=== PATIENT | female | born 1940 | race Caucasian/White ===

== ENCOUNTER → 2018-02-05 09:42 | Outpatient (CLI) | payer MEDICARE, OTHER, SELFPAY ==
--- NOTE | 2018-02-05 | DI.MG.S_ITS ---
BILATERAL DIGITAL SCREENING MAMMOGRAM 3D/2D WITH CAD POST LUMPECTOMY: 02/05/2018 CLINICAL: Routine screening. Personal history of left breast cancer. Comparison is made to exams dated: 02/04/2017 mammogram, 01/24/2017 mammogram, and 01/18/2016 mammogram - [facility]. The tissue of both breasts is heterogeneously dense. This may lower the sensitivity of mammography. Current study was also evaluated with a Computer Aided Detection (CAD) system. There are post operative findings in the left breast. No significant masses, calcifications, or other findings are seen in either breast. There has been no significant interval change. IMPRESSION: NEGATIVE There is no mammographic evidence of malignancy. A 1 year screening mammogram is recommended. NOTE: For mammograms, a report in lay terms will be sent to the patient. Approximately 15% of breast malignancies will not be visualized mammographically. In the management of a palpable breast mass, a negative mammogram must not discourage biopsy of a clinically suspicious lesion. Electronically Signed By: Milagros travis/yue:02/05/2018 15:07:26 copy to: AI ADHIKARI letter sent: Normal Exam ACR BI-RADS Category 1: Negative 3341F
== END ==
PROVIDERS: PCP Physician Assistant; Visit Provider Physician Assistant
DX: Z12.31 Encounter for screening mammogram for malignant neoplasm of breast (principal); Z85.3 Personal history of malignant neoplasm of breast; M85.851 Other specified disorders of bone density and structure, right thigh
CPT/HCPCS: 77063; 77067; 77080

== ENCOUNTER → 2018-04-08 13:59 | Outpatient (CLI) | payer MEDICARE, OTHER, SELFPAY ==
--- NOTE | 2018-04-08 | DI.RAD.S_ITS ---
PROCEDURE: XR KNEE LT 1TO2V INDICATIONS: PAIN IN LEFT KNEE TECHNIQUE: 2 views of the knee were acquired. COMPARISON: None. FINDINGS: Bones: No fractures or dislocations. No suspicious bony lesions. Soft tissues: No joint effusion. No suspicious soft tissue calcifications. IMPRESSION: No acute fractures or dislocations. Dictated by: Nain Caruso M.D. on 04/08/2018 at 15:30 Approved by: Nain Caruso M.D. on 04/08/2018 at 15:30
== END ==
PROVIDERS: Visit Provider Student in an Organized Health Care Education/Training Program
DX: M25.562 Pain in left knee (principal)
CPT/HCPCS: 73560

== ENCOUNTER → 2018-06-09 08:01 | Outpatient (CLI) | payer MEDICARE, OTHER, SELFPAY ==
--- NOTE | 2018-06-09 | DI.MRI.S_ITS ---
PROCEDURE: MR SHOULDER RT WO CON INDICATIONS: RIGHT SHOULDER PAIN TECHNIQUE: Noncontrast oblique coronal T2 fast spin echo with fat saturation, oblique sagittal T1 spin echo and T2 fast spin echo with fat saturation, axial T1 spin echo and T2 fast spin echo with fat saturation through the shoulder. COMPARISON: None. FINDINGS: Image quality: Excellent. Rotator cuff: There is full-thickness rupture of distal supraspinatus as well as anterior fibers of distal infraspinatus at their insertions on the greater tuberosity of humeral head with 2.7 cm medial retraction of torn tendon fibers to the level of acromioclavicular joint. Tendinosis and moderate grade articular surface partial thickness tear involving the posterior fibers of distal infraspinatus is also seen. There is tendinosis and moderate grade intrasubstance partial-thickness tear involving distal subscapularis. Sagittal images demonstrate moderate supraspinatus muscle atrophy and mild to moderate infraspinatus muscle atrophy. Bones and bursae: There is moderate acromioclavicular joint and glenohumeral joint osteoarthritis. Small to moderate amount of glenohumeral joint fluid in subacromial subdeltoid bursal fluid is seen. No gross loose body. Capsule and soft tissues: In the absence of intra-articular contrast, the labrum and glenohumeral ligaments appear intact. There is nonvisualization of the proximal intra-articular portion of long head biceps tendon suggestive of proximal long head of biceps tendon tear. The rotator interval appears normal, without fibrosis. The coracohumeral ligament is normal in thickness. IMPRESSION: 1. Full-thickness rupture of distal supraspinatus and anterior fibers of distal infraspinatus at their insertions greater tuberosity of humeral head with 2.7 cm medial retraction of torn tendon fibers to the level of acromioclavicular joint. 2. Tendinosis and moderate grade articular surface partial thickness involving posterior fibers of distal infraspinatus. Tendinosis and moderate grade intrasubstance partial-thickness tear involving distal subscapularis. 3. Moderate supraspinatus muscle atrophy and mild to moderate infraspinatus muscle atrophy. 4. Moderate acromioclavicular and glenohumeral joint osteoarthritis. Small to moderate amount of joint effusion and subacromial subdeltoid bursal fluid. 5. Suggestion of cord intra-articular portion of proximal long head of biceps tendon. 6. No gross focal labral tear. Dictated by: Carmelo Bahena M.D. on 06/09/2018 at 10:07 Approved by: Carmelo Bahena M.D. on 06/09/2018 at 10:18
== END ==
PROVIDERS: PCP Physician Assistant; Visit Provider Physician Assistant
DX: M25.511 Pain in right shoulder (principal); M75.121 Complete rotator cuff tear or rupture of right shoulder, not specified as traumatic; M19.011 Primary osteoarthritis, right shoulder; M25.411 Effusion, right shoulder
CPT/HCPCS: 73221

== ENCOUNTER → 2019-02-10 09:14 | Outpatient (CLI) | payer MEDICARE, OTHER, SELFPAY ==
--- NOTE | 2019-02-10 09:16 | DI.MG.S_ITS ---
BILATERAL DIGITAL SCREENING MAMMOGRAM 3D/2D WITH CAD POST LUMPECTOMY: 02/10/2019 CLINICAL: Routine screening. Personal history of left breast cancer. Comparison is made to exams dated: 02/05/2018 mammogram, 01/24/2017 mammogram, and 01/18/2016 mammogram - [facility]. The tissue of both breasts is heterogeneously dense. This may lower the sensitivity of mammography. Current study was also evaluated with a Computer Aided Detection (CAD) system. There are benign post operative findings in the left breast. There also are benign calcifications in both breasts. No significant masses, calcifications, or other findings are seen in either breast. There has been no significant interval change. IMPRESSION: There is no mammographic evidence of malignancy. A 1 year screening mammogram is recommended. This exam was interpreted at Station ID: [id number]. NOTE: For mammograms, a report in lay terms will be sent to the patient. Approximately 15% of breast malignancies will not be visualized mammographically. In the management of a palpable breast mass, a negative mammogram must not discourage biopsy of a clinically suspicious lesion. Electronically Signed By: Reginald gorman/yue:02/10/2019 11:37:49 copy to: AI ADHIKARI letter sent: Normal Exam ACR BI-RADS Category 2: Benign Finding(s) 3342F
[2019-02-10 11:16] LABS: Add Manual Diff / Slide Review NO; Basophils Absolute Auto 100 /uL (0-100); Basophils Percent Auto 1.1 % (0-2); Eosinophils Absolute Auto 100 /uL (0-450); Eosinophils Percent Auto 1.5 % (2-4); Hematocrit 42.6 % (36-46); Lymphocytes Absolute Auto 1800 /uL (1100-4500); Lymphocytes Percent Auto 32.9 % (25-40); Mean Corpuscular HGB Conc 32.8 % (30-36); Mean Corpuscular Hemoglobin 31.5 PG (26-34); Mean Corpuscular Volume 96.1 fL (80-100); Monocytes Absolute Auto 700 /uL (0-900); Monocytes Percent Auto 12.9 % (3-14); Neutrophils Absolute Auto 2800 /uL (1500-7000); Neutrophils Percent Auto 51.6 % (50-75); Platelet Count 224 X10^3/uL (150-400); Red Blood Cell Count 4.43 X10^6/uL (4.0-5.2); Red Cell Distribution Width 13.7 % (11.6-14.8); White Blood Cell Count 5.4 X10^3/uL (4.5-11.0)
[2019-02-10 11:38] LABS: Alanine Aminotransferase 21 IU/L (9-52); Albumin 4.1 g/dL (3.5-5.0); Albumin Globulin Ratio 1.3 (1.0-2.8); Alkaline Phosphatase 58 U/L (38-126); Aspartate Aminotransferase 22 IU/L (14-36); BUN Creatinine Ratio 16.7 (6-22); Bilirubin Total 0.5 mg/dL (0.2-1.3); Blood Urea Nitrogen 10 mg/dL (7-17); Calcium 9.4 mg/dL (8.4-10.2); Carbon Dioxide 29 mmol/L (22-32); Chloride 105 mmol/L (98-107); Cholesterol 195 mg/dL (140-199); Estimated Glomerular Filt Rate > 60.0 mL/min (>60); Globulin 3.2 g/dL (1.7-4.1); Glucose 106 mg/dL (80-110); HDL Cholesterol 65 mg/dL (40-60); HEMOLYSIS < 15 (0-50); LDL Cholesterol Calculated 100 mg/dL (<100); Sodium 142 mmol/L (137-145); Total Protein 7.3 g/dL (6.3-8.2); Triglycerides 150 mg/dL (35-150)
== END ==
PROVIDERS: PCP Nurse Practitioner; Visit Provider Nurse Practitioner
DX: Z00.00 Encounter for general adult medical examination without abnormal findings (principal); Z12.31 Encounter for screening mammogram for malignant neoplasm of breast; Z85.3 Personal history of malignant neoplasm of breast; M81.0 Age-related osteoporosis without current pathological fracture; Z78.0 Asymptomatic menopausal state; Z82.62 Family history of osteoporosis; Z90.722 Acquired absence of ovaries, bilateral; Z87.891 Personal history of nicotine dependence
CPT/HCPCS: 36415; 77063; 77067; 77080; 80053; 80061; 85025

== ENCOUNTER → 2019-02-24 13:40 | Oncology outpatient (ONC) | payer MEDICARE, OTHER, SELFPAY ==
--- NOTE | 2018-02-17 11:37 | P.PNONC_ITS ---
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 She is now 10 years out from that diagnosis. No findings whatsoever on exam today that would indicate disease recurrence. Patient has no clinical signs or symptoms of disease recurrence. Most recent mammogram February 05, 2018 was reported to be without evidence of malignancy. Bone density screen also February 05, 2018 demonstrated improved bone density. There was no blood work procured for todays visit. Return to clinic in 1 years time for provider visit, CBC, CMP. Continue with annual screening mammograms. Patient does have a history of osteopenia/ osteoporosis she was treated annually x 5 years with Reclast with excellent response recommend repeat bone density imaging in 1 year to demonstrate stability. 02/17/18 12:08 - Time Spent with Patient 35 minutes PN -Subjective Interval history: The patient is a 78 year old Female who is being seen in the clinic 02/17/2018 for diagnosis of early-stage triple negative breast cancer, in remission/ surveillance since original diagnosis made in February of 2008. She is now 10 years out from that diagnosis. She was receiving yearly Reclast [id number], bone density testing 02/05/2018 demonstrates excellent response to Reclast with significant increase in the AP spine, neck left femur and total left femur when compared to previous exam January 29, 2017. Danica has no new complaints whatsoever on exam today, states overall she is feeling very well. She takes no prescription medications aside from Crestor. She sees Candace Hutton PA-C annually for her primary care. Specifically she denies any changes with her breasts, no new lumps or bumps. No pain. No skin changes. She has not had any recent illnesses or infections. Activity tolerance is unchanged. Appetite is unchanged, weight is stable. Bladder and bowel habits are unchanged. No new pain. No headaches. Past Medical History The patient's past medical history is significant for: 1. Early-stage triple negative breast cancer, in remission since 2007. She is up to date with her imaging studies, including her last bilateral screening mammogram dated 01/11/2015, showing no evidence of recurrent disease. Breast exams are done formerly with Joanne Baires now by Candace Hutton PA-C who has replaced joanne. Pt. is scheduled for an appointment with Candace the end of this month. 2. Osteopenia, with her most recent bone density scan dated January 18, 2016, showing a definitive treatment response to her Reclast. Specifically, in the left neck of the femur in December of 2013 was -2.5, improved to -1.9 on January 18, 2016. Total Left Femur in 2013 -1.1 improved to -0.5 in 2015. Total Right femur -2.6 in 2013, improved to -2.4 in 2015. Results - Imaging Additional studies: Procedures Closed [endoscopic] biopsy of large intestine (09/08/13) Home Medications and Allergies Home Medications Medication Instructions Recorded Confirmed Type FLAXSEED (FLAXSEED OIL) 1 cap PO Q DAY #0 01/09/12 02/17/18 History CA PANTOTHENATE/FOLIC ACID/VIT 1 tab PO QDAY #0 01/12/13 02/17/18 History (MULTIVITAMIN) Coenzyme Q10 (#CO Q-10) 50 mg PO BID #0 01/12/13 02/17/18 History Fish Oil (Fish Oil 500 MG Softgel) 500 mg PO BID #0 01/12/13 02/17/18 History VITAMIN B COMPLEX (Vitamin B 1 tab PO Q DAY #0 01/12/13 02/17/18 History Complex) VITAMIN D (Vitamin D3) 1,000 unit PO QDAY #0 01/12/13 02/17/18 History VITAMIN E (#VITAMIN E MIXED) 100 iu PO Q DAY #0 01/12/13 02/17/18 History aspirin 81 mg PO QDAY #0 01/12/13 02/17/18 History rosuvastatin [Crestor] 10 mg PO QDAY #0 01/12/13 02/17/18 History acetaminophen [Tylenol] 325 mg PO Q4-6H PRN 02/17/18 02/17/18 History lutein 20 mg PO DAILY 02/17/18 02/17/18 History Allergies Allergy/AdvReac Type Severity Reaction Status Date / Time No Known Drug Allergies Allergy Verified 02/17/18 11:49 Exam Narrative: well appearing, appears younger than chronological age of 78. - Constitutional positive no acute distress, positive average body habitus - Routine HEENT Exam Head: Present: normocephalic, atraumatic Eye: Present: EOMI, PERRL, normal accommodation, conjunctivae pink. Absent: conjunctival icterus, scleral injection ENT: Present: mucous membranes moist - Routine Neck Exam Present: supple. Absent: lymphadenopathy - Routine Chest/Breast/Axilla Exam Chest wall exam standard: Absent: tenderness, mass Breast: Absent: tenderness, induration, mass, rashes Axillae: Absent: lymphadenopathy, mass, tenderness Comments: left lumpectomy - Routine Respiratory Exam Present: Clear to auscultation bilaterally. Absent: rales, rhonchi, wheezes - Routine Cardiovascular Exam Present: RRR, S1, S2. Absent: murmur, gallop, rubs, JVD - Routine Abdominal Exam Present: soft, normoactive bowel sounds. Absent: tenderness, distended, organomegaly - Routine Extremities Exam Absent: edema - Routine Skin Exam Present: intact, normal turgor. Absent: petechiae, rash - Routine Neurological Exam Present: alert, oriented X3 - Routine Psychiatric Exam Present: normal affect
[2018-02-17 11:47] VITALS: BP 145/85; PULSE 62; RESP 15; TEMP 37.2; O2SAT 98
[2019-02-24 13:47] VITALS: BP 139/64; PULSE 73; RESP 18; TEMP 36.7; O2SAT 100
--- NOTE | 2019-02-24 14:28 | P.PNONC_ITS ---
PN -Subjective Interval history: Diagnosis: Left-sided triple negative breast cancer Previous treatment: 1. Lumpectomy and sentinel node biopsy in February 2008 2. Adjuvant chemotherapy with what sounds like Adriamycin and Cytoxan 3. Adjuvant radiation Interval history: The patient is a 78 year old Female who is being seen in the clinic for diag nosis of early-stage triple negative breast cancer, in remission/surveillance since original diagnosis made in February of 2008. She is now 11 years out from that diagnosis. Since her last visit here, she has been feeling generally well and has no specific complaints today. She has not noted any changes or mass in the breast. She denies any new aches or pains. No fevers chills or sweats. Appetite and energy level have been stable. She did have recent oral surgery for a cyst. She has not noted any other changes in her health. Past Medical History The patient's past medical history is significant for: 1. Early-stage triple negative breast cancer, in remission since 2007. She is up to date with her imaging studies, including her last bilateral screening mammogram dated 01/11/2015, showing no evidence of recurrent disease. Breast exams are done formerly with Joanne Baires now by Candace Hutton PA-C who has replaced joanne. Pt. is scheduled for an appointment with Candace the end of this month. 2. Osteopenia, with her most recent bone density scan dated January 18, 2016, showing a definitive treatment response to her Reclast. Specifically, in the left neck of the femur in December of 2013 was -2.5, improved to -1.9 on January 18, 2016. Total Left Femur in 2013 -1.1 improved to -0.5 in 2015. Total Right femur -2.6 in 2013, improved to -2.4 in 2016. Home Medications and Allergies Home Medications Medication Instructions Recorded Confirmed Type FLAXSEED (FLAXSEED OIL) 1 cap PO Q DAY #0 01/09/12 02/24/19 History CA PANTOTHENATE/FOLIC ACID/VIT 1 tab PO QDAY #0 01/12/13 02/23/19 History (MULTIVITAMIN) Coenzyme Q10 (#CO Q-10) 50 mg PO BID #0 01/12/13 02/24/19 History Fish Oil (Fish Oil 500 MG Softgel) 500 mg PO BID #0 01/12/13 02/24/19 History VITAMIN B COMPLEX (Vitamin B 1 tab PO Q DAY #0 01/12/13 02/24/19 History Complex) VITAMIN D (Vitamin D3) 1,000 unit PO QDAY #0 01/12/13 02/24/19 History VITAMIN E (#VITAMIN E MIXED) 100 iu PO Q DAY #0 01/12/13 02/24/19 History aspirin 81 mg PO QDAY #0 01/12/13 02/23/19 History lutein 20 mg PO DAILY 02/17/18 02/24/19 History rosuvastatin 10 mg tablet 10 mg PO QDAY #90 tab 01/08/19 02/23/19 Rx naproxen sodium [Aleve] 220 mg PO Q12H PRN 02/24/19 02/24/19 History Allergies Allergy/AdvReac Type Severity Reaction Status Date / Time No Known Drug Allergies Allergy Verified 02/23/19 09:45 Exam Vital signs: Vital Signs Temp Pulse Resp BP Pulse Ox 02/24/19 13:47 98.1 F 73 18 139/64 100 Intake and Output 02/23/19 02/24/19 02/24/19 23:59 07:59 15:59 Other: Weight 76.6 kg Patient Weight 02/24/19 23:59 Weight 76.6 kg - Constitutional positive no acute distress, positive average body habitus - Routine HEENT Exam Head: Present: normocephalic, atraumatic Eye: Present: EOMI, PERRL. Absent: conjunctival icterus ENT: Present: mucous membranes moist, oropharynx clear - Routine Neck Exam Present: supple. Absent: lymphadenopathy, thyromegaly - Routine Chest/Breast/Axilla Exam Comments: Breast exam shows a well-healed incision on the lateral left breast. There is no nodularity or erythema. There are no suspicious masses. No masses in the right breast. No axillary adenopathy on either side. - Routine Respiratory Exam Present: Clear to auscultation bilaterally. Absent: rales, wheezes - Routine Cardiovascular Exam Present: RRR, S1, S2. Absent: murmur - Routine Abdominal Exam Present: soft, normoactive bowel sounds. Absent: tenderness, organomegaly, mass - Routine Extremities Exam Absent: cyanosis, clubbing, edema - Routine Back/Spine Exam Back/Spine: Absent: vertebral tenderness - Routine Skin Exam Present: intact. Absent: petechiae, rash - Routine Neurological Exam Present: alert, oriented X3 - Routine Psychiatric Exam Present: normal affect, normal thought process Results - Imaging Additional studies: Procedures Closed [endoscopic] biopsy of large intestine (09/08/13) Assessment and Plan (1) Breast cancer Current visit: No Status: Acute 79-year-old woman with a distant history of triple negative breast cancer. She is now 11 years out from her diagnosis. She has no evidence of disease. Recent mammogram was negative. At this point, I think her risk of relapse is very low. She is at somewhat increased risk compared to the general population for a 2nd primary cancer. She will need to have an annual breast exam and mammogram in the future. I explained that this could be done either here or by her primary physician and she prefers to follow up with her primary. She does have a history of osteoporosis. Recent bone density showed osteoporosis in the hip but not in the spine. She previously had been on zoledronic acid annually. However because of her recent jaw surgery, I think it would be prudent to wait sometime before resuming any bisphosphonate. The patient prefers to follow up with her primary physician. I have not scheduled a follow-up appointment for her here but would be happy to see her again in the future should any new problems arise.
--- NOTE | 2020-06-12 09:49 | ONC.MSW ---
Description: Referral Cancelled Activity: Received an urgent referral for pt from her PCP, sent last . Pt was sent to [facility], as they were not able to schedule with us last week. Pt actually did not need a new referral, and was already an established pt here. LEGAL SERVICE SPECIALIST spoke with the clinical support tech and confirmed the process for referrals and the timeline when an established pt can not be seen before requiring a new referral (3-years).
== END ==
PROVIDERS: PCP Nurse Practitioner
DX: Z85.3 Personal history of malignant neoplasm of breast (principal); Z08 Encounter for follow-up examination after completed treatment for malignant neoplasm; M81.0 Age-related osteoporosis without current pathological fracture
CPT/HCPCS: 99214

== ENCOUNTER 2019-10-07 13:21 | Day surgery (SDC) | payer MEDICARE, OTHER, SELFPAY ==
[2019-10-07 13:50] VITALS: BMI 28.8
[2019-10-07 13:57] VITALS: BP 153/88; PULSE 80; RESP 20; TEMP 36.8; O2SAT 94
[2019-10-07] MEDS: SODIUM CHLORIDE 0.9% 1,000 ML 200 ML IV (14:11)
--- NOTE | 2019-10-07 14:33 | PM.HP.1 ---
History of Present Illness History of Present Illness Date Patient Seen: 10/07/19 Time Patient Seen: 14:33 Chief complaint: [id number] Narrative: Patient presents for colorectal screening. Last colonoscopy was 5 years which was significant for adenomatous polyps which were removed. No personal or family history of colon cancer. On further history denies any recent gastrointestinal symptoms. No nausea, vomiting, abdominal pain, loss of appetite, unexplained weight loss, change in bowel habits, diarrhea, constipation, melena, hematochezia, or bright red blood per rectum. Patient History Medical History Breast cancer (Chronic ~2006) Cataracts, bilateral (Chronic ~2013) Chicken pox (Resolved) Eczema (Resolved) Essential tremor (Chronic) Fibroids (Chronic) History of urinary incontinence (Chronic) Measles (Resolved) Osteopenia (Chronic) Rubella (Resolved) Surgical History Anesthesia (Resolved) Hammer toe (Resolved ~2015) History of back surgery (Resolved ~1982) History of colonoscopy (Resolved) History of hysterectomy (Resolved ~1988) History of oral surgery (Resolved ~12/2018) Family & Social History Family History Father Cancer Mother History of heart disease Brother Hypertension Sister Hyperlipidemia Hypertension Grandfather Cancer Grandmother Hypertension Grandfather Kidney failure Family/Other Suicide Social History: household members spouse Tobacco & Substance use: Smoking Status Former smoker alcohol intake current alcohol intake frequency a few times a week Substance Use Type does not use Meds Home Medications and Allergies Home Medications Medication Instructions Recorded Confirmed Type aspirin 81 mg PO QDAY #0 01/12/13 10/07/19 History lutein 20 mg PO DAILY 02/17/18 10/07/19 History rosuvastatin 10 mg tablet 10 mg PO QDAY #90 tab 01/08/19 10/07/19 Rx naproxen sodium [Aleve] 220 mg PO Q12H PRN 02/24/19 10/07/19 History estradiol 10 mcg vaginal tablet 10 mcg VAG DAILY 90 Days #90 tab 06/04/19 10/07/19 Rx cholecalciferol (vitamin D3) 5,000 unit PO DAILY 10/07/19 10/07/19 History [Vitamin D3] multivitamin 1 cap PO DAILY 10/07/19 10/07/19 History tolterodine 4 mg PO DAILY 10/07/19 10/07/19 History Allergies Allergy/AdvReac Type Severity Reaction Status Date / Time No Known Drug Allergies Allergy Verified 10/07/19 13:44 Review of Systems Review of Systems Narrative: A 10 point review of systems is negative except as noted in the HPI Exam Vital Signs (past 8 hours): - 10/07/19 13:57 Temperature 98.3 F Pulse Rate 80 Respiratory Rate 20 Blood Pressure 153/88 H Pulse Oximetry 94 Oxygen Delivery Method Room Air Narrative Exam Narrative: General-no acute distress, well nourished HEENT-moist mucous membranes, no scleral icterus Neck-supple, no lymphadenopathy Chest- non labored respirations, clear to auscultation bilaterally Cardiac-regular rate no peripheral edema Abdomen-soft, nontender, non distended Extremities-warm, well perfused Neurological-alert and oriented, no focal deficits Assessment & Plan Assessment and plan (1) Screening for colon cancer: Current visit: Yes Status: Acute Assessment & Plan narrative: The patient requires colorectal screening and colonoscopy is recommended. Technical details were discussed. Risks, benefits, alternatives explained. Risks including but not limited to myocardial infarction, aspiration, bleeding, pain, missed lesion, incomplete examination, need for further radiographic studies, colonic perforation, and need for major abdominal surgery were discussed. All questions were answered to their satisfaction, and they are in agreement with this plan.
--- NOTE | 2019-10-07 14:37 | PM.OP.ENDO ---
Operative Date/Time/Diagnoses Date of procedure: 10/07/19 Time of procedure: 14:38 Pre-op diagnosis: History adenomatous polyps Post-op diagnosis: same Procedure & Clinicians Study performed: Colonoscopy Same procedure as scheduled: Yes Indications: History adenomatous polyp Surgeon: Lux South Procedure Notes SCOAP/Timeout: Performed Procedure in detail: Patient placed in left lateral decubitus position. Time out was performed. Procedural sedation was administered with Versed and Fentanyl. A rectal exam demonstrated no external hemorrhoids no internal masses. Colonoscopy scope was placed into the rectum and advanced through the colon to the cecum. The ileocecal valve was identified. The scope was then slowly withdrawn examining colon thoroughly in all directions. The colonoscopy was notable for the following 1. Sigmoid diverticulosis 2. Grade 1 internal hemorrhoids 3. No masses or polyps 4. Quality of prep excellent Scope withdrawal time: 7 Sedation minutes: 25 Findings: diverticulosis and internal hemorrhoids Specimen(s): none sent Complications: none Impression: Diverticulosis Post-procedure Recommendations: Colonscopy in 10 years Disposition: same day surgery
[2019-10-07] MEDS: MIDAZOLAM 5 MG/5 ML VIAL IV (15:02)
[2019-10-07] MEDS: fentaNYL 250 MCG/5 ML INJ IV (15:02)
[2019-10-07 15:05] VITALS: BP 139/79; PULSE 76; RESP 17; TEMP 36.7; O2SAT 95
[2019-10-07 15:10] VITALS: BP 129/64; PULSE 73; RESP 16; O2SAT 96
[2019-10-07 15:24] VITALS: BP 142/74; PULSE 74; RESP 16; TEMP 36.1; O2SAT 95
== END 2019-10-07 15:51 | disposition home or self-care (01) ==
PROVIDERS: PCP Nurse Practitioner; Referring Provider Surgery; Visit Provider Surgery
PROC: 0DJD8ZZ Inspection of Lower Intestinal Tract, Via Natural or Artificial Opening Endoscopic (ICD-10-PCS; CPT 45378; principal; 2019-10-07 14:30)
DX: Z12.11 Encounter for screening for malignant neoplasm of colon (principal); Z86.010 Personal history of colon polyps; K57.30 Diverticulosis of large intestine without perforation or abscess without bleeding; K64.0 First degree hemorrhoids
CPT/HCPCS: G0105; 99152; 99153; J2250; J3010

== ENCOUNTER → 2020-04-18 11:05 | Outpatient (CLI) | payer MEDICARE, OTHER, SELFPAY ==
--- NOTE | 2020-04-18 11:20 | DI.MG.S_ITS ---
Patient Name: JOHN RENE date: 1940 Sex: F Attending Physician: Donnie Indications: Date: 04/18/2020 11:13 At the request of: ELSA SANCHES Procedure: MM screening mammo BI BILATERAL DIGITAL SCREENING MAMMOGRAM 3D/2D WITH CAD POST LUMPECTOMY: 04/18/2020 CLINICAL: Routine screening. Personal history of left breast cancer. Comparison is made to exams dated: 02/10/2019 mammogram, 02/05/2018 mammogram, 01/24/2017 mammogram, 02/04/2017 mammogram, and 01/18/2016 mammogram - [facility]. The tissue of both breasts is heterogeneously dense. This may lower the sensitivity of mammography. Current study was also evaluated with a Computer Aided Detection (CAD) system. The left breast has post-operative findings. There is a possible developing 1 cm asymmetry in the left breast at 10 o'clock posterior depth. No other significant masses, calcifications, or other findings are seen in either breast. IMPRESSION: INCOMPLETE: NEEDS ADDITIONAL IMAGING EVALUATION The possible developing 1 cm asymmetry in the left breast is indeterminate. Additional views with possible ultrasound are recommended. This exam was interpreted at Station ID: [id number]. NOTE: For mammograms, a report in lay terms will be sent to the patient. Approximately 15% of breast malignancies will not be visualized mammographically. In the management of a palpable breast mass, a negative mammogram must not discourage biopsy of a clinically suspicious lesion. Electronically Signed By: Monty cali/yue:04/18/2020 12:31:43 copy to: AI ADHIKARI Continued Report - Page 2 of 2 Patient Name: JOHN RENE date: 1940 Sex: F Attending Physician: Donnie Indications: Date: 04/18/2020 11:13 At the request of: ELSA SANCHES Procedure: MM screening mammo BI letter sent: Additional Imaging Needed ACR BI-RADS Category 0: Incomplete 3340F
== END ==
PROVIDERS: PCP Nurse Practitioner; Referring Provider Nurse Practitioner; Visit Provider Nurse Practitioner
DX: Z12.31 Encounter for screening mammogram for malignant neoplasm of breast (principal); Z85.3 Personal history of malignant neoplasm of breast
CPT/HCPCS: 77063; 77067

== ENCOUNTER → 2020-05-12 14:57 | Outpatient (CLI) | payer MEDICARE, OTHER, SELFPAY ==
--- NOTE | 2020-05-12 14:58 | DI.US.S_ITS ---
PROCEDURE: US BREAST LT LIMITED COMPARISON: Merged With [facility], MG, MM SCREENING MAMMO BI, 04/18/2020, 11:20. INDICATIONS: abnormal mammogram, left breast FINDINGS: IMPRESSION: Dictated by: Gagan Albert M.D. on 05/12/2020 at 16:22 Approved by: Gagan Albert M.D. on 05/12/2020 at 16:24
--- NOTE | 2020-05-12 14:58 | DI.MG.S_ITS ---
UNILATERAL LEFT DIGITAL DIAGNOSTIC MAMMOGRAM 3D/2D WITH ADDITIONAL VIEWS POST LUMPECTOMY: 05/12/2020 CLINICAL: Additional evaluation requested from prior study. Comparison is made to exams dated: 04/18/2020 mammogram, 02/10/2019 mammogram, and 02/05/2018 mammogram - [facility]. The tissue of left breast is heterogeneously dense. This may lower the sensitivity of mammography. The left breast has post-operative findings. There is a 1 cm irregular mass with an obscured and spiculated margin in the left breast at 10 o'clock posterior depth. No other significant masses or calcifications are seen in the breast. IMPRESSION: INCOMPLETE: NEEDS ADDITIONAL IMAGING EVALUATION The 1 cm irregular mass in the left breast is indeterminate. An ultrasound is recommended. This exam was interpreted at Station ID: [id number]. NOTE: For mammograms, a report in lay terms will be sent to the patient. Approximately 15% of breast malignancies will not be visualized mammographically. In the management of a palpable breast mass, a negative mammogram must not discourage biopsy of a clinically suspicious lesion. Electronically Signed By: Gagan Albert M.D., jr/yue:05/12/2020 16:20:41 copy to: AI ADHIKARI ACR BI-RADS Category 0: Incomplete [id number]
--- NOTE | 2020-05-12 15:51 | DI.US.S_ITS ---
Diagnostic Imaging [address] [place] [id number] PHONE: [phone] Patient Name: JOHN RENE date: 1940 Sex: F Attending Physician: Donnie Indications: Date: 05/12/2020 15:56 At the request of: ELSA SANCHES Procedure: US breast LT limited LIMITED ULTRASOUND OF LEFT BREAST: 05/12/2020 CLINICAL: Patient returns today to evaluate a focal asymmetry in the left breast. No prior exams were available for comparison. Ultrasound of the left breast 11-2 o'clock region was performed. There is a 1.5 cm taller than wide irregular mass with an indistinct and angular margin in the left breast at 10 o'clock middle depth 8 cm from the nipple. This irregular mass is hypoechoic with posterior acoustic shadowing. There is associated architectural distortion. Color flow imaging demonstrates that there is increased vascularity. IMPRESSION: SUSPICIOUS OF MALIGNANCY The 1.5 cm taller than wide irregular mass in the left breast is suspicious of malignancy. An ultrasound guided biopsy is recommended. This exam was interpreted at Station ID: [id number]. Electronically Signed By: Gagan Albert M.D., jr/yue:05/12/2020 16:24:39 copy to: AI ADHIKARI letter sent: Biopsy Required Ultrasound BI-RADS: 4 Suspicious for malignancy
== END ==
PROVIDERS: PCP Nurse Practitioner; Referring Provider Nurse Practitioner; Visit Provider Nurse Practitioner
DX: R92.8 Other abnormal and inconclusive findings on diagnostic imaging of breast (principal); N63.22 Unspecified lump in the left breast, upper inner quadrant
CPT/HCPCS: 76642; 77065; G0279

== ENCOUNTER → 2020-05-31 12:29 | Outpatient (CLI) | payer MEDICARE, OTHER, SELFPAY ==
--- NOTE | 2020-05-31 | PATH_ITS ---
[facility] Accession Number: [id number] . 01 Material submitted: . breast - LEFT BREAST 10:00 . 01 Clinical history: . LEFT BREAST 10:00 8 CENTIMETERS FROM THE NIPPLE . 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 Specimen laterality: Left. Tumor site: 10 o'clock, 8 cm from nipple. Tumor size: Greatest dimension of largest invasive focus: 9 mm. Histologic type: Invasive carcinoma of no special type (ductal) by e-cadherin immunostain. Histologic grade: Grade 3. Glandular/tubular differentiation: Score 3; Nuclear pleomorphism: Score 3; Mitotic rate: Score 2. Overall grade: Grade 3 (8/9). Ductal carcinoma in situ: Not identified. Lymphovascular invasion: Not identified. Microcalcifications: Not identified. Ancillary studies: Please see microscopic section for biomarker studies; HER2 FISH studies pending. Results will be reported as an addendum. MRV 06/02/2020 1542 Local . 02 Comment: HER2 FISH studies pending; results will be reported as an addendum. . As part of ongoing bottle house quality control technician, this case is also reviewed by Dr. Stuart, who concurs with the given interpretation. . Results called to Kia Fields's nurse, Nohemy, on 06/02/2020 at approximately 2:08 p.m. . 02 Electronically signed: . Sayra Bruno MD, Pathologist NPI- [id number] . 01 Gross description: . Received one formalin-filled container, labeled with the patient's name and labeled LT breast. The specimen is received with a plastic filter in container, sample loose in container and consists of multiple fragments of yellow-carmona soft tissue and blood which range in size from less than 0.1 cm to 1.2 x 0.4 x 0.3 cm. All fragments are totally submitted in one cassette. Collection date per container: 05/31/20. No collection time per container. Possible collection time per requisition: 14:11. Possible total fixation time: Approximately 13 hours. ([id number]) /FRR 06/01/2020 0221 Local . 02 Microscopic: . Immunohistochemical studies are performed with the following results: . RESULTS: Block A1: EVANGELIST-3: Strongly positive. E-cadherin: Strongly positive. . The neoplastic cells are strongly immunopositive for EVANGELIST-3 and for E-cadherin. These studies support a breast origin and ductal differentiation. . CAP BREAST BIOMARKER REPORTING TEMPLATE: . Estrogen Receptor (ER) Status: Positive, greater than 95% of tumor nuclei. Average intensity of staining: Strong nuclear staining. Primary antibody: SP1 Progesterone Receptor (PgR) Status: Positive, ranges from approximately 65% of tumor nuclei in hot spots to approximately 30% overall. Average intensity of staining: Variable, strong to weak nuclear staining. Primary antibody: 1E2 HER2 (by immunohistochemistry): 2+ equivocal; FISH studies pending. Primary antibody: 4B5 . Cold Ischemia and Fixation Times: Meets requirements in the latest version of the ASCO/CAP guidelines. Testing performed on Block Number: . TECHNICAL NOTE: The scoring criteria for breast biomarkers by immunohistochemistry is based on the current ASCO/CAP guidelines (Magdiel et al, Arch Pathol Lab Med 2010: 134(6): 907-922 / Traci Trejo al, Arch Pathol Lab Med 2014: 138(2): 241-256). Deparaffinized sections of formalin fixed tissue (along with appropriate positive controls) are incubated with the above antibody(s). Using the automated Luther stainer, tissue is incubated with the designated antibody* which is then localized by a non-biotin, dual polymer detection system. The external controls are reviewed for appropriate reactivity and found to be adequate. Results on the target cell population are indicated above. These tests have not been validated on decalcified tissue. * This test was developed and its performance characteristics determined by [employer]. It has not been cleared or approved by the U.S. Food and Drug Administration. The FDA has determined that such clearance or approval is not necessary. This test is used for clinical purposes. It should not be regarded as investigational or for research. . 02 Pathologist provided ICD-10: C50.912 . 02 CPT . 869467, 268070, 384797, 023163, V40045 Performed at: 01 [facility] [address] [id number] MD Bo Sy MD Phone: [phone] Performed at: 02 [facility] [address] [place] [id number] MD Hanane Leslie MD Phone: [phone]
--- NOTE | 2020-05-31 | DI.MG.S_ITS ---
UNILATERAL LEFT DIGITAL DIAGNOSTIC MAMMOGRAM POST-NEEDLE BIOPSY: 05/31/2020 CLINICAL: Post clip placement. Comparison is made to exams dated: 05/12/2020 mammogram, 04/18/2020 mammogram, 02/10/2019 mammogram, and 02/05/2018 mammogram - [facility]. The tissue of left breast is heterogeneously dense. This may lower the sensitivity of mammography. There is a marker clip in the appropriate position in the left breast at 10 o'clock middle depth. This marker clip placement is at the biopsy site. IMPRESSION: POST PROCEDURE MAMMOGRAM FOR MARKER PLACEMENT There was a successful marker clip placement in the left breast middle depth. This exam was interpreted at Station ID: [id number]. NOTE: For mammograms, a report in lay terms will be sent to the patient. Approximately 15% of breast malignancies will not be visualized mammographically. In the management of a palpable breast mass, a negative mammogram must not discourage biopsy of a clinically suspicious lesion. Electronically Signed By: Eddi alba/:05/31/2020 15:43:13 copy to: AI ADHIKARI ACR BI-RADS Category Post-procedure mammogram for marker placement
--- NOTE | 2020-05-31 12:35 | DI.US.S_ITS ---
ULTRASOUND GUIDED BIOPSY LEFT BREAST USING VACUUM DEVICE WITH MARKING DEVICE INSERTED: 05/31/2020 CLINICAL: Left breast mass. PATIENT CONSENT: Risks (minor bleeding, infection, vasovagal reaction and repeat procedure), benefits and alternatives were explained to the patient and written informed consent was obtained. Correlation is made to exams dated: 05/31/2020 mammogram, 05/12/2020 ultrasound, 05/12/2020 mammogram, 04/18/2020 mammogram, 02/10/2019 mammogram, and 02/05/2018 mammogram - [facility]. An ultrasound guided biopsy using real-time ultrasound was performed for the irregular shaped mass located in the left breast at 10 o'clock middle depth. The skin was prepped in the usual manner. Local anesthetic was administered to the access site. A small incision was made in the breast. The abnormality was approached from the lateral aspect. A biopsy needle was placed adjacent to the abnormality under ultrasound guidance. Once the needle was documented to be in the correct location, six specimens were obtained using the Mammotome biopsy system. A clip was inserted into the biopsy cavity. The specimens were sent to the laboratory for pathological analysis. IMPRESSION: ULTRASOUND GUIDED BIOPSY MALIGNANT Ultrasound guided biopsy of the mass in the left breast at 10 o'clock middle depth was successful. Pathology indicates malignant invasive mammary carcinoma (IMC). Pathology results are concordant with imaging findings. A surgical/oncologic consultation is recommended. This exam was interpreted at Station ID: [id number]. Eddi alba,aty/:06/07/2020 23:03:41 copy to: AI ADHIKARI
== END ==
PROVIDERS: PCP Nurse Practitioner; Referring Provider Nurse Practitioner; Visit Provider Nurse Practitioner
DX: C50.212 Malignant neoplasm of upper-inner quadrant of left female breast (principal); Z17.0 Estrogen receptor positive status [ER+]
CPT/HCPCS: 19083; 77065

== ENCOUNTER → 2022-01-24 08:30 | Outpatient (CLI) | payer MEDICARE, OTHER, SELFPAY ==
[2022-01-24 10:05] LABS: Alanine Aminotransferase 19 IU/L (<35); Albumin 4.4 g/dL (3.5-5.0); Albumin Globulin Ratio 1.5 (1.0-2.8); Alkaline Phosphatase 54 U/L (38-126); Aspartate Aminotransferase 23 IU/L (14-36); BUN Creatinine Ratio 20.3 (6-22); Bilirubin Total 0.6 mg/dL (0.2-1.3); Blood Urea Nitrogen 14 mg/dL (7-17); Calcium 9.5 mg/dL (8.4-10.2); Carbon Dioxide 26 mmol/L (22-32); Chloride 106 mmol/L (98-107); Cholesterol 197 mg/dL (140-199); Estimated Glomerular Filt Rate > 60 mL/min (>60); Globulin 2.9 g/dL (1.7-4.1); Glucose 116 mg/dL (80-110); HDL Cholesterol 59 mg/dL (40-60); HEMOLYSIS < 15 (0-50); LDL Cholesterol Calculated 110 mg/dL (<100); Potassium 4.5 mmol/L (3.4-5.1); Sodium 141 mmol/L (137-145); Total Protein 7.3 g/dL (6.3-8.2); Triglycerides 139 mg/dL (35-150)
[2022-01-24 10:18] LABS: Free T3, Triiodothyronine Free 3.36 pg/mL (2.77-5.27); Free T4, Direct Thyroxine 1.28 ng/dL (0.78-2.19)
[2022-01-24 10:31] LABS: Thyroid Stimulating Hormone 2.28 uIU/mL (0.47-4.68)
[2022-01-24 19:05] LABS: Hep C Virus Ab w/Reflex Quant NEGATIVE s/c (NEGATIVE)
== END ==
PROVIDERS: Family Provider Nurse Practitioner; PCP Nurse Practitioner; Referring Provider Nurse Practitioner; Visit Provider Nurse Practitioner
DX: E78.2 Mixed hyperlipidemia (principal); Z79.899 Other long term (current) drug therapy; Z11.59 Encounter for screening for other viral diseases
CPT/HCPCS: 36415; 80053; 80061; 84439; 84443; 84481; 86803

== ENCOUNTER 2022-03-14 10:30 | Outpatient (RCR) | payer MEDICARE, OTHER, SELFPAY ==
--- NOTE | 2021-12-25 17:50 | PT.OIE ---
Current Diagnoses Muscle weakness (generalized) (12/25/21) Other abnormalities of gait and mobility (12/25/21) Unspecified fall, initial encounter (12/25/21) Activity, other involving muscle strengthening exercises (12/25/21) Past Medical History (Last Reviewed 11/20/21 @ 15:11 by AMLOU Salinas) Atrophy of vagina Bladder prolapse Breast cancer Breast cancer (~2006) Cataracts, bilateral (~2013) Chicken pox Eczema Elevated blood pressure reading in office with white coat syndrome, without diagnosis of hypertension Essential tremor Fibroids H/O left mastectomy History of back surgery (~1982) History of colonoscopy History of oral surgery (~12/2018) History of urinary incontinence Hyperlipidemia Measles Osteopenia 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 Physical Therapy Initial Evaluation PT-OP-A Visit Information Start: 12/21/21 18:19 Freq: Status: Active Protocol: Document 12/25/21 11:20 LRN (Rec: 12/25/21 12:37 ERICA [id number]) Out-Patient Physical Therapy Visit Information Visit Information Visit Type Initial Evaluation Visit Start Time 11:20 Visit Stop Time 12:10 Total Visit Minutes 50 Visit Number 1 Evaluation Information Evaluation Date 12/25/21 Precautions Precautions Bilateral mastectomy - 2 yrs ago and had a small prosthesis added, and still taking cancer medication but no signs of cancer currently, uncontrolled blood pressure. PT-OP-B Current Condition Start: 12/21/21 18:19 Freq: Status: Active Protocol: Document 12/25/21 11:20 LRN (Rec: 12/25/21 12:37 EVAN [id number]) Current Condition History of Current Condition Onset Date 4 months ago dizziness Current Complaints Weakness of the legs, fear of falling downstairs, sometimes balance problem History of Current Condition 3 months ago when waking the room was swimming. Dizziness went away and just the past 2 weeks ago it started again. Pt also notes after bending over (one event) to pick something up she had an episode of sera room spinning. She has not had any other experiences since that time. Last summer her kids noticed she was starting to hold onto things. She was not able to go down stairs without hanging onto the house. States she needed to hang onto something going down stairs due to weakness of the legs and fear of falling down the stairs. She denies fear of falling while walking around the house . Fell last week trying to kick her L shoe off her feet and fell onto the floor. States she will now sit on her bed to remove her shoes. Tries to be careful walking on uneven ground. Prior Treatments and Tests None Treatment Goals Patient/Caregiver Goals Pt is not sure of the goal. States her physician felt she needed therapy due to her need of grabbing railings, and her recent fall trying to kick her shoes off. Prior Functional Status Baseline Function- ADL's Independent Baseline Function- Mobility Independent Baseline Function- Recreation/Hobbies Able to clean house and garden without difficulty. Current Functional Impairments (Reported) Functional Limitations- ADL's Keeps house and gardens, no problems with these activities . Functional Limitations- Mobility/Gait Ambulates with lean to the right. Personal Factors Other Personal Factors That May Effect Active with gardening, Therapy/Recovery mastectomy in 06/2019 resulting from having large breasts to small implanted breasts. PT-OP-C Subjective Start: 12/21/21 18:19 Freq: Status: Active Protocol: Document 12/25/21 11:20 LRN (Rec: 12/25/21 12:37 LRN [id number]) Patient Questionnaires ABC- Activity Specific Balance Confidence Scale ABC Score 83 ABC Functional Impairment 1 to <20% Impaired (Score 81- 99) OP-PT Pain Assessment Pain Assessment Grid Paper Pain Assessment Grid Completed Yes PT-OP-D Balance Start: 12/21/21 18:19 Freq: Status: Active Protocol: Document 12/25/21 11:20 LRN (Rec: 12/25/21 12:37 LRN [id number]) Balance Tests Single Limb Standing Single Limb- Right 0 Single Limb- Left 1 PT-OP-E Functional Tests Start: 12/21/21 18:19 Freq: Status: Active Protocol: Document 12/25/21 11:20 LRN (Rec: 12/25/21 12:37 LRN [id number]) Functional Tests Timed Up and Go (TUG) Score 17 Comments Webbed chair, no assitvie device. TUG Impairment Rating 60 to <80% Impaired (Score 16- 17) PT-OP-G Mobility & Gait Start: 12/21/21 18:19 Freq: Status: Active Protocol: Document 12/25/21 11:20 LRN (Rec: 12/25/21 12:37 LRN [id number]) OP Mobility Evaluation Bed Mobility Rolling Independent Supine to and from Sit Independent Transfers Sit to Stand Sit <> Stand with WBing more on the L LE. OP Gait Assessment Gait Gait Assistance Required: Independent Assistive Devices Assistive Device None Gait Deviations General Gait Pattern Lateral Trunk Lean Comments Gait Comments Leans R on R SLS phase Stair Climbing Evaluation Comments Stair Climbing Comments Pt reports needing hand support to safely descend stairs. PT-OP-J Posture/Palpation/Skin Start: 12/21/21 18:19 Freq: Status: Active Protocol: Document 12/25/21 11:20 LRN (Rec: 12/25/21 12:37 LRN [id number]) Posture Evaluation Position Standing T-Spine Posture Flattened L-Spine Posture Increased Lordosis Shoulder Posture (L) Elevated Arm Posture (L) Internally Rotated,(R) Internally Rotated Hip Posture (L) Externally Rotated,(R) Externally Rotated PT-OP-K Range of Motion Start: 12/21/21 18:19 Freq: Status: Active Protocol: Document 12/25/21 11:20 LRN (Rec: 12/25/21 12:37 LRN [id number]) Ankle and Foot Goniometric Range of Motion Ankle and Foot Right Active Ankle/Foot ROM WFL No Testing Position Supine Dorsiflexion with Knee Extended 0 Eversion 10 Left Active Ankle/Foot ROM WFL No Testing Position Supine Dorsiflexion with Knee Extended 6 Eversion 28 PT-OP-M Strength Start: 12/21/21 18:19 Freq: Status: Active Protocol: Document 12/25/21 11:20 LRN (Rec: 12/25/21 12:37 LRN [id number]) Hand Assistant Softball Coach/Pinch Strength Hand Dominance Hand Dominance Right Hip Strength Hip Manual Muscle Testing Right Comments Strength overall is 3/5. Left Adduction 5 Normal Comments Strength overall is 3/5 except as indicated above. Knee Strength Knee Manual Muscle Testing Right Flexion (S2) 3 Fair Extension (L3) 3 Fair Left Flexion (S2) 3 Fair Extension (L3) 5 Normal Ankle/Foot Strength Ankle and Foot Manual Muscle Testing Right Dorsiflexion (L4) 3 Fair Plantarflexion (S1) 4 Good Inversion 5 Normal Eversion (S1) 5 Normal Left Dorsiflexion (L4) 3 Fair Plantarflexion (S1) 4- Good- Inversion 5 Normal Eversion (S1) 5 Normal PT-OP-Q Treatments Start: 12/21/21 18:19 Freq: Status: Active Protocol: Document 12/25/21 11:20 LRN (Rec: 12/25/21 12:37 [facility] [id number]) Self-Care/Home Management Treatment Education Other Education Discussed results of evaluation, goals at length, and plan of care (POC). Pt agreeable to goals and POC. PT-OP-T Assessment and Plan Start: 12/21/21 18:19 Freq: Status: Active Protocol: Document 12/25/21 11:20 LRN (Rec: 12/25/21 12:37 [facility] [id number]) Physical Therapy Assessment Rehab Potential Rehabilitation Potential Excellent Evaluation Complexity Number of Personal Factors/Comorbidities 1-2 Number of Body Systems Impaired 4 or More Clinical Presentation at Evaluation Evolving Impairments Impairments Activity Tolerance,Balance, Functional Activities,Gait, Pain,Posture,ROM,Strength, Transfers Goals Four Impairment Decreased balance with increased risk of falling Impairment SLS is 0 secs RLE, 1 sec LLE. TUG score is 17 secs (60<80% impaired, score 16-17) Short Term Goal (STG) Pt will be able to SLS no less than 5 secs bilaterally and TUG score 14-15 secs (50<60% impared). STG Duration 02/07/22 Fibre Composite Technician Goal (LTG) Improve TUG 12 secs or less ( 20<40% impaired score 12-13 secs; 1<20% impaired, score 11 ) LTG Duration 03/25/22 Three Impairment Gait disturbance Short Term Goal (STG) Pt will demonstrate appropriate use of an assistive device outside the home on unlevel surface (cane) with gait. STG Duration 01/11/22 Fibre Composite Technician Goal (LTG) Ability to walk on uneven surface (yard/garden) without fear of falling with a cane. LTG Duration 03/25/22 Two Impairment LE weaknesss Short Term Goal (STG) Able to sit to building stonecutter a contolled manner without use of arms and equal WBing through the legs. STG Duration 01/25/22 Fibre Composite Technician Goal (LTG) Increase hip AB/flex/Ext; knee gayle knee flex & R knee ext, & ankle strength 1 grade (4/5) . LTG Duration 03/25/22 One Impairment Lacks appropriate self care HEP Fibre Composite Technician Goal (LTG) Pt will be independent with a self care HEP. LTG Duration 03/25/22 Assessment Summary Assessment Pt is a 81 yr old female with a short history of falling, but complaints of weakness in her LE's that make her fearful of falling when descending stairs. She presents with postural deviation of trunk in R sidebend and gait disturbance of walking with trunk lean to the R, possibly from hip and core weakness. She definitely has LE weakness and decreased mobiltiy of the ankles and decreased balance with very poor SLS ability. TUG score indicates instability with gait/balance placing her at risk of falling . Interestingly her Activities-Specific Balance Confidence (ABC) Scale score is 83, indicating only 1<10% impairment. The pt will benefit from skilled physical therapy to improve strength, balance, stability with gait and placement on a HEP. Physical Therapy Plan Frequency and Duration Frequency of Treatment 2x/Week Plan of Care Start Date 12/25/21 Plan of Care End Date 03/25/22 Therapeutic Interventions Therapeutic Interventions Aquatic Therapy,Gait Training, Home Exercise Program,Manual Therapy,Neuromuscular Re- education,Patient/Caregiver Education,Self-Care/Home Management,Therapeutic Activities,Therapeutic Exercises Modalities Cold Pack/Ice Massage,Hot Packs Next Visit Focus/Plan Next Note Type Treatment Note Next Visit Plan Assess stair ambulation and DGI, BROWN. Assess and issue HEP for limited hip mobility. Gait training with SPC on level and uneven ground, HEP: Ankle/knee/hip strengthening. HEP: Ankle DF ROM and hip ROM Balance training & HEP
--- NOTE | 2021-12-25 17:51 | PT.OPPOC ---
Physical, Occupational & Speech Therapy At [facility] Current Diagnoses Muscle weakness (generalized) (12/25/21) Other abnormalities of gait and mobility (12/25/21) Unspecified fall, initial encounter (12/25/21) Activity, other involving muscle strengthening exercises (12/25/21) Visit Care Team Role Provider Type MALOU Salinas Attending Provider Advanced Performance Improvement Analyst Family Provider Primary Care Provider Referring Provider Specialty: Family Practice Address: [address] [place] [address], [id number] Email: [email or web address] Plan Of Care PT-OP-T Assessment and Plan Start: 12/21/21 18:19 Freq: Status: Active Protocol: Document 12/25/21 11:20 LRN (Rec: 12/25/21 12:37 LRN [id number]) Physical Therapy Assessment Rehab Potential Rehabilitation Potential Excellent Evaluation Complexity Number of Personal Factors/Comorbidities 1-2 Number of Body Systems Impaired 4 or More Clinical Presentation at Evaluation Evolving Impairments Impairments Activity Tolerance,Balance, Functional Activities,Gait, Pain,Posture,ROM,Strength, Transfers Goals Four Impairment Decreased balance with increased risk of falling Impairment SLS is 0 secs RLE, 1 sec LLE. TUG score is 17 secs (60<80% impaired, score 16-17) Short Term Goal (STG) Pt will be able to SLS no less than 5 secs bilaterally and TUG score 14-15 secs (50<60% impared). STG Duration 02/07/22 Motor Installer Goal (LTG) Improve TUG 12 secs or less ( 20<40% impaired score 12-13 secs; 1<20% impaired, score 11 ) LTG Duration 03/25/22 Three Impairment Gait disturbance Short Term Goal (STG) Pt will demonstrate appropriate use of an assistive device outside the home on unlevel surface (cane) with gait. STG Duration 01/11/22 [facility] Goal (LTG) Ability to walk on uneven surface (yard/garden) without fear of falling with a cane. LTG Duration 03/25/22 Two Impairment LE weaknesss Short Term Goal (STG) Able to sit to senior planning analyst a contolled manner without use of arms and equal WBing through the legs. STG Duration 01/25/22 [facility] Goal (LTG) Increase hip AB/flex/Ext; knee gayle knee flex & R knee ext, & ankle strength 1 grade (4/5) . LTG Duration 03/25/22 One Impairment Lacks appropriate self care HEP [facility] Goal (LTG) Pt will be independent with a self care HEP. LTG Duration 03/25/22 Assessment Summary Assessment Pt is a 81 yr old female with a short history of falling, but complaints of weakness in her LE's that make her fearful of falling when descending stairs. She presents with postural deviation of trunk in R sidebend and gait disturbance of walking with trunk lean to the R, possibly from hip and core weakness. She definitely has LE weakness and decreased mobiltiy of the ankles and decreased balance with very poor SLS ability. TUG score indicates instability with gait/balance placing her at risk of falling . Interestingly her Activities-Specific Balance Confidence (ABC) Scale score is 83, indicating only 1<10% impairment. The pt will benefit from skilled physical therapy to improve strength, balance, stability with gait and placement on a HEP. Physical Therapy Plan Frequency and Duration Frequency of Treatment 2x/Week Plan of Care Start Date 12/25/21 Plan of Care End Date 03/25/22 Therapeutic Interventions Therapeutic Interventions Aquatic Therapy,Gait Training, Home Exercise Program,Manual Therapy,Neuromuscular Re- education,Patient/Caregiver Education,Self-Care/Home Management,Therapeutic Activities,Therapeutic Exercises Modalities Cold Pack/Ice Massage,Hot Packs Next Visit Focus/Plan Next Note Type Treatment Note Next Visit Plan Assess stair ambulation and DGI, BROWN. Assess and issue HEP for limited hip mobility. Gait training with SPC on level and uneven ground, HEP: Ankle/knee/hip strengthening. HEP: Ankle DF ROM and hip ROM Balance training & HEP Plan of Care Dates Plan of Care Start Date 12/25/21 Plan of Care End Date 03/25/22 Electronically Signed by: Milagros Galvan, PT 12/25/21 1422 If you are in agreement with this Plan of Care, please return a signed and dated copy. I have reviewed this Plan of Care and certify that the skilled therapy services above are required to meet the patient?s needs. Physician Signature Date Printed Name and Credentials Clinical Instructor Signature Printed Name and Credentials
--- NOTE | 2021-12-27 17:19 | PT.OTN ---
Current Diagnoses Muscle weakness (generalized) (12/27/21) Other abnormalities of gait and mobility (12/27/21) Unspecified fall, initial encounter (12/27/21) Activity, other involving muscle strengthening exercises (12/27/21) Physical Therapy Treatment Note PT-OP-A Visit Information Start: 12/21/21 18:19 Freq: Status: Active Protocol: Document 12/27/21 14:38 LRN (Rec: 12/27/21 15:22 LRN [id number]) Out-Patient Physical Therapy Visit Information Visit Information Visit Type Treatment Note Visit Start Time 14:38 Visit Stop Time 15:18 Total Visit Minutes 40 Visit Number 2 Evaluation Information Evaluation Date 12/25/21 Precautions Precautions Bilateral mastectomy - 2 yrs ago and had a small prosthesis added, and still taking cancer medication but no signs of cancer currently, uncontrolled blood pressure. PT-OP-B Current Condition Start: 12/21/21 18:19 Freq: Status: Active Protocol: Document 12/25/21 11:20 LRN (Rec: 12/25/21 12:37 LRN [id number]) Current Condition History of Current Condition Onset Date 4 months ago dizziness Current Complaints Weakness of the legs, fear of falling downstairs, sometimes balance problem History of Current Condition 3 months ago when waking the room was swimming. Dizziness went away and just the past 2 weeks ago it started again. Pt also notes after bending over (one event) to pick something up she had an episode of [facility] room spinning. She has not had any other experiences since that time. Last summer her kids noticed she was starting to hold onto things. She was not able to go down stairs without hanging onto the house. States she needed to hang onto something going down stairs due to weakness of the legs and fear of falling down the stairs. She denies fear of falling while walking around the house . Fell last week trying to kick her L shoe off her feet and fell onto the floor. States she will now sit on her bed to remove her shoes. Tries to be careful walking on uneven ground. Prior Treatments and Tests None Treatment Goals Patient/Caregiver Goals Pt is not sure of the goal. States her physician felt she needed therapy due to her need of grabbing railings, and her recent fall trying to kick her shoes off. Prior Functional Status Baseline Function- ADL's Independent Baseline Function- Mobility Independent Baseline Function- Recreation/Hobbies Able to clean house and garden without difficulty. Current Functional Impairments (Reported) Functional Limitations- ADL's Keeps house and gardens, no problems with these activities . Functional Limitations- Mobility/Gait Ambulates with lean to the right. Personal Factors Other Personal Factors That May Effect Active with gardening, Therapy/Recovery mastectomy in 06/2019 resulting from having large breasts to small implanted breasts. PT-OP-C Subjective Start: 12/21/21 18:19 Freq: Status: Active Protocol: Document 12/27/21 14:38 LRN (Rec: 12/27/21 15:22 LRN [id number]) OP-PT Subjective Patient Comments Patient Comments Has lift in R shoe due to previous history and knowledge of shortened RLE per [facility] PT in [place]. PT-OP-D Balance Start: 12/21/21 18:19 Freq: Status: Active Protocol: Document 12/25/21 11:20 LRN (Rec: 12/25/21 12:37 LRN [id number]) Balance Tests Single Limb Standing Single Limb- Right 0 Single Limb- Left 1 PT-OP-E Functional Tests Start: 12/21/21 18:19 Freq: Status: Active Protocol: Document 12/27/21 14:38 LRN (Rec: 12/27/21 15:22 LRN [id number]) Functional Tests Dynamic Gait Index (DGI) Score 21 DGI Impairment Rating 1 to <20% Impaired (Score 20- 23) PT-OP-G Mobility & Gait Start: 12/21/21 18:19 Freq: Status: Active Protocol: Document 12/27/21 14:38 LRN (Rec: 12/27/21 15:22 LRN [id number]) Stair Climbing Evaluation Evaluation Level of Assist On Stairs Independent Devices Stair Climbing Assistive Devices Left Railing,Right Railing Technique/Endurance Stair Climbing Direction Ascend and Descend Stair Climbing Technique Step Over Step Number of Steps Climbed 4 Stair Climbing Set # Repetitions (reps) 1 Comments Stair Climbing Comments Able to go Up stairs with R railing and downstairs with R railing. Pt jumps up when leading with RLE, moderately uncontrolled when going down leading with LLE and she rotates to the R. PT-OP-J Posture/Palpation/Skin Start: 12/21/21 18:19 Freq: Status: Active Protocol: Document 12/25/21 11:20 LRN (Rec: 12/25/21 12:37 LRN [id number]) Posture Evaluation Position Standing T-Spine Posture Flattened L-Spine Posture Increased Lordosis Shoulder Posture (L) Elevated Arm Posture (L) Internally Rotated,(R) Internally Rotated Hip Posture (L) Externally Rotated,(R) Externally Rotated PT-OP-K Range of Motion Start: 12/21/21 18:19 Freq: Status: Active Protocol: Document 12/25/21 11:20 LRN (Rec: 12/25/21 12:37 LRN [id number]) Ankle and Foot Goniometric Range of Motion Ankle and Foot Right Active Ankle/Foot ROM WFL No Testing Position Supine Dorsiflexion with Knee Extended 0 Eversion 10 Left Active Ankle/Foot ROM WFL No Testing Position Supine Dorsiflexion with Knee Extended 6 Eversion 28 PT-OP-M Strength Start: 12/21/21 18:19 Freq: Status: Active Protocol: Document 12/25/21 11:20 LRN (Rec: 12/25/21 12:37 LRN [id number]) Hand Backend Java Developer/Pinch Strength Hand Dominance Hand Dominance Right Hip Strength Hip Manual Muscle Testing Right Comments Strength overall is 3/5. Left Adduction 5 Normal Comments Strength overall is 3/5 except as indicated above. Knee Strength Knee Manual Muscle Testing Right Flexion (S2) 3 Fair Extension (L3) 3 Fair Left Flexion (S2) 3 Fair Extension (L3) 5 Normal Ankle/Foot Strength Ankle and Foot Manual Muscle Testing Right Dorsiflexion (L4) 3 Fair Plantarflexion (S1) 4 Good Inversion 5 Normal Eversion (S1) 5 Normal Left Dorsiflexion (L4) 3 Fair Plantarflexion (S1) 4- Good- Inversion 5 Normal Eversion (S1) 5 Normal PT-OP-Q Treatments Start: 12/21/21 18:19 Freq: Status: Active Protocol: Document 12/27/21 14:38 LRN (Rec: 12/27/21 15:22 LRN [id number]) Therapeutic Exercises Sitting Exercises Ankle EV Sitting Exercise Name Active Ankle EV Side bilateral Equipment Used towel roll between knees Reps/Minutes 15x 2 Comments Cuing needed to keep from hip ERing Ankle DF Sitting Exercise Name Active ankle DF Side bilateral Reps/Minutes 15x 2 Standing Exercises Ankle DF Standing Exercise Name Active ankle DF Side bilateral Equipment Used railing Reps/Minutes 10x 3 Comments Cuing for mvmt at ankle only Gastroc stretch Standing Exercise Name Gastroc stretch Side bilateral Equipment Used HIPOLITO Reps/Minutes 1'x 2 Different hgt step ups Standing Exercise Name 6 4 , 2 step ups and down with R leg Equipment Used // bars Reps/Minutes 4' Step ups/downs Standing Exercise Name 6 step Side bilateral Equipment Used Railing Reps/Minutes 10x each side Neuro Re-Education Treatment Balance Activities Step around obstacles Details Weaving in/out of cones Reps/Duration 15' x 2 Comments Cuing for regular walking. Noted pt taking slower steps around cones. Stepping over obstacles Details Stepping over hurdles Reps/Duration 15' x 8 Comments Pt decreased episodes of foot catching on hurdles with practice Turn and stop Details Walking, then turning 180 deg' s and stopping Reps/Duration 3x Walking speed change Details Walking with speed changes Reps/Duration 40' x 4 Walking looking up/down Details Walking looking up/down Reps/Duration 40' x 4 Walking with head turns Details Walking with head turns Reps/Duration 40' x 4 Self-Care/Home Management Treatment Education Patient Education Home Exercise Program Activities Self-Care/Home Management Activities Issued & reviewed HEP: Ankle DF, EV strengthening. PT-OP-T Assessment and Plan Start: 12/21/21 18:19 Freq: Status: Active Protocol: Document 12/27/21 14:38 LRN (Rec: 12/27/21 15:22 LRN [id number]) Physical Therapy Assessment Goals Four Impairment Decreased balance with increased risk of falling Impairment SLS is 0 secs RLE, 1 sec LLE. TUG score is 17 secs (60<80% impaired, score 16-17) Short Term Goal (STG) Pt will be able to SLS no less than 5 secs bilaterally and TUG score 14-15 secs (50<60% impared). STG Duration 02/07/22 Speed Belt Sander Goal (LTG) Improve TUG 12 secs or less ( 20<40% impaired score 12-13 secs; 1<20% impaired, score 11 ) LTG Duration 03/25/22 Three Impairment Gait disturbance Short Term Goal (STG) Pt will demonstrate appropriate use of an assistive device outside the home on unlevel surface (cane) with gait. STG Duration 01/11/22 Detention Goal (LTG) Ability to walk on uneven surface (yard/garden) without fear of falling with a cane. LTG Duration 03/25/22 Two Impairment LE weaknesss Short Term Goal (STG) Able to sit to wearing apparel presser a contolled manner without use of arms and equal WBing through the legs. STG Duration 01/25/22 Speed Belt Sander Goal (LTG) Increase hip AB/flex/Ext; knee gayle knee flex & R knee ext, & ankle strength 1 grade (4/5) . LTG Duration 03/25/22 One Impairment Lacks appropriate self care HEP Detention Goal (LTG) Pt will be independent with a self care HEP. (12/27/21: HEP: Ankle DF in sit & stand and sitting ankle EV strengthening) LTG Duration 03/25/22 (12/27/21: Progressed) Progress Towards Goals Progress Comments Progressed HEP. Assessment Summary Assessment DGI is 21/24, indicating less chance of falling (1<20% impaired). Pt ambs stairs with use of railing on stairs with postural modifications on descent (rotating body and LE to the R) and uses notable shove off in ascent and moderately uncontrolled drop in going down stairs with LLE leading. Pt is very weak with ankle DF and has decreased mobility. Decreased mobility of L ankle EV. Physical Therapy Plan Frequency and Duration Frequency of Treatment 2x/Week Plan of Care Start Date 12/25/21 Plan of Care End Date 03/25/22 Next Visit Focus/Plan Next Note Type Treatment Note Next Visit Plan Assess BROWN. Gait training with SPC on level and uneven ground, HEP: ankle DF stretch & ankle PF/EV strengthening. Assess and issue HEP for limited hip mobility. HEP: Ankle (PF & IV)/knee/hip strengthening. HEP: Ankle DF ROM and hip ROM Balance training & HEP
--- NOTE | 2022-01-01 17:04 | PT.OTN ---
Current Diagnoses Muscle weakness (generalized) (01/01/22) Other abnormalities of gait and mobility (01/01/22) Unspecified fall, initial encounter (01/01/22) Activity, other involving muscle strengthening exercises (01/01/22) Physical Therapy Treatment Note PT-OP-A Visit Information Start: 12/21/21 18:19 Freq: Status: Active Protocol: Document 01/01/22 12:36 LRN (Rec: 01/01/22 13:49 LRN [id number]) Out-Patient Physical Therapy Visit Information Visit Information Visit Type Treatment Note Visit Start Time 13:04 Visit Stop Time 13:44 Total Visit Minutes 40 Visit Number 3 Evaluation Information Evaluation Date 12/25/21 Precautions Precautions Bilateral mastectomy - 2 yrs ago and had a small prosthesis added, and still taking cancer medication but no signs of cancer currently, uncontrolled blood pressure. PT-OP-B Current Condition Start: 12/21/21 18:19 Freq: Status: Active Protocol: Document 12/25/21 11:20 LRN (Rec: 12/25/21 12:37 LRN [id number]) Current Condition History of Current Condition Onset Date 4 months ago dizziness Current Complaints Weakness of the legs, fear of falling downstairs, sometimes balance problem History of Current Condition 3 months ago when waking the room was swimming. Dizziness went away and just the past 2 weeks ago it started again. Pt also notes after bending over (one event) to pick something up she had an episode of [facility] room spinning. She has not had any other experiences since that time. Last summer her kids noticed she was starting to hold onto things. She was not able to go down stairs without hanging onto the house. States she needed to hang onto something going down stairs due to weakness of the legs and fear of falling down the stairs. She denies fear of falling while walking around the house . Fell last week trying to kick her L shoe off her feet and fell onto the floor. States she will now sit on her bed to remove her shoes. Tries to be careful walking on uneven ground. Prior Treatments and Tests None Treatment Goals Patient/Caregiver Goals Pt is not sure of the goal. States her physician felt she needed therapy due to her need of grabbing railings, and her recent fall trying to kick her shoes off. Prior Functional Status Baseline Function- ADL's Independent Baseline Function- Mobility Independent Baseline Function- Recreation/Hobbies Able to clean house and garden without difficulty. Current Functional Impairments (Reported) Functional Limitations- ADL's Keeps house and gardens, no problems with these activities . Functional Limitations- Mobility/Gait Ambulates with lean to the right. Personal Factors Other Personal Factors That May Effect Active with gardening, Therapy/Recovery mastectomy in 06/2019 resulting from having large breasts to small implanted breasts. PT-OP-C Subjective Start: 12/21/21 18:19 Freq: Status: Active Protocol: Document 01/01/22 12:36 LRN (Rec: 01/01/22 13:49 LRN [id number]) OP-PT Subjective Patient Comments Patient Comments Didn't do ex's 2x/day but did do them even though she spent the weekend with friends. PT-OP-D Balance Start: 12/21/21 18:19 Freq: Status: Active Protocol: Document 01/01/22 12:36 LRN (Rec: 01/01/22 13:49 LRN [id number]) Brown Balance Assessment Evaluation Sitting to Standing Ability Independent w/out Hands Sitting Unsupported, Feet on Floor Safely- 2 minutes Standing to Sitting Ability Safely, Minimal Hand Use Transfer Ability Safely, Minimal Hand Use Unsupported Stance- Eyes Closed Safely, 10 seconds Unsupported Stance- Eyes Open Independent, 1 minute Reaching Forward Standing Confidently, 10 inches Pick- Up Object From Floor Independent/Safe Look Behind Shoulder - Standing Shifts Weight Well Turning 360 Degrees Turns slowly, but safely Unsupported Stance, Alternating Feet on (I)- 8 Steps in 20 secs Stair Unsupported Tandem Stance Balance Lost- Step/Stand Unilateral Leg Stance Lifts Leg/Unable to Hold Total Score Brown Total Score (out of 56 points) 43 Brown Impairment Rating 20 to 39% Impaired (Score 34- 44) PT-OP-E Functional Tests Start: 12/21/21 18:19 Freq: Status: Active Protocol: Document 12/27/21 14:38 LRN (Rec: 12/27/21 15:22 LRN [id number]) Functional Tests Dynamic Gait Index (DGI) Score 21 DGI Impairment Rating 1 to <20% Impaired (Score 20- 23) PT-OP-G Mobility & Gait Start: 12/21/21 18:19 Freq: Status: Active Protocol: Document 12/27/21 14:38 LRN (Rec: 12/27/21 15:22 LRN [id number]) Stair Climbing Evaluation Evaluation Level of Assist On Stairs Independent Devices Stair Climbing Assistive Devices Left Railing,Right Railing Technique/Endurance Stair Climbing Direction Ascend and Descend Stair Climbing Technique Step Over Step Number of Steps Climbed 4 Stair Climbing Set # Repetitions (reps) 1 Comments Stair Climbing Comments Able to go Up stairs with R railing and downstairs with R railing. Pt jumps up when leading with RLE, moderately uncontrolled when going down leading with LLE and she rotates to the R. PT-OP-J Posture/Palpation/Skin Start: 12/21/21 18:19 Freq: Status: Active Protocol: Document 12/25/21 11:20 LRN (Rec: 12/25/21 12:37 LRN [id number]) Posture Evaluation Position Standing T-Spine Posture Flattened L-Spine Posture Increased Lordosis Shoulder Posture (L) Elevated Arm Posture (L) Internally Rotated,(R) Internally Rotated Hip Posture (L) Externally Rotated,(R) Externally Rotated PT-OP-K Range of Motion Start: 12/21/21 18:19 Freq: Status: Active Protocol: Document 12/25/21 11:20 LRN (Rec: 12/25/21 12:37 LRN [id number]) Ankle and Foot Goniometric Range of Motion Ankle and Foot Right Active Ankle/Foot ROM WFL No Testing Position Supine Dorsiflexion with Knee Extended 0 Eversion 10 Left Active Ankle/Foot ROM WFL No Testing Position Supine Dorsiflexion with Knee Extended 6 Eversion 28 PT-OP-M Strength Start: 12/21/21 18:19 Freq: Status: Active Protocol: Document 12/25/21 11:20 LRN (Rec: 12/25/21 12:37 LRN [id number]) Hand Audiovisual Technician/Pinch Strength Hand Dominance Hand Dominance Right Hip Strength Hip Manual Muscle Testing Right Comments Strength overall is 3/5. Left Adduction 5 Normal Comments Strength overall is 3/5 except as indicated above. Knee Strength Knee Manual Muscle Testing Right Flexion (S2) 3 Fair Extension (L3) 3 Fair Left Flexion (S2) 3 Fair Extension (L3) 5 Normal Ankle/Foot Strength Ankle and Foot Manual Muscle Testing Right Dorsiflexion (L4) 3 Fair Plantarflexion (S1) 4 Good Inversion 5 Normal Eversion (S1) 5 Normal Left Dorsiflexion (L4) 3 Fair Plantarflexion (S1) 4- Good- Inversion 5 Normal Eversion (S1) 5 Normal PT-OP-Q Treatments Start: 12/21/21 18:19 Freq: Status: Active Protocol: Document 01/01/22 12:36 LRN (Rec: 01/01/22 13:49 LRN [id number]) Therapeutic Exercises Standing Exercises Gastroc stretch Standing Exercise Name Gastroc stretch Side bilateral Reps/Minutes 1' x 1 Comments Extra time to determine max stretch position. Gait Training Gait Activity Stairs Description Down stairs Device Used SPC/Railing Level of Assistance SBA Distance/Duration 3, 2 steps Treatment Focus safety with gait Gait on unlevel surface Description Gait on grass and incline Device Used SPC Level of Assistance CGA>SBA Surface Grass, incline Distance/Duration 4' Treatment Focus Safety with gait Comments Pt slow and cautious with gait . Gait with assist device Description Gait with SPC on R side Device Used SPC Level of Assistance SBA>CGA Surface Level Distance/Duration 5' Treatment Focus Safety with gait Comments Pt gait very slow and pt watching feet. Neuro Re-Education Treatment Balance Activities Standing feet apart Details Standing feet apart, hands across chest Reps/Duration 1+ minute Sit to Stand Details Sit to Stand Reps/Duration 1x 3 Feet together standing Details Feet together standing, hands across chest - EO & EC Reps/Duration 2x each Reaching forward Details Reaching forward Reps/Duration 2x Comments Fisted R hand and keeping hand level with shoulder Bending over to garbage pick up man objects Details Bending over to garbage pick up man objects Reps/Duration 2x SLS Details SLS Comments SLS: 1 sec R, 0 secs L. Unsupported Tandem Details ToeHeel Comments R foot behind 3 secs once positioned. pt needed help getting into position. L foot behind 0 secs once positioned. pt needed help getting into position. Standing reach Details R arm reach 13.5 Reps/Duration x2 Comments 13.5 & 12 Step up taps Details step taps on 6 step Comments 12 secs to do 8 step taps Stand and turn Details Stand looking behind and 360 deg turns Comments 360 deg turns: 5 secs to Left 4 secs to Right Self-Care/Home Management Treatment Education Patient Education Home Exercise Program Activities Self-Care/Home Management Activities Issued & reviewed HEP: Gastrocnemius & Soleus stretch. PT-OP-T Assessment and Plan Start: 12/21/21 18:19 Freq: Status: Active Protocol: Document 01/01/22 12:36 LRN (Rec: 01/01/22 13:49 LRN [id number]) Physical Therapy Assessment Goals Four Impairment Decreased balance with increased risk of falling Impairment SLS is 0 secs RLE, 1 sec LLE. TUG score is 17 secs (60<80% impaired, score 16-17) Short Term Goal (STG) Pt will be able to SLS no less than 5 secs bilaterally and TUG score 14-15 secs (50<60% impared). STG Duration 02/07/22 Cnc Mill Set Up Operator Goal (LTG) Improve TUG 12 secs or less ( 20<40% impaired score 12-13 secs; 1<20% impaired, score 11 ) LTG Duration 03/25/22 Three Impairment Gait disturbance Impairment 01/01/22: BROWN score 43 (20-39 % impaired) Short Term Goal (STG) Pt will demonstrate appropriate use of an assistive device outside the home on unlevel surface (cane) with gait. (01/01/22: Gait training with SPC) STG Duration 01/11/22 (01/01/22: Progressing ) Cnc Mill Set Up Operator Goal (LTG) Ability to walk on uneven surface (yard/garden) without fear of falling with a cane. (01/01/22: Gait training with SPC) LTG Duration 03/25/22 (01/01/22: Progressing) Two Impairment LE weaknesss Short Term Goal (STG) Able to sit to medical insurance claims processor a contolled manner without use of arms and equal WBing through the legs. STG Duration 01/25/22 Snf Goal (LTG) Increase hip AB/flex/Ext; knee gayle knee flex & R knee ext, & ankle strength 1 grade (4/5). LTG Duration 03/25/22 One Impairment Lacks appropriate self care HEP Snf Goal (LTG) Pt will be independent with a self care HEP. (12/27/21: HEP: Ankle DF in sit & stand and sitting ankle EV strengthening) (01/01/22: HEP: Gastroc & Soleus Stretch) LTG Duration 03/25/22 (01/01/22: Progressed) Progress Towards Goals Progress Comments Progressed HEP of gastroc/ soleus stretch and gait training. Assessment Summary Assessment Pt able to walk on grass with use of SPC after training on solid level surface with SBA> CGA. The pt is slow and cautious on grass and needs further training with a cane. The pt is unsteady with stair ambulation with SPC without railing. BROWN score or 43 indicates 20-39% impaired and indicates she is safe to ambulate with an assistive device; therefore use of a cane would be appropriate for safe ambulation. Physical Therapy Plan Frequency and Duration Frequency of Treatment 2x/Week Plan of Care Start Date 12/25/21 Plan of Care End Date 03/25/22 Next Visit Focus/Plan Next Note Type Treatment Note Next Visit Plan Cont Gait training with SPC on level and uneven ground, HEP: ankle DF stretch & ankle PF/EV strengthening. Assess and issue HEP for limited hip mobility. HEP: Ankle (PF & IV)/knee/hip strengthening. HEP: Ankle DF ROM and hip ROM Balance training & HEP
--- NOTE | 2022-01-03 14:33 | PT.OTN ---
Current Diagnoses Muscle weakness (generalized) (01/03/22) Other abnormalities of gait and mobility (01/03/22) Unspecified fall, initial encounter (01/03/22) Activity, other involving muscle strengthening exercises (01/03/22) Physical Therapy Treatment Note PT-OP-A Visit Information Start: 12/21/21 18:19 Freq: Status: Active Protocol: Document 01/03/22 13:48 SP (Rec: 01/03/22 14:35 SP [id number]) Out-Patient Physical Therapy Visit Information Visit Information Visit Type Treatment Note Visit Start Time 13:48 Visit Stop Time 14:33 Total Visit Minutes 45 Visit Number 4 Number of BEET FLUMER Visits 1 Evaluation Information Evaluation Date 12/25/21 Precautions Precautions Bilateral mastectomy - 2 yrs ago and had a small prosthesis added, and still taking cancer medication but no signs of cancer currently, uncontrolled blood pressure. PT-OP-B Current Condition Start: 12/21/21 18:19 Freq: Status: Active Protocol: Document 12/25/21 11:20 LRN (Rec: 12/25/21 12:37 LRN [id number]) Current Condition History of Current Condition Onset Date 4 months ago dizziness Current Complaints Weakness of the legs, fear of falling downstairs, sometimes balance problem History of Current Condition 3 months ago when waking the room was swimming. Dizziness went away and just the past 2 weeks ago it started again. Pt also notes after bending over (one event) to pick something up she had an episode of [facility] room spinning. She has not had any other experiences since that time. Last summer her kids noticed she was starting to hold onto things. She was not able to go down stairs without hanging onto the house. States she needed to hang onto something going down stairs due to weakness of the legs and fear of falling down the stairs. She denies fear of falling while walking around the house . Fell last week trying to kick her L shoe off her feet and fell onto the floor. States she will now sit on her bed to remove her shoes. Tries to be careful walking on uneven ground. Prior Treatments and Tests None Treatment Goals Patient/Caregiver Goals Pt is not sure of the goal. States her physician felt she needed therapy due to her need of grabbing railings, and her recent fall trying to kick her shoes off. Prior Functional Status Baseline Function- ADL's Independent Baseline Function- Mobility Independent Baseline Function- Recreation/Hobbies Able to clean house and garden without difficulty. Current Functional Impairments (Reported) Functional Limitations- ADL's Keeps house and gardens, no problems with these activities . Functional Limitations- Mobility/Gait Ambulates with lean to the right. Personal Factors Other Personal Factors That May Effect Active with gardening, Therapy/Recovery mastectomy in 06/2019 resulting from having large breasts to small implanted breasts. PT-OP-C Subjective Start: 12/21/21 18:19 Freq: Status: Active Protocol: Document 01/03/22 13:48 SP (Rec: 01/03/22 14:35 SP [id number]) OP-PT Subjective Patient Comments Patient Comments Pt reported doing well today, able get out and weed a wheel barrel full, mostly hands/ knees/ on L hip/ little bending over. Pt states doesn' t feel confident going down to 2nd deck level and out to garage with UE support not able to receiprocal step PT-OP-D Balance Start: 12/21/21 18:19 Freq: Status: Active Protocol: Document 01/01/22 12:36 LRN (Rec: 01/01/22 13:49 LRN [id number]) Brown Balance Assessment Evaluation Sitting to Standing Ability Independent w/out Hands Sitting Unsupported, Feet on Floor Safely- 2 minutes Standing to Sitting Ability Safely, Minimal Hand Use Transfer Ability Safely, Minimal Hand Use Unsupported Stance- Eyes Closed Safely, 10 seconds Unsupported Stance- Eyes Open Independent, 1 minute Reaching Forward Standing Confidently, 10 inches Pick- Up Object From Floor Independent/Safe Look Behind Shoulder - Standing Shifts Weight Well Turning 360 Degrees Turns slowly, but safely Unsupported Stance, Alternating Feet on (I)- 8 Steps in 20 secs Stair Unsupported Tandem Stance Balance Lost- Step/Stand Unilateral Leg Stance Lifts Leg/Unable to Hold Total Score Brown Total Score (out of 56 points) 43 Brown Impairment Rating 20 to 39% Impaired (Score 34- 44) PT-OP-E Functional Tests Start: 12/21/21 18:19 Freq: Status: Active Protocol: Document 12/27/21 14:38 LRN (Rec: 12/27/21 15:22 LRN [id number]) Functional Tests Dynamic Gait Index (DGI) Score 21 DGI Impairment Rating 1 to <20% Impaired (Score 20- 23) PT-OP-G Mobility & Gait Start: 12/21/21 18:19 Freq: Status: Active Protocol: Document 12/27/21 14:38 LRN (Rec: 12/27/21 15:22 LRN [id number]) Stair Climbing Evaluation Evaluation Level of Assist On Stairs Independent Devices Stair Climbing Assistive Devices Left Railing,Right Railing Technique/Endurance Stair Climbing Direction Ascend and Descend Stair Climbing Technique Step Over Step Number of Steps Climbed 4 Stair Climbing Set # Repetitions (reps) 1 Comments Stair Climbing Comments Able to go Up stairs with R railing and downstairs with R railing. Pt jumps up when leading with RLE, moderately uncontrolled when going down leading with LLE and she rotates to the R. PT-OP-J Posture/Palpation/Skin Start: 12/21/21 18:19 Freq: Status: Active Protocol: Document 12/25/21 11:20 LRN (Rec: 12/25/21 12:37 LRN [id number]) Posture Evaluation Position Standing T-Spine Posture Flattened L-Spine Posture Increased Lordosis Shoulder Posture (L) Elevated Arm Posture (L) Internally Rotated,(R) Internally Rotated Hip Posture (L) Externally Rotated,(R) Externally Rotated PT-OP-K Range of Motion Start: 12/21/21 18:19 Freq: Status: Active Protocol: Document 12/25/21 11:20 LRN (Rec: 12/25/21 12:37 LRN [id number]) Ankle and Foot Goniometric Range of Motion Ankle and Foot Right Active Ankle/Foot ROM WFL No Testing Position Supine Dorsiflexion with Knee Extended 0 Eversion 10 Left Active Ankle/Foot ROM WFL No Testing Position Supine Dorsiflexion with Knee Extended 6 Eversion 28 PT-OP-M Strength Start: 12/21/21 18:19 Freq: Status: Active Protocol: Document 12/25/21 11:20 LRN (Rec: 12/25/21 12:37 N [id number]) Hand Fractionation Supervisor/Pinch Strength Hand Dominance Hand Dominance Right Hip Strength Hip Manual Muscle Testing Right Comments Strength overall is 3/5. Left Adduction 5 Normal Comments Strength overall is 3/5 except as indicated above. Knee Strength Knee Manual Muscle Testing Right Flexion (S2) 3 Fair Extension (L3) 3 Fair Left Flexion (S2) 3 Fair Extension (L3) 5 Normal Ankle/Foot Strength Ankle and Foot Manual Muscle Testing Right Dorsiflexion (L4) 3 Fair Plantarflexion (S1) 4 Good Inversion 5 Normal Eversion (S1) 5 Normal Left Dorsiflexion (L4) 3 Fair Plantarflexion (S1) 4- Good- Inversion 5 Normal Eversion (S1) 5 Normal PT-OP-Q Treatments Start: 12/21/21 18:19 Freq: Status: Active Protocol: Document 01/03/22 13:48 SP (Rec: 01/03/22 14:35 SP [id number]) Cardio Equipment Recumbent Elliptical (Biodex) Duration (Minutes) 6 Resistance 3 Seat Position 8 Other LEs only 40 RPM Therapeutic Exercises Sitting Exercises Ankle EV Sitting Exercise Name Active Ankle EV Side bilateral Resistance added TB #2 Equipment Used good spacing between knees Reps/Minutes x10 Comments Cuing needed to keep from hip IRing Ankle DF Sitting Exercise Name Active ankle PF, DF Side bilateral Resistance added TB #2 Equipment Used good spacing between knees Reps/Minutes x10 each Comments cued slow eccentric control Standing Exercises band walk Standing Exercise Name in PT only Side bilateral Resistance TB #2 loop Equipment Used //bars light contact Reps/Minutes x4 laps Comments cued tall posture/quad/glut fac over stance LE, decr hip depression Gastroc stretch Standing Exercise Name Gastroc stretch Side bilateral Comments discussed and performing, review next tx Step ups/downs Standing Exercise Name taps> step up/down 6 step Side bilateral Resistance AROM (add 2# leg wt next tx) Equipment Used 1 railing Reps/Minutes 10x each side Comments SBA, cued tall posture stability Neuro Re-Education Treatment Balance Activities Step up taps Details step taps on 6 step Surface firm Equipment initial 4 reps light contact 1 //bar Reps/Duration x8 reps Comments not timed Self-Care/Home Management Treatment Education Patient Education Home Exercise Program Other Education Added STS, ankle TB: DF/PF/EV, hip abd seated TB. Some time spent on mechanics on/off ground and kneeling for safety . PT-OP-T Assessment and Plan Start: 12/21/21 18:19 Freq: Status: Active Protocol: Document 01/03/22 13:48 SP (Rec: 01/03/22 14:35 SP [id number]) Physical Therapy Assessment Goals Four Impairment Decreased balance with increased risk of falling Impairment SLS is 0 secs RLE, 1 sec LLE. TUG score is 17 secs (60<80% impaired, score 16-17) Short Term Goal (STG) Pt will be able to SLS no less than 5 secs bilaterally and TUG score 14-15 secs (50<60% impared). STG Duration 02/07/22 Zoology Professor Goal (LTG) Improve TUG 12 secs or less ( 20<40% impaired score 12-13 secs; 1<20% impaired, score 11 ) 01/03/22: STS 1UE support 5 reps in 21sec, TU sec L UE to ascend chair, no UE descend slight plop in chair last 1. LTG Duration 03/25/22 01/03/22: progressing. Three Impairment Gait disturbance Impairment 01/01/22: BROWN score 43 (20-39 % impaired) Short Term Goal (STG) Pt will demonstrate appropriate use of an assistive device outside the home on unlevel surface (cane) with gait. (01/01/22: Gait training with SPC) STG Duration 01/11/22 (01/01/22: Progressing ) Zoology Professor Goal (LTG) Ability to walk on uneven surface (yard/garden) without fear of falling with a cane. (01/01/22: Gait training with SPC) LTG Duration 03/25/22 (01/01/22: Progressing) Two Impairment LE weaknesss Short Term Goal (STG) Able to sit to pin chaser a contolled manner without use of arms and equal WBing through the legs. STG Duration 01/25/22 Usp Goal (LTG) Increase hip AB/flex/Ext; knee gayle knee flex & R knee ext, & ankle strength 1 grade (4/5). LTG Duration 03/25/22 One Impairment Lacks appropriate self care HEP Zoology Professor Goal (LTG) Pt will be independent with a self care HEP. (12/27/21: HEP: Ankle DF in sit & stand and sitting ankle EV strengthening) (01/01/22: HEP: Gastroc & Soleus Stretch) 01/03/22: seated hip abd and ankle EV/PF/DF TB strengthening. LTG Duration 03/25/22 (01/03/22: Progressed) Assessment Summary Assessment Pt responded well to STS and TUG testing, added STS 1 UE support required for success, resisted hip abd sitting with improvement in carryover understanding with further education on posture and mechanics while side stepping improved lessening SB compensation L hip abd weakness. Physical Therapy Plan Frequency and Duration Frequency of Treatment 2x/Week Plan of Care Start Date 12/25/21 Plan of Care End Date 03/25/22 Therapeutic Interventions Therapeutic Interventions Aquatic Therapy,Gait Training, Home Exercise Program,Manual Therapy,Neuromuscular Re- education,Patient/Caregiver Education,Self-Care/Home Management,Therapeutic Activities,Therapeutic Exercises Modalities Cold Pack/Ice Massage,Hot Packs Next Visit Focus/Plan Next Note Type Treatment Note Next Visit Plan Cont Gait training with SPC/ trekpole on level and uneven ground, jamie stepping. Assess on/off floor. Recheck HEP: calf stretch, hip abd, step ups add #. Assess and issue HEP for limited hip mobility. HEP: Ankle (PF & IV)/knee/hip strengthening. HEP: Ankle DF ROM and hip ROM Balance training & HEP
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
--- NOTE | 2022-01-11 12:21 | PT.OTN ---
Current Diagnoses Muscle weakness (generalized) (01/11/22) Other abnormalities of gait and mobility (01/11/22) Unspecified fall, initial encounter (01/11/22) Activity, other involving muscle strengthening exercises (01/11/22) Physical Therapy Treatment Note PT-OP-A Visit Information Start: 12/21/21 18:19 Freq: Status: Active Protocol: Document 01/11/22 11:17 LRN (Rec: 01/11/22 12:18 LRN [id number]) Out-Patient Physical Therapy Visit Information Visit Information Visit Type Treatment Note Visit Start Time 11:17 Visit Stop Time 12:00 Total Visit Minutes 43 Visit Number 6 Evaluation Information Evaluation Date 12/25/21 Precautions Precautions Bilateral mastectomy - 2 yrs ago and had a small prosthesis added, and still taking cancer medication but no signs of cancer currently, uncontrolled blood pressure. PT-OP-B Current Condition Start: 12/21/21 18:19 Freq: Status: Active Protocol: Document 12/25/21 11:20 LRN (Rec: 12/25/21 12:37 LRN [id number]) Current Condition History of Current Condition Onset Date 4 months ago dizziness Current Complaints Weakness of the legs, fear of falling downstairs, sometimes balance problem History of Current Condition 3 months ago when waking the room was swimming. Dizziness went away and just the past 2 weeks ago it started again. Pt also notes after bending over (one event) to pick something up she had an episode of [facility] room spinning. She has not had any other experiences since that time. Last summer her kids noticed she was starting to hold onto things. She was not able to go down stairs without hanging onto the house. States she needed to hang onto something going down stairs due to weakness of the legs and fear of falling down the stairs. She denies fear of falling while walking around the house . Fell last week trying to kick her L shoe off her feet and fell onto the floor. States she will now sit on her bed to remove her shoes. Tries to be careful walking on uneven ground. Prior Treatments and Tests None Treatment Goals Patient/Caregiver Goals Pt is not sure of the goal. States her physician felt she needed therapy due to her need of grabbing railings, and her recent fall trying to kick her shoes off. Prior Functional Status Baseline Function- ADL's Independent Baseline Function- Mobility Independent Baseline Function- Recreation/Hobbies Able to clean house and garden without difficulty. Current Functional Impairments (Reported) Functional Limitations- ADL's Keeps house and gardens, no problems with these activities . Functional Limitations- Mobility/Gait Ambulates with lean to the right. Personal Factors Other Personal Factors That May Effect Active with gardening, Therapy/Recovery mastectomy in 06/2019 resulting from having large breasts to small implanted breasts. PT-OP-C Subjective Start: 12/21/21 18:19 Freq: Status: Active Protocol: Document 01/11/22 11:17 LRN (Rec: 01/11/22 12:18 LRN [id number]) OP-PT Subjective Patient Comments Patient Comments No changes in physical condition. Spouse was in a terrible MVA last (8 days ago). PT-OP-D Balance Start: 12/21/21 18:19 Freq: Status: Active Protocol: Document 01/01/22 12:36 LRN (Rec: 01/01/22 13:49 LRN [id number]) Brown Balance Assessment Evaluation Sitting to Standing Ability Independent w/out Hands Sitting Unsupported, Feet on Floor Safely- 2 minutes Standing to Sitting Ability Safely, Minimal Hand Use Transfer Ability Safely, Minimal Hand Use Unsupported Stance- Eyes Closed Safely, 10 seconds Unsupported Stance- Eyes Open Independent, 1 minute Reaching Forward Standing Confidently, 10 inches Pick- Up Object From Floor Independent/Safe Look Behind Shoulder - Standing Shifts Weight Well Turning 360 Degrees Turns slowly, but safely Unsupported Stance, Alternating Feet on (I)- 8 Steps in 20 secs Stair Unsupported Tandem Stance Balance Lost- Step/Stand Unilateral Leg Stance Lifts Leg/Unable to Hold Total Score Brown Total Score (out of 56 points) 43 Brown Impairment Rating 20 to 39% Impaired (Score 34- 44) PT-OP-E Functional Tests Start: 12/21/21 18:19 Freq: Status: Active Protocol: Document 01/09/22 10:37 SP (Rec: 01/09/22 12:19 SP [id number]) Functional Tests Other BROWN Name of Test BROWN Score 46/56 Comment decrease SLS time, see scanned form completed. PT-OP-G Mobility & Gait Start: 12/21/21 18:19 Freq: Status: Active Protocol: Document 12/27/21 14:38 LRN (Rec: 12/27/21 15:22 LRN [id number]) Stair Climbing Evaluation Evaluation Level of Assist On Stairs Independent Devices Stair Climbing Assistive Devices Left Railing,Right Railing Technique/Endurance Stair Climbing Direction Ascend and Descend Stair Climbing Technique Step Over Step Number of Steps Climbed 4 Stair Climbing Set # Repetitions (reps) 1 Comments Stair Climbing Comments Able to go Up stairs with R railing and downstairs with R railing. Pt jumps up when leading with RLE, moderately uncontrolled when going down leading with LLE and she rotates to the R. PT-OP-J Posture/Palpation/Skin Start: 12/21/21 18:19 Freq: Status: Active Protocol: Document 12/25/21 11:20 LRN (Rec: 12/25/21 12:37 LRN [id number]) Posture Evaluation Position Standing T-Spine Posture Flattened L-Spine Posture Increased Lordosis Shoulder Posture (L) Elevated Arm Posture (L) Internally Rotated,(R) Internally Rotated Hip Posture (L) Externally Rotated,(R) Externally Rotated PT-OP-K Range of Motion Start: 12/21/21 18:19 Freq: Status: Active Protocol: Document 12/25/21 11:20 LRN (Rec: 12/25/21 12:37 LRN [id number]) Ankle and Foot Goniometric Range of Motion Ankle and Foot Right Active Ankle/Foot ROM WFL No Testing Position Supine Dorsiflexion with Knee Extended 0 Eversion 10 Left Active Ankle/Foot ROM WFL No Testing Position Supine Dorsiflexion with Knee Extended 6 Eversion 28 PT-OP-M Strength Start: 12/21/21 18:19 Freq: Status: Active Protocol: Document 12/25/21 11:20 LRN (Rec: 12/25/21 12:37 LRN [id number]) Hand Nurse Examiner/Pinch Strength Hand Dominance Hand Dominance Right Hip Strength Hip Manual Muscle Testing Right Comments Strength overall is 3/5. Left Adduction 5 Normal Comments Strength overall is 3/5 except as indicated above. Knee Strength Knee Manual Muscle Testing Right Flexion (S2) 3 Fair Extension (L3) 3 Fair Left Flexion (S2) 3 Fair Extension (L3) 5 Normal Ankle/Foot Strength Ankle and Foot Manual Muscle Testing Right Dorsiflexion (L4) 3 Fair Plantarflexion (S1) 4 Good Inversion 5 Normal Eversion (S1) 5 Normal Left Dorsiflexion (L4) 3 Fair Plantarflexion (S1) 4- Good- Inversion 5 Normal Eversion (S1) 5 Normal PT-OP-Q Treatments Start: 12/21/21 18:19 Freq: Status: Active Protocol: Document 01/11/22 11:17 LRN (Rec: 01/11/22 12:18 LRN [id number]) Therapeutic Exercises Supine Exercises 2 legged hip AB Supine Exercise Name Hip AB Side bilateral 1 legged hip AB Supine Exercise Name hip AB; Left, then Right Reps/Minutes 10x Comments Cuing to lead with heel Sidelying Exercises Clamshell Sidelying Exercise Name Clamshell Side bilateral Reps/Minutes 10x each Comments Extra time for training w/ ssist to lift top knee Hip AB Sidelying Exercise Name Hip AB Side bilateral Reps/Minutes 10x each Comments Cuing on L side to keep core stable and prevent hip hike Sitting Exercises Ankle EV Sitting Exercise Name Active Ankle EV- not performed doing at home Side bilateral Resistance TB #2 Equipment Used good spacing between knees Reps/Minutes 15x 2 Comments Cuing needed to keep from hip IRing Ankle DF Sitting Exercise Name Active ankle PF, DF-not performed but doing at home Side bilateral Resistance TB #2 Equipment Used good spacing between knees Reps/Minutes 15x 2 each Comments cued for mvmt at ankle, slow eccentric control Standing Exercises Hip AB Standing Exercise Name Hip AB Side bilateral Reps/Minutes 10x 2 Comments Extra time for:Cuing to prevent hip hike and keeping lifting knee straight. band walk Standing Exercise Name in PT only- review next tx Side bilateral Resistance TB #2 loop Equipment Used //bars light contact Reps/Minutes x3 laps up and back Comments cued tall posture/quad/glut fac over stance LE, decr hip depression Ankle DF Standing Exercise Name Active ankle DF Side bilateral Equipment Used rail PRN Reps/Minutes x10 Comments Cuing for mvmt at ankle only Gastroc stretch Standing Exercise Name Gastroc stretch Side bilateral Reps/Minutes 60 minimal stretch bilaterally Comments reviewed as HEP Different hgt step ups Standing Exercise Name 6 4 , 2 step ups and down with R leg Equipment Used // bars Reps/Minutes 10x each leg and each side at each level Step ups/downs Standing Exercise Name taps> step up/down outside curb Side bilateral Resistance AROM (add 2# leg wt next tx) Equipment Used CGA at GB 6 curb Reps/Minutes 10x each side Comments CGA, cued tall posture stability, decrease stand time on RLE uses momentum Self-Care/Home Management Treatment Education Patient Education Home Exercise Program Activities Self-Care/Home Management Activities Issued & reviewed HEP: supine , sidelye and standing hip AB strengthening exercises. PT-OP-T Assessment and Plan Start: 12/21/21 18:19 Freq: Status: Active Protocol: Document 01/11/22 11:17 LRN (Rec: 01/11/22 12:18 LRN [id number]) Physical Therapy Assessment Goals Four Impairment Decreased balance with increased risk of falling Impairment SLS is 0 secs RLE, 1 sec LLE. TUG score is 17 secs (60<80% impaired, score 16-17) Short Term Goal (STG) Pt will be able to SLS no less than 5 secs bilaterally and TUG score 14-15 secs (50<60% impared). 01/09/22: progressing SLS 1-3 sec R and LLE; MET: TUs, 9s. STG Duration 02/07/22 [facility] Goal (LTG) Improve TUG 12 secs or less ( 20<40% impaired score 12-13 secs; 1<20% impaired, score 11 ) 01/03/22: STS 1UE support 5 reps in 21sec, TU sec L UE to ascend chair, no UE descend slight plop in chair last 1. 01/09/22: GOAL MET: TUG 10s, 9s. LTG Duration 03/25/22 01/09/22: GOAL MET Three Impairment Gait disturbance Impairment 01/01/22: BROWN score 43 (20-39 % impaired) 01/09/22: BROWN 46/56 Short Term Goal (STG) Pt will demonstrate appropriate use of an assistive device outside the home on unlevel surface (cane) with gait. (01/01/22: Gait training with SPC) 01/09/22: GOAL MET: able to walk on uneven incline/decline grass using trek pole appropriate in RUE patterning with LLE, decrease stance time on LLE noted but safe/ stable . STG Duration 01/11/22 (01/09/22: GOAL MET) Sales And Management Trainee Goal (LTG) Ability to walk on uneven surface (yard/garden) without fear of falling with a cane. (01/01/22: Gait training with SPC) 01/09/22: GOAL MET: able to walk out on lawn using wheelbarrel or gardening bag in 1 had and trek pole in other over the weekend without fear of falling. 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 01/09/22: PRogressing: needs to use 1 UE 30% effort to come to stand. STG Duration 01/25/22 (progressing 01/09/22) [facility] Goal (LTG) Increase hip AB/flex/Ext; knee gayle knee flex & R knee ext, & ankle strength 1 grade (4/5). LTG Duration 03/25/22 One Impairment Lacks appropriate self care HEP Sales And Management Trainee Goal (LTG) Pt will be independent with a self care HEP. (12/27/21: HEP: Ankle DF in sit & stand and sitting ankle EV strengthening) (01/01/22: HEP: Gastroc & Soleus Stretch) 01/03/22: seated hip abd and ankle EV/PF/DF TB strengthening. (01/11/22: Added HEP: Hip AB in sup, sidelie & standing). LTG Duration 03/25/22 (01/03/22: Progressed) Progress Towards Goals Progress Comments HEP progressed Assessment Summary Assessment HEP of calf stretch, hip abd, step ups. Pt did not have handouts for hip AB; therefore issued for progression of sup >sidelie>standing with pt progressing once she is able to do 10x3 reps leading with the heel. Pt has difficulty at this time with decreased active mobility leading with the heel. Pt hasn't done outside walking on uneven surface with SPC due to inclement weather. Physical Therapy Plan Frequency and Duration Frequency of Treatment 2x/Week Plan of Care Start Date 12/25/21 Plan of Care End Date 03/25/22 Next Visit Focus/Plan Next Note Type Treatment Note Next Visit Plan Recheck issued HEP of progressive hip AB strengthening in supine (if pt has progressed). Cont Gait training with SPC/ trekpole on level and uneven ground, jamie stepping. Assess on/off floor. Assess and issue HEP for limited hip mobility. HEP: Ankle (PF & IV)/knee/hip ext strengthening. HEP: Hip ROM Balance training & HEP
--- NOTE | 2022-01-17 13:00 | PT.OTN ---
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 PT-OP-B Current Condition Start: 12/21/21 18:19 Freq: Status: Active Protocol: Document 12/25/21 11:20 LRN (Rec: 12/25/21 12:37 LRN [id number]) Current Condition History of Current Condition Onset Date 4 months ago dizziness Current Complaints Weakness of the legs, fear of falling downstairs, sometimes balance problem History of Current Condition 3 months ago when waking the room was swimming. Dizziness went away and just the past 2 weeks ago it started again. Pt also notes after bending over (one event) to pick something up she had an episode of [facility] room spinning. She has not had any other experiences since that time. Last summer her kids noticed she was starting to hold onto things. She was not able to go down stairs without hanging onto the house. States she needed to hang onto something going down stairs due to weakness of the legs and fear of falling down the stairs. She denies fear of falling while walking around the house . Fell last week trying to kick her L shoe off her feet and fell onto the floor. States she will now sit on her bed to remove her shoes. Tries to be careful walking on uneven ground. Prior Treatments and Tests None Treatment Goals Patient/Caregiver Goals Pt is not sure of the goal. States her physician felt she needed therapy due to her need of grabbing railings, and her recent fall trying to kick her shoes off. Prior Functional Status Baseline Function- ADL's Independent Baseline Function- Mobility Independent Baseline Function- Recreation/Hobbies Able to clean house and garden without difficulty. Current Functional Impairments (Reported) Functional Limitations- ADL's Keeps house and gardens, no problems with these activities . Functional Limitations- Mobility/Gait Ambulates with lean to the right. Personal Factors Other Personal Factors That May Effect Active with gardening, Therapy/Recovery mastectomy in 06/2019 resulting from having large breasts to small implanted breasts. PT-OP-C Subjective Start: 12/21/21 18:19 Freq: Status: Active Protocol: Document 01/17/22 12:18 SP (Rec: 01/17/22 13:03 SP [id number]) OP-PT Subjective Patient Comments Patient Comments Pt reports gluts and across sore, did alot gardening lately into squat, lifting heavy buckets, pushing wheelbarrow. Is compliant with HEP, notices shocking in calf when doing lunge stretch but when hold goes away in seconds but also states does a quick stretch seen by runners on [place] [place] but maybe needs to modify. PT-OP-D Balance Start: 12/21/21 18:19 Freq: Status: Active Protocol: Document 01/01/22 12:36 LRN (Rec: 01/01/22 13:49 LRN [id number]) Brown Balance Assessment Evaluation Sitting to Standing Ability Independent w/out Hands Sitting Unsupported, Feet on Floor Safely- 2 minutes Standing to Sitting Ability Safely, Minimal Hand Use Transfer Ability Safely, Minimal Hand Use Unsupported Stance- Eyes Closed Safely, 10 seconds Unsupported Stance- Eyes Open Independent, 1 minute Reaching Forward Standing Confidently, 10 inches Pick- Up Object From Floor Independent/Safe Look Behind Shoulder - Standing Shifts Weight Well Turning 360 Degrees Turns slowly, but safely Unsupported Stance, Alternating Feet on (I)- 8 Steps in 20 secs Stair Unsupported Tandem Stance Balance Lost- Step/Stand Unilateral Leg Stance Lifts Leg/Unable to Hold Total Score Brown Total Score (out of 56 points) 43 Brown Impairment Rating 20 to 39% Impaired (Score 34- 44) PT-OP-E Functional Tests Start: 12/21/21 18:19 Freq: Status: Active Protocol: Document 01/09/22 10:37 SP (Rec: 01/09/22 12:19 SP [id number]) Functional Tests Other BROWN Name of Test BROWN Score 46/56 Comment decrease SLS time, see scanned form completed. PT-OP-G Mobility & Gait Start: 12/21/21 18:19 Freq: Status: Active Protocol: Document 12/27/21 14:38 LRN (Rec: 12/27/21 15:22 LRN [id number]) Stair Climbing Evaluation Evaluation Level of Assist On Stairs Independent Devices Stair Climbing Assistive Devices Left Railing,Right Railing Technique/Endurance Stair Climbing Direction Ascend and Descend Stair Climbing Technique Step Over Step Number of Steps Climbed 4 Stair Climbing Set # Repetitions (reps) 1 Comments Stair Climbing Comments Able to go Up stairs with R railing and downstairs with R railing. Pt jumps up when leading with RLE, moderately uncontrolled when going down leading with LLE and she rotates to the R. PT-OP-J Posture/Palpation/Skin Start: 12/21/21 18:19 Freq: Status: Active Protocol: Document 12/25/21 11:20 LRN (Rec: 12/25/21 12:37 LRN [id number]) Posture Evaluation Position Standing T-Spine Posture Flattened L-Spine Posture Increased Lordosis Shoulder Posture (L) Elevated Arm Posture (L) Internally Rotated,(R) Internally Rotated Hip Posture (L) Externally Rotated,(R) Externally Rotated PT-OP-K Range of Motion Start: 12/21/21 18:19 Freq: Status: Active Protocol: Document 12/25/21 11:20 LRN (Rec: 12/25/21 12:37 LRN [id number]) Ankle and Foot Goniometric Range of Motion Ankle and Foot Right Active Ankle/Foot ROM WFL No Testing Position Supine Dorsiflexion with Knee Extended 0 Eversion 10 Left Active Ankle/Foot ROM WFL No Testing Position Supine Dorsiflexion with Knee Extended 6 Eversion 28 PT-OP-M Strength Start: 12/21/21 18:19 Freq: Status: Active Protocol: Document 12/25/21 11:20 LRN (Rec: 12/25/21 12:37 LRN [id number]) Hand Vacuum Metalizing Supervisor/Pinch Strength Hand Dominance Hand Dominance Right Hip Strength Hip Manual Muscle Testing Right Comments Strength overall is 3/5. Left Adduction 5 Normal Comments Strength overall is 3/5 except as indicated above. Knee Strength Knee Manual Muscle Testing Right Flexion (S2) 3 Fair Extension (L3) 3 Fair Left Flexion (S2) 3 Fair Extension (L3) 5 Normal Ankle/Foot Strength Ankle and Foot Manual Muscle Testing Right Dorsiflexion (L4) 3 Fair Plantarflexion (S1) 4 Good Inversion 5 Normal Eversion (S1) 5 Normal Left Dorsiflexion (L4) 3 Fair Plantarflexion (S1) 4- Good- Inversion 5 Normal Eversion (S1) 5 Normal PT-OP-Q Treatments Start: 12/21/21 18:19 Freq: Status: Active Protocol: Document 01/17/22 12:18 SP (Rec: 01/17/22 13:03 SP [id number]) Therapeutic Exercises Supine Exercises 2 legged hip AB Supine Exercise Name Hip AB Side bilateral Reps/Minutes x10 Comments cued slower pacing and not as far, better form and TA no upper body recruit 1 legged hip AB Supine Exercise Name hip AB; Left, then Right Reps/Minutes 10x Comments Cuing to lead with heel (toe ceiling 12o'clock) Sidelying Exercises Clamshell Sidelying Exercise Name Clamshell Side bilateral Reps/Minutes 10x each Comments cued keep pelvis still then lift top knee Hip AB Sidelying Exercise Name Hip AB Side bilateral Reps/Minutes 10x each Comments Cuing on L side to keep stacked and hip isolate abd. Sitting Exercises self massage Sitting Exercise Name education self massage: quad, hs, add, calf, ITB Equipment Used rolling pin performance discussed racquetball wall as well hip/ LB if neede Comments good feedback Standing Exercises band walk Standing Exercise Name HEP Side bilateral Resistance TB #2 loop Equipment Used //bars light contact Reps/Minutes x3 laps up and back Comments cued tall posture/quad/glut fac over stance LE, decr hip depression Neuro Re-Education Treatment Balance Activities Sit to Stand Details Sit to Stand- HEP review Reps/Duration 5 reps in 27s, 5 reps in 14s little flop at sit Comments 10% 1 UE support on seat to come to stand, no UE descend, cued slow hip hinge complete to no flop last 1. Slow pacing and pauses full stand and sit. SLS Equipment rail, therapist Comments RLE 1-3s, LLE 1-2s PT-OP-T Assessment and Plan Start: 12/21/21 18:19 Freq: Status: Active Protocol: Document 01/17/22 12:18 SP (Rec: 01/17/22 13:03 SP [id number]) Physical Therapy Assessment Goals Four Impairment Decreased balance with increased risk of falling Impairment SLS is 0 secs RLE, 1 sec LLE. TUG score is 17 secs (60<80% impaired, score 16-17) Short Term Goal (STG) Pt will be able to SLS no less than 5 secs bilaterally and TUG score 14-15 secs (50<60% impared). 01/09/22: progressing SLS 1-3 sec R and LLE; MET: TUs, 9s. 01/17/22: RLE 1-3sec, LLE 1-2 sec. STG Duration 02/07/22 01/17/22: progressing [facility] Goal (LTG) Improve TUG 12 secs or less ( 20<40% impaired score 12-13 secs; 1<20% impaired, score 11 ) 01/03/22: STS 1UE support 5 reps in 21sec, TU sec L UE to ascend chair, no UE descend slight plop in chair last 1. 01/09/22: GOAL MET: TUG 10s, 9s. 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 01/09/22: PRogressing: needs to use 1 UE 30% effort to come to stand. 01/17/22: progressin% 1 UE support come to stand, no UE descend,cued slow hip hinge complete to no flop last 1. Slow pacing, pause full stand and sit, 5 reps in 27s. 14s, little flop at bottom sit. STG Duration 01/25/22 (progressing 01/17/22) [facility] Goal (LTG) Increase hip AB/flex/Ext; knee gayle knee flex & R knee ext, & ankle strength 1 grade (4/5). LTG Duration 03/25/22 One Impairment Lacks appropriate self care HEP [facility] Goal (LTG) Pt will be independent with a self care HEP. (12/27/21: HEP: Ankle DF in sit & stand and sitting ankle EV strengthening) (01/01/22: HEP: Gastroc & Soleus Stretch) 01/03/22: seated hip abd and ankle EV/PF/DF TB strengthening. (01/11/22: Added HEP: Hip AB in sup, sidelie & standing). LTG Duration 03/25/22 (01/03/22: Progressed) Assessment Summary Assessment Improved hip abd L>R LE end tx walking in mirror post ex. Still has L >R hip weakness but better understanding HEP election and self corrections. Able to improve mechanics with awareness. Physical Therapy Plan Frequency and Duration Frequency of Treatment 2x/Week Plan of Care Start Date 12/25/21 Plan of Care End Date 03/25/22 Therapeutic Interventions Therapeutic Interventions Aquatic Therapy,Gait Training, Home Exercise Program,Manual Therapy,Neuromuscular Re- education,Patient/Caregiver Education,Self-Care/Home Management,Therapeutic Activities,Therapeutic Exercises Modalities Cold Pack/Ice Massage,Hot Packs Next Visit Focus/Plan Next Note Type Treatment Note Next Visit Plan Improved supine/ side hip abd. POC: next tx: review band walk , gait in mirror then progress Gait training with SPC/ trekpole on level and uneven ground, jamie stepping. Assess on/off floor. Assess and issue HEP for limited hip mobility. HEP: Ankle (PF & IV)/knee/hip ext strengthening. HEP: Hip ROM Balance training & HEP
--- NOTE | 2022-01-23 15:18 | PT.OTN ---
Current Diagnoses Muscle weakness (generalized) (01/23/22) Other abnormalities of gait and mobility (01/23/22) Unspecified fall, initial encounter (01/23/22) Activity, other involving muscle strengthening exercises (01/23/22) Physical Therapy Treatment Note PT-OP-A Visit Information Start: 12/21/21 18:19 Freq: Status: Active Protocol: Document 01/23/22 14:28 SP (Rec: 01/23/22 15:45 SP [id number]) Out-Patient Physical Therapy Visit Information Visit Information Visit Type Treatment Note Visit Start Time 14:28 Visit Stop Time 15:18 Total Visit Minutes 50 Visit Number 8 Number of DEBT RECOVERY OFFICER Visits 2 Evaluation Information Evaluation Date 12/25/21 Precautions Precautions Bilateral mastectomy - 2 yrs ago and had a small prosthesis added, and still taking cancer medication but no signs of cancer currently, uncontrolled blood pressure. PT-OP-B Current Condition Start: 12/21/21 18:19 Freq: Status: Active Protocol: Document 12/25/21 11:20 LRN (Rec: 12/25/21 12:37 LRN [id number]) Current Condition History of Current Condition Onset Date 4 months ago dizziness Current Complaints Weakness of the legs, fear of falling downstairs, sometimes balance problem History of Current Condition 3 months ago when waking the room was swimming. Dizziness went away and just the past 2 weeks ago it started again. Pt also notes after bending over (one event) to pick something up she had an episode of [facility] room spinning. She has not had any other experiences since that time. Last summer her kids noticed she was starting to hold onto things. She was not able to go down stairs without hanging onto the house. States she needed to hang onto something going down stairs due to weakness of the legs and fear of falling down the stairs. She denies fear of falling while walking around the house . Fell last week trying to kick her L shoe off her feet and fell onto the floor. States she will now sit on her bed to remove her shoes. Tries to be careful walking on uneven ground. Prior Treatments and Tests None Treatment Goals Patient/Caregiver Goals Pt is not sure of the goal. States her physician felt she needed therapy due to her need of grabbing railings, and her recent fall trying to kick her shoes off. Prior Functional Status Baseline Function- ADL's Independent Baseline Function- Mobility Independent Baseline Function- Recreation/Hobbies Able to clean house and garden without difficulty. Current Functional Impairments (Reported) Functional Limitations- ADL's Keeps house and gardens, no problems with these activities . Functional Limitations- Mobility/Gait Ambulates with lean to the right. Personal Factors Other Personal Factors That May Effect Active with gardening, Therapy/Recovery mastectomy in 06/2019 resulting from having large breasts to small implanted breasts. PT-OP-C Subjective Start: 12/21/21 18:19 Freq: Status: Active Protocol: Document 01/23/22 14:28 SP (Rec: 01/23/22 15:45 SP [id number]) OP-PT Subjective Patient Comments Patient Comments Pt continues demonstrate antalgic gait with weakness in R hip abd. She stated is better about doing her exercises, encourages her. She was has been out walking pavement trail about 1 mile and able to complete 6 STS without UE support but needed little 1 hand for 7th. Patient Reported Progress Improving PT-OP-D Balance Start: 12/21/21 18:19 Freq: Status: Active Protocol: Document 01/01/22 12:36 LRN (Rec: 01/01/22 13:49 LRN [id number]) Brown Balance Assessment Evaluation Sitting to Standing Ability Independent w/out Hands Sitting Unsupported, Feet on Floor Safely- 2 minutes Standing to Sitting Ability Safely, Minimal Hand Use Transfer Ability Safely, Minimal Hand Use Unsupported Stance- Eyes Closed Safely, 10 seconds Unsupported Stance- Eyes Open Independent, 1 minute Reaching Forward Standing Confidently, 10 inches Pick- Up Object From Floor Independent/Safe Look Behind Shoulder - Standing Shifts Weight Well Turning 360 Degrees Turns slowly, but safely Unsupported Stance, Alternating Feet on (I)- 8 Steps in 20 secs Stair Unsupported Tandem Stance Balance Lost- Step/Stand Unilateral Leg Stance Lifts Leg/Unable to Hold Total Score Brown Total Score (out of 56 points) 43 Brown Impairment Rating 20 to 39% Impaired (Score 34- 44) PT-OP-E Functional Tests Start: 12/21/21 18:19 Freq: Status: Active Protocol: Document 01/09/22 10:37 SP (Rec: 01/09/22 12:19 SP [id number]) Functional Tests Other BROWN Name of Test BROWN Score 46/56 Comment decrease SLS time, see scanned form completed. PT-OP-G Mobility & Gait Start: 12/21/21 18:19 Freq: Status: Active Protocol: Document 12/27/21 14:38 LRN (Rec: 12/27/21 15:22 LRN [id number]) Stair Climbing Evaluation Evaluation Level of Assist On Stairs Independent Devices Stair Climbing Assistive Devices Left Railing,Right Railing Technique/Endurance Stair Climbing Direction Ascend and Descend Stair Climbing Technique Step Over Step Number of Steps Climbed 4 Stair Climbing Set # Repetitions (reps) 1 Comments Stair Climbing Comments Able to go Up stairs with R railing and downstairs with R railing. Pt jumps up when leading with RLE, moderately uncontrolled when going down leading with LLE and she rotates to the R. PT-OP-J Posture/Palpation/Skin Start: 12/21/21 18:19 Freq: Status: Active Protocol: Document 12/25/21 11:20 LRN (Rec: 12/25/21 12:37 LRN [id number]) Posture Evaluation Position Standing T-Spine Posture Flattened L-Spine Posture Increased Lordosis Shoulder Posture (L) Elevated Arm Posture (L) Internally Rotated,(R) Internally Rotated Hip Posture (L) Externally Rotated,(R) Externally Rotated PT-OP-K Range of Motion Start: 12/21/21 18:19 Freq: Status: Active Protocol: Document 12/25/21 11:20 LRN (Rec: 12/25/21 12:37 LRN [id number]) Ankle and Foot Goniometric Range of Motion Ankle and Foot Right Active Ankle/Foot ROM WFL No Testing Position Supine Dorsiflexion with Knee Extended 0 Eversion 10 Left Active Ankle/Foot ROM WFL No Testing Position Supine Dorsiflexion with Knee Extended 6 Eversion 28 PT-OP-M Strength Start: 12/21/21 18:19 Freq: Status: Active Protocol: Document 12/25/21 11:20 LRN (Rec: 12/25/21 12:37 LRN [id number]) Hand Telegraphic Typewriter Operator Chief/Pinch Strength Hand Dominance Hand Dominance Right Hip Strength Hip Manual Muscle Testing Right Comments Strength overall is 3/5. Left Adduction 5 Normal Comments Strength overall is 3/5 except as indicated above. Knee Strength Knee Manual Muscle Testing Right Flexion (S2) 3 Fair Extension (L3) 3 Fair Left Flexion (S2) 3 Fair Extension (L3) 5 Normal Ankle/Foot Strength Ankle and Foot Manual Muscle Testing Right Dorsiflexion (L4) 3 Fair Plantarflexion (S1) 4 Good Inversion 5 Normal Eversion (S1) 5 Normal Left Dorsiflexion (L4) 3 Fair Plantarflexion (S1) 4- Good- Inversion 5 Normal Eversion (S1) 5 Normal PT-OP-Q Treatments Start: 12/21/21 18:19 Freq: Status: Active Protocol: Document 01/23/22 14:28 SP (Rec: 01/23/22 15:45 SP [id number]) Gym Equipment Shuttle Recovery bilateral squat Details cued knees apart see B insoles Resistance 75# Reps/Time 2x15 Therapeutic Exercises Supine Exercises hip ER stretch Supine Exercise Name added to HEP Side right Reps/Minutes 30 Comments manual and self application 2 legged hip AB Supine Exercise Name Hip AB Side bilateral Reps/Minutes x10 Comments better form, TA and less no upper body recruit 1 legged hip AB Supine Exercise Name hip AB; Left, then Right Reps/Minutes 10x Comments Cuing to lead with heel (toe ceiling 12o'clock) Sidelying Exercises Clamshell Sidelying Exercise Name Clamshell Side bilateral Reps/Minutes 2x5 reps Comments incorporated with sustained pressure pirif this tx Sitting Exercises hip ER stretch Sitting Exercise Name R Resistance AAROM/ stretch Reps/Minutes 30 x2 Comments limited range, cued UE supported on L leg breath/ relax can apply ER gentle self massage Sitting Exercise Name reviewed self home: quad, hs, add, calf, ITB Equipment Used rolling pin performance discussed racquetball wall as well hip/ LB if neede Comments good feedback Standing Exercises self STMs w/ ball wall Standing Exercise Name added to HEP PRN: glut/ piriformis Reps/Minutes 30 s Comments stated little sore if give alot pressure- ed painfree massage band walk Standing Exercise Name HEP Side bilateral Resistance TB #2 loop ( RTB inPT) Equipment Used light contact rail RUE going R only Reps/Minutes x3 laps up and back Comments cued tall posture over LLE during RLE locomotion for level pelvis Step ups/downs Standing Exercise Name taps> step up/down outside curb Side bilateral Resistance AROM Equipment Used SBA 6 step, rail nearby no UE supported Reps/Minutes 10x each side Comments challenged R LE push little momentum, fine LE ease Gait Training Gait Activity Stairs Description Up/ Down stairs Device Used slow receiprocal stepping, Level of Assistance gym stairs Distance/Duration 4 stairs x2 sets Treatment Focus safety with gait Comments Railing PRN receiprocal, no rail needed to lead LLE, light contact rail on LUE during initial step lead RLE uses momentum. Manual Therapy Treatment Soft Tissue Mobilization R piriformis, glut med Body Location & R TFL Mobilization Type Myofascial Release,Strumming, Sustained Pressure Intensity/Depth Moderate Body Position Sidelying Comments manual and MWM during initiated clamself small range motion. Ed about self using racquetball on wall and rolling pin quad/ ADD/ HS/ calf. Self-Care/Home Management Treatment Education Patient Education Home Exercise Program Other Education Added step ups, R fig 4 stretch seated/ supine, self massage standing ball, rolling pin seated LE musculature. PT-OP-T Assessment and Plan Start: 12/21/21 18:19 Freq: Status: Active Protocol: Document 01/23/22 14:28 SP (Rec: 01/23/22 15:45 SP [id number]) Physical Therapy Assessment Goals Four Impairment Decreased balance with increased risk of falling Impairment SLS is 0 secs RLE, 1 sec LLE. TUG score is 17 secs (60<80% impaired, score 16-17) Short Term Goal (STG) Pt will be able to SLS no less than 5 secs bilaterally and TUG score 14-15 secs (50<60% impared). 01/09/22: progressing SLS 1-3 sec R and LLE; MET: TUs, 9s. 01/17/22: RLE 1-3sec, LLE 1-2 sec. STG Duration 02/07/22 01/17/22: progressing [facility] Goal (LTG) Improve TUG 12 secs or less ( 20<40% impaired score 12-13 secs; 1<20% impaired, score 11 ) 01/03/22: STS 1UE support 5 reps in 21sec, TU sec L UE to ascend chair, no UE descend slight plop in chair last 1. 01/09/22: GOAL MET: TUG 10s, 9s. LTG Duration 03/25/22 01/09/22: GOAL MET Two Impairment LE weaknesss Short Term Goal (STG) Able to sit to administration vice president a contolled manner without use of arms and equal WBing through the legs. 01/09/22: PRogressing: needs to use 1 UE 30% effort to come to stand. 01/17/22: progressin% 1 UE support come to stand, no UE descend,cued slow hip hinge complete to no flop last 1. Slow pacing, pause full stand and sit, 5 reps in 27s. 14s, little flop at bottom sit. 01/23/22: pt reports can perform 6 STS without UE support but needs 1 UE for 7th due to tiring. STG Duration 01/25/22 (progressing 01/23/22 ) Usp Goal (LTG) Increase hip AB/flex/Ext; knee gayle knee flex & R knee ext, & ankle strength 1 grade (4/5). LTG Duration 03/25/22 One Impairment Lacks appropriate self care HEP Usp Goal (LTG) Pt will be independent with a self care HEP. (12/27/21: HEP: Ankle DF in sit & stand and sitting ankle EV strengthening) (01/01/22: HEP: Gastroc & Soleus Stretch) 01/03/22: seated hip abd and ankle EV/PF/DF TB strengthening. (01/11/22: Added HEP: Hip AB in sup, sidelie & standing). 01/23/22: added step ups, band walk, fig 4 stretching 2 positions and self massage using ball on wall, effective feedback. LTG Duration 03/25/22 (01/23/22: Progressed) Assessment Summary Assessment Pt improved decrease R hip depression side stepping against resistance with cues for L hip stacked upright posturing. Pt good glut fac step ups LLE, weakness hip abd and ext RLE concentric/ eccentric stepping needed light rail contact for support to allow receiprical stepping . Pt improved more level pelvis gait leaving post strengthening, manual and intiated stretching R hip end tx. Physical Therapy Plan Frequency and Duration Frequency of Treatment 2x/Week Plan of Care Start Date 12/25/21 Plan of Care End Date 03/25/22 Therapeutic Interventions Therapeutic Interventions Aquatic Therapy,Gait Training, Home Exercise Program,Manual Therapy,Neuromuscular Re- education,Patient/Caregiver Education,Self-Care/Home Management,Therapeutic Activities,Therapeutic Exercises Modalities Cold Pack/Ice Massage,Hot Packs Next Visit Focus/Plan Next Note Type Treatment Note Next Visit Plan Improve supine/ side hip abd. POC: Gait training mirror with SPC/trekpole on level and uneven ground, jamie stepping . Assess on/off floor. Assess and issue HEP for limited hip mobility. HEP: Ankle (PF & IV)/knee/hip ext strengthening. HEP: Hip ROM Balance training & HEP
--- NOTE | 2022-01-25 10:31 | PT.OTN ---
Current Diagnoses Muscle weakness (generalized) (01/25/22) Other abnormalities of gait and mobility (01/25/22) Unspecified fall, initial encounter (01/25/22) Activity, other involving muscle strengthening exercises (01/25/22) Physical Therapy Treatment Note PT-OP-A Visit Information Start: 12/21/21 18:19 Freq: Status: Active Protocol: Document 01/25/22 09:51 SP (Rec: 01/25/22 10:39 SP [id number]) Out-Patient Physical Therapy Visit Information Visit Information Visit Type Treatment Note Visit Start Time 09:51 Visit Stop Time 10:31 Total Visit Minutes 40 Visit Number 9 Number of LITERATURE TEACHER Visits 1 Evaluation Information Evaluation Date 12/25/21 Precautions Precautions Bilateral mastectomy - 2 yrs ago and had a small prosthesis added, and still taking cancer medication but no signs of cancer currently, uncontrolled blood pressure. PT-OP-B Current Condition Start: 12/21/21 18:19 Freq: Status: Active Protocol: Document 12/25/21 11:20 LRN (Rec: 12/25/21 12:37 LRN [id number]) Current Condition History of Current Condition Onset Date 4 months ago dizziness Current Complaints Weakness of the legs, fear of falling downstairs, sometimes balance problem History of Current Condition 3 months ago when waking the room was swimming. Dizziness went away and just the past 2 weeks ago it started again. Pt also notes after bending over (one event) to pick something up she had an episode of [facility] room spinning. She has not had any other experiences since that time. Last summer her kids noticed she was starting to hold onto things. She was not able to go down stairs without hanging onto the house. States she needed to hang onto something going down stairs due to weakness of the legs and fear of falling down the stairs. She denies fear of falling while walking around the house . Fell last week trying to kick her L shoe off her feet and fell onto the floor. States she will now sit on her bed to remove her shoes. Tries to be careful walking on uneven ground. Prior Treatments and Tests None Treatment Goals Patient/Caregiver Goals Pt is not sure of the goal. States her physician felt she needed therapy due to her need of grabbing railings, and her recent fall trying to kick her shoes off. Prior Functional Status Baseline Function- ADL's Independent Baseline Function- Mobility Independent Baseline Function- Recreation/Hobbies Able to clean house and garden without difficulty. Current Functional Impairments (Reported) Functional Limitations- ADL's Keeps house and gardens, no problems with these activities . Functional Limitations- Mobility/Gait Ambulates with lean to the right. Personal Factors Other Personal Factors That May Effect Active with gardening, Therapy/Recovery mastectomy in 06/2019 resulting from having large breasts to small implanted breasts. PT-OP-C Subjective Start: 12/21/21 18:19 Freq: Status: Active Protocol: Document 01/25/22 09:51 SP (Rec: 01/25/22 10:39 SP [id number]) OP-PT Subjective Patient Comments Patient Comments Pt reported more conscious of posture and alignment during gait. Patient Reported Progress Improving PT-OP-D Balance Start: 12/21/21 18:19 Freq: Status: Active Protocol: Document 01/01/22 12:36 LRN (Rec: 01/01/22 13:49 LRN [id number]) Brown Balance Assessment Evaluation Sitting to Standing Ability Independent w/out Hands Sitting Unsupported, Feet on Floor Safely- 2 minutes Standing to Sitting Ability Safely, Minimal Hand Use Transfer Ability Safely, Minimal Hand Use Unsupported Stance- Eyes Closed Safely, 10 seconds Unsupported Stance- Eyes Open Independent, 1 minute Reaching Forward Standing Confidently, 10 inches Pick- Up Object From Floor Independent/Safe Look Behind Shoulder - Standing Shifts Weight Well Turning 360 Degrees Turns slowly, but safely Unsupported Stance, Alternating Feet on (I)- 8 Steps in 20 secs Stair Unsupported Tandem Stance Balance Lost- Step/Stand Unilateral Leg Stance Lifts Leg/Unable to Hold Total Score Brown Total Score (out of 56 points) 43 Brown Impairment Rating 20 to 39% Impaired (Score 34- 44) PT-OP-E Functional Tests Start: 12/21/21 18:19 Freq: Status: Active Protocol: Document 01/09/22 10:37 SP (Rec: 01/09/22 12:19 SP [id number]) Functional Tests Other BROWN Name of Test BROWN Score 46/56 Comment decrease SLS time, see scanned form completed. PT-OP-G Mobility & Gait Start: 12/21/21 18:19 Freq: Status: Active Protocol: Document 12/27/21 14:38 LRN (Rec: 12/27/21 15:22 LRN [id number]) Stair Climbing Evaluation Evaluation Level of Assist On Stairs Independent Devices Stair Climbing Assistive Devices Left Railing,Right Railing Technique/Endurance Stair Climbing Direction Ascend and Descend Stair Climbing Technique Step Over Step Number of Steps Climbed 4 Stair Climbing Set # Repetitions (reps) 1 Comments Stair Climbing Comments Able to go Up stairs with R railing and downstairs with R railing. Pt jumps up when leading with RLE, moderately uncontrolled when going down leading with LLE and she rotates to the R. PT-OP-J Posture/Palpation/Skin Start: 12/21/21 18:19 Freq: Status: Active Protocol: Document 12/25/21 11:20 LRN (Rec: 12/25/21 12:37 LRN [id number]) Posture Evaluation Position Standing T-Spine Posture Flattened L-Spine Posture Increased Lordosis Shoulder Posture (L) Elevated Arm Posture (L) Internally Rotated,(R) Internally Rotated Hip Posture (L) Externally Rotated,(R) Externally Rotated PT-OP-K Range of Motion Start: 12/21/21 18:19 Freq: Status: Active Protocol: Document 12/25/21 11:20 LRN (Rec: 12/25/21 12:37 LRN [id number]) Ankle and Foot Goniometric Range of Motion Ankle and Foot Right Active Ankle/Foot ROM WFL No Testing Position Supine Dorsiflexion with Knee Extended 0 Eversion 10 Left Active Ankle/Foot ROM WFL No Testing Position Supine Dorsiflexion with Knee Extended 6 Eversion 28 PT-OP-M Strength Start: 12/21/21 18:19 Freq: Status: Active Protocol: Document 12/25/21 11:20 LRN (Rec: 12/25/21 12:37 LRN [id number]) Hand Senior Online Marketing Manager/Pinch Strength Hand Dominance Hand Dominance Right Hip Strength Hip Manual Muscle Testing Right Comments Strength overall is 3/5. Left Adduction 5 Normal Comments Strength overall is 3/5 except as indicated above. Knee Strength Knee Manual Muscle Testing Right Flexion (S2) 3 Fair Extension (L3) 3 Fair Left Flexion (S2) 3 Fair Extension (L3) 5 Normal Ankle/Foot Strength Ankle and Foot Manual Muscle Testing Right Dorsiflexion (L4) 3 Fair Plantarflexion (S1) 4 Good Inversion 5 Normal Eversion (S1) 5 Normal Left Dorsiflexion (L4) 3 Fair Plantarflexion (S1) 4- Good- Inversion 5 Normal Eversion (S1) 5 Normal PT-OP-Q Treatments Start: 12/21/21 18:19 Freq: Status: Active Protocol: Document 01/25/22 09:51 SP (Rec: 01/25/22 10:39 SP [id number]) Gym Equipment Shuttle Recovery bilateral squat Details cued knees apart see B insoles Resistance 75# Reps/Time 2x20 Therapeutic Exercises Sitting Exercises Ankle EV Sitting Exercise Name Active Ankle EV- not performed doing at home Side bilateral Resistance TB #2>#3 Equipment Used good spacing between knees Reps/Minutes 15x 2 Comments Good L hand contact L knee to keep from hip ERing Ankle DF Sitting Exercise Name Active ankle PF, DF- reviewed HEP Side bilateral Resistance TB #2>#3 Equipment Used good spacing between knees Reps/Minutes 15x 2 each Comments cued for slow eccentric control return start position Standing Exercises Hip AB Standing Exercise Name Hip AB- L hip abd weakness Side bilateral Resistance R TB Reps/Minutes x10 reps Comments cued upright posture, TA and L hip abd fac during RLE kick band walk Standing Exercise Name HEP Side bilateral Resistance TB #2 loop ( RTB inPT) Equipment Used light contact rail RUE going R only Reps/Minutes x3 laps F/b/side stepping Comments cued tall posture over LLE during RLE locomotion for level pelvis Ankle DF Standing Exercise Name Active ankle DF Side bilateral Equipment Used rail PRN Reps/Minutes x10 Comments good slow pacing, cue x1 for not rocking back Step ups/downs Standing Exercise Name step up/down outside curb Side bilateral Resistance AROM Equipment Used SBA 8 step, no UE LLE/ light contact RLE ascending Reps/Minutes 10x each side Comments challenged R LE very little momentum, no UE lead LLE Gait Training Gait Activity gait in mirror Description focused alignment, TA and hip abd fac Device Used 0 Level of Assistance S Surface firm Distance/Duration 20 ft x3 laps each direction fwd/ side step Treatment Focus hip abd and core strengthening for decrease SB compensations Comments improved with visual self feedback of mirror, cued slow upright posture hip abd/glut med fac and alignment over stance LE L more than R. Neuro Re-Education Treatment Balance Activities SLS Equipment corner back, chair front, paper cup on floor for opp LE hover over Comments LLe 8 sec, 5sec; RLE 2-3 sec, 5sec. Stepping over obstacles Details Fwd and Side stepping Equipment 4 hurdles Reps/Duration x2 laps each Comments cued alignment, core and hip abd level shld/ pelvis with slow eccentric heel strike. Improved stability as reps progressed with focus. PT-OP-T Assessment and Plan Start: 12/21/21 18:19 Freq: Status: Active Protocol: Document 01/25/22 09:51 SP (Rec: 01/25/22 10:39 SP [id number]) Physical Therapy Assessment Goals Four Impairment Decreased balance with increased risk of falling Impairment SLS is 0 secs RLE, 1 sec LLE. TUG score is 17 secs (60<80% impaired, score 16-17) Short Term Goal (STG) Pt will be able to SLS no less than 5 secs bilaterally and TUG score 14-15 secs (50<60% impared). 01/09/22: progressing SLS 1-3 sec R and LLE; MET: TUs, 9s. 01/17/22: RLE 1-3sec, LLE 1-2 sec. 01/25/22: LLe 8 sec, 5sec; RLE 2-3 sec, 5sec with papercup under opposite LE hovering over. STG Duration 02/07/22 01/25/22: progressing Senior Living Goal (LTG) Improve TUG 12 secs or less ( 20<40% impaired score 12-13 secs; 1<20% impaired, score 11 ) 01/03/22: STS 1UE support 5 reps in 21sec, TU sec L UE to ascend chair, no UE descend slight plop in chair last 1. 01/09/22: GOAL MET: TUG 10s, 9s. LTG Duration 03/25/22 01/09/22: GOAL MET Two Impairment LE weaknesss Short Term Goal (STG) Able to sit to semiconductor engineer a contolled manner without use of arms and equal WBing through the legs. 01/09/22: PRogressing: needs to use 1 UE 30% effort to come to stand. 01/17/22: progressin% 1 UE support come to stand, no UE descend,cued slow hip hinge complete to no flop last 1. Slow pacing, pause full stand and sit, 5 reps in 27s. 14s, little flop at bottom sit. 01/23/22: pt reports can perform 6 STS without UE support but needs 1 UE for 7th due to tiring. STG Duration 01/25/22 (progressing 01/23/22 ) Senior Living Goal (LTG) Increase hip AB/flex/Ext; knee gayle knee flex & R knee ext, & ankle strength 1 grade (4/5). LTG Duration 03/25/22 One Impairment Lacks appropriate self care HEP Software Reverse Engineer Goal (LTG) Pt will be independent with a self care HEP. (12/27/21: HEP: Ankle DF in sit & stand and sitting ankle EV strengthening) (01/01/22: HEP: Gastroc & Soleus Stretch) 01/03/22: seated hip abd and ankle EV/PF/DF TB strengthening. (01/11/22: Added HEP: Hip AB in sup, sidelie & standing). 01/23/22: added step ups, band walk, fig 4 stretching 2 positions and self massage using ball on wall, effective feedback. LTG Duration 03/25/22 (01/23/22: Progressed) Assessment Summary Assessment Pt improvement in decreased R hip depression during side stepping due to L hip weakness during stepping activities and R hip weakness during forward step up/down stability continues require light 5%A contact on rail for lead RLE. Pt able increase SLS time 5 sec RLE, 8 sec LLE. Physical Therapy Plan Frequency and Duration Frequency of Treatment 2x/Week Plan of Care Start Date 12/25/21 Plan of Care End Date 03/25/22 Therapeutic Interventions Therapeutic Interventions Aquatic Therapy,Gait Training, Home Exercise Program,Manual Therapy,Neuromuscular Re- education,Patient/Caregiver Education,Self-Care/Home Management,Therapeutic Activities,Therapeutic Exercises Modalities Cold Pack/Ice Massage,Hot Packs Next Visit Focus/Plan Next Note Type Treatment Note Next Visit Plan COntinue focus hip abd strengthening to assist normalizing gait and balance. Balance hurdles, next tx add sport cord. Consider unilateral shuttle recovery next tx. POC: Gait training mirror with SPC/trekpole on level and uneven ground, jamie stepping . Assess on/off floor. Assess and issue HEP for limited hip mobility. HEP: Ankle (PF & IV)/knee/hip ext strengthening. HEP: Hip ROM Balance training & HEP
--- NOTE | 2022-01-31 13:45 | PT.OTN ---
Current Diagnoses Muscle weakness (generalized) (01/31/22) Other abnormalities of gait and mobility (01/31/22) Unspecified fall, initial encounter (01/31/22) Activity, other involving muscle strengthening exercises (01/31/22) Physical Therapy Treatment Note PT-OP-A Visit Information Start: 12/21/21 18:19 Freq: Status: Active Protocol: Document 01/31/22 13:05 SP (Rec: 01/31/22 13:53 SP [id number]) Out-Patient Physical Therapy Visit Information Visit Information Visit Type Treatment Note Visit Start Time 13:05 Visit Stop Time 13:45 Total Visit Minutes 40 Visit Number 10 Number of PROFESSIONAL SPORTS SCOUT Visits 2 Evaluation Information Evaluation Date 12/25/21 Precautions Precautions Bilateral mastectomy - 2 yrs ago and had a small prosthesis added, and still taking cancer medication but no signs of cancer currently, uncontrolled blood pressure. PT-OP-B Current Condition Start: 12/21/21 18:19 Freq: Status: Active Protocol: Document 12/25/21 11:20 LRN (Rec: 12/25/21 12:37 LRN [id number]) Current Condition History of Current Condition Onset Date 4 months ago dizziness Current Complaints Weakness of the legs, fear of falling downstairs, sometimes balance problem History of Current Condition 3 months ago when waking the room was swimming. Dizziness went away and just the past 2 weeks ago it started again. Pt also notes after bending over (one event) to pick something up she had an episode of trihealth room spinning. She has not had any other experiences since that time. Last summer her kids noticed she was starting to hold onto things. She was not able to go down stairs without hanging onto the house. States she needed to hang onto something going down stairs due to weakness of the legs and fear of falling down the stairs. She denies fear of falling while walking around the house . Fell last week trying to kick her L shoe off her feet and fell onto the floor. States she will now sit on her bed to remove her shoes. Tries to be careful walking on uneven ground. Prior Treatments and Tests None Treatment Goals Patient/Caregiver Goals Pt is not sure of the goal. States her physician felt she needed therapy due to her need of grabbing railings, and her recent fall trying to kick her shoes off. Prior Functional Status Baseline Function- ADL's Independent Baseline Function- Mobility Independent Baseline Function- Recreation/Hobbies Able to clean house and garden without difficulty. Current Functional Impairments (Reported) Functional Limitations- ADL's Keeps house and gardens, no problems with these activities . Functional Limitations- Mobility/Gait Ambulates with lean to the right. Personal Factors Other Personal Factors That May Effect Active with gardening, Therapy/Recovery mastectomy in 06/2019 resulting from having large breasts to small implanted breasts. PT-OP-C Subjective Start: 12/21/21 18:19 Freq: Status: Active Protocol: Document 01/31/22 13:05 SP (Rec: 01/31/22 13:53 SP [id number]) OP-PT Subjective Patient Comments Patient Comments Pt report can walk better when conscious of tall and TA facilitation. Is ableto ascend /descend stairs without UE support outside deck but not garage door due to needing keep door open to walk in. Continues to work on SLS but didn't use hover cup that worke in therapy. R hipbetter after manual and helped wants to do again today. Pt reports was able push her filled wheel [place] up her inclined driveway herself. Patient Reported Progress Improving PT-OP-D Balance Start: 12/21/21 18:19 Freq: Status: Active Protocol: Document 01/01/22 12:36 LRN (Rec: 01/01/22 13:49 LRN [id number]) Brown Balance Assessment Evaluation Sitting to Standing Ability Independent w/out Hands Sitting Unsupported, Feet on Floor Safely- 2 minutes Standing to Sitting Ability Safely, Minimal Hand Use Transfer Ability Safely, Minimal Hand Use Unsupported Stance- Eyes Closed Safely, 10 seconds Unsupported Stance- Eyes Open Independent, 1 minute Reaching Forward Standing Confidently, 10 inches Pick- Up Object From Floor Independent/Safe Look Behind Shoulder - Standing Shifts Weight Well Turning 360 Degrees Turns slowly, but safely Unsupported Stance, Alternating Feet on (I)- 8 Steps in 20 secs Stair Unsupported Tandem Stance Balance Lost- Step/Stand Unilateral Leg Stance Lifts Leg/Unable to Hold Total Score Brown Total Score (out of 56 points) 43 Brown Impairment Rating 20 to 39% Impaired (Score 34- 44) PT-OP-E Functional Tests Start: 12/21/21 18:19 Freq: Status: Active Protocol: Document 01/09/22 10:37 SP (Rec: 01/09/22 12:19 SP [id number]) Functional Tests Other BROWN Name of Test BROWN Score 46/56 Comment decrease SLS time, see scanned form completed. PT-OP-G Mobility & Gait Start: 12/21/21 18:19 Freq: Status: Active Protocol: Document 12/27/21 14:38 LRN (Rec: 12/27/21 15:22 LRN [id number]) Stair Climbing Evaluation Evaluation Level of Assist On Stairs Independent Devices Stair Climbing Assistive Devices Left Railing,Right Railing Technique/Endurance Stair Climbing Direction Ascend and Descend Stair Climbing Technique Step Over Step Number of Steps Climbed 4 Stair Climbing Set # Repetitions (reps) 1 Comments Stair Climbing Comments Able to go Up stairs with R railing and downstairs with R railing. Pt jumps up when leading with RLE, moderately uncontrolled when going down leading with LLE and she rotates to the R. PT-OP-J Posture/Palpation/Skin Start: 12/21/21 18:19 Freq: Status: Active Protocol: Document 12/25/21 11:20 LRN (Rec: 12/25/21 12:37 LRN [id number]) Posture Evaluation Position Standing T-Spine Posture Flattened L-Spine Posture Increased Lordosis Shoulder Posture (L) Elevated Arm Posture (L) Internally Rotated,(R) Internally Rotated Hip Posture (L) Externally Rotated,(R) Externally Rotated PT-OP-K Range of Motion Start: 12/21/21 18:19 Freq: Status: Active Protocol: Document 12/25/21 11:20 LRN (Rec: 12/25/21 12:37 LRN [id number]) Ankle and Foot Goniometric Range of Motion Ankle and Foot Right Active Ankle/Foot ROM WFL No Testing Position Supine Dorsiflexion with Knee Extended 0 Eversion 10 Left Active Ankle/Foot ROM WFL No Testing Position Supine Dorsiflexion with Knee Extended 6 Eversion 28 PT-OP-M Strength Start: 12/21/21 18:19 Freq: Status: Active Protocol: Document 12/25/21 11:20 LRN (Rec: 12/25/21 12:37 LRN [id number]) Hand Director Of Music/Pinch Strength Hand Dominance Hand Dominance Right Hip Strength Hip Manual Muscle Testing Right Comments Strength overall is 3/5. Left Adduction 5 Normal Comments Strength overall is 3/5 except as indicated above. Knee Strength Knee Manual Muscle Testing Right Flexion (S2) 3 Fair Extension (L3) 3 Fair Left Flexion (S2) 3 Fair Extension (L3) 5 Normal Ankle/Foot Strength Ankle and Foot Manual Muscle Testing Right Dorsiflexion (L4) 3 Fair Plantarflexion (S1) 4 Good Inversion 5 Normal Eversion (S1) 5 Normal Left Dorsiflexion (L4) 3 Fair Plantarflexion (S1) 4- Good- Inversion 5 Normal Eversion (S1) 5 Normal PT-OP-Q Treatments Start: 12/21/21 18:19 Freq: Status: Active Protocol: Document 01/31/22 13:05 SP (Rec: 01/31/22 13:53 SP [id number]) Gym Equipment Shuttle Recovery bilateral squat Details cued knees apart see B insoles Resistance 75# Reps/Time 2x20 Therapeutic Exercises Supine Exercises hip ER stretch Supine Exercise Name reviewed HEP: fig 4 and Side right Reps/Minutes 30 Comments good form, breath cues and allow LE sink toward floor 2 legged hip AB Supine Exercise Name Hip AB Side bilateral Reps/Minutes x10 Comments better form, TA and less no upper body recruit Sidelying Exercises Clamshell Sidelying Exercise Name Clamshell Side bilateral Resistance AROM x5 good form>TB #1loop Reps/Minutes 2x5 reps Comments incorporated with sustained pressure pirif this tx Standing Exercises band walk Standing Exercise Name HEP Side bilateral Resistance TB #2 loop ( RTB inPT) Equipment Used light contact rail RUE going R only Reps/Minutes x3 laps F/b/side stepping Comments cued tall posture over LLE during RLE locomotion for level pelvis Manual Therapy Treatment Soft Tissue Mobilization R piriformis, glut med Body Location & R TFL Mobilization Type Myofascial Release,Strumming, Sustained Pressure Intensity/Depth Moderate Body Position Sidelying Comments manual and MWM during initiated clamself small range motion. Ed about self using racquetball on wall and rolling pin quad/ ADD/ HS/ calf. Neuro Re-Education Treatment Balance Activities SLS Equipment corner back, chair front, paper cup on floor for opp LE hover over Comments LLe 2 sec, 3 sec; RLE 2-3 sec , 4sec Decrease from 8 sec LLE last tx. Stepping over obstacles Details Fwd and Side stepping Equipment 6 hurdles Reps/Duration x2 laps each Comments cued alignment, core with improved scap retraction able to perform without UE support today. PT-OP-T Assessment and Plan Start: 12/21/21 18:19 Freq: Status: Active Protocol: Document 01/31/22 13:05 SP (Rec: 01/31/22 13:53 SP [id number]) Physical Therapy Assessment Goals Four Impairment Decreased balance with increased risk of falling Impairment SLS is 0 secs RLE, 1 sec LLE. TUG score is 17 secs (60<80% impaired, score 16-17) Short Term Goal (STG) Pt will be able to SLS no less than 5 secs bilaterally and TUG score 14-15 secs (50<60% impared). 01/09/22: progressing SLS 1-3 sec R and LLE; MET: TUs, 9s. 01/17/22: RLE 1-3sec, LLE 1-2 sec. 01/25/22: LLe 8 sec, 5sec; RLE 2-3 sec, 5sec with papercup under opposite LE hovering over. 01/31/22: decreased to 2-4sec each LE but improved jamie stepping no UE support. STG Duration 02/07/22 01/31/22: progressing [facility] Goal (LTG) Improve TUG 12 secs or less ( 20<40% impaired score 12-13 secs; 1<20% impaired, score 11 ) 01/03/22: STS 1UE support 5 reps in 21sec, TU sec L UE to ascend chair, no UE descend slight plop in chair last 1. 01/09/22: GOAL MET: TUG 10s, 9s. 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 01/09/22: PRogressing: needs to use 1 UE 30% effort to come to stand. 01/17/22: progressin% 1 UE support come to stand, no UE descend,cued slow hip hinge complete to no flop last 1. Slow pacing, pause full stand and sit, 5 reps in 27s. 14s, little flop at bottom sit. 01/23/22: pt reports can perform 6 STS without UE support but needs 1 UE for 7th due to tiring. STG Duration 01/25/22 (progressing 01/23/22 ) Solar Project Engineer Goal (LTG) Increase hip AB/flex/Ext; knee gayle knee flex & R knee ext, & ankle strength 1 grade (4/5). LTG Duration 03/25/22 One Impairment Lacks appropriate self care HEP Solar Project Engineer Goal (LTG) Pt will be independent with a self care HEP. (12/27/21: HEP: Ankle DF in sit & stand and sitting ankle EV strengthening) (01/01/22: HEP: Gastroc & Soleus Stretch) 01/03/22: seated hip abd and ankle EV/PF/DF TB strengthening. (01/11/22: Added HEP: Hip AB in sup, sidelie & standing). 01/23/22: added step ups, band walk, fig 4 stretching 2 positions and self massage using ball on wall, effective feedback. 01/31/22: added resisted clamshell. LTG Duration 03/25/22 (01/31/22: Progressed) Assessment Summary Assessment Improved SLS time during hurdles not need UE support. Pt demonstrates decreased R hip depression band walk vs AROM side stepping this tx. and almost normal level pelvis gait. Able to add resistance to clamshell. Physical Therapy Plan Frequency and Duration Frequency of Treatment 2x/Week Plan of Care Start Date 12/25/21 Plan of Care End Date 03/25/22 Therapeutic Interventions Therapeutic Interventions Aquatic Therapy,Gait Training, Home Exercise Program,Manual Therapy,Neuromuscular Re- education,Patient/Caregiver Education,Self-Care/Home Management,Therapeutic Activities,Therapeutic Exercises Modalities Cold Pack/Ice Massage,Hot Packs Next Visit Focus/Plan Next Note Type Treatment Note Next Visit Plan COntinue focus hip abd strengthening to assist normalizing gait and balance. Balance hurdles, next tx add sport cord. Consider unilateral shuttle recovery next tx. POC: Gait training mirror with SPC/trekpole on level and uneven ground, jamie stepping . Assess on/off floor. Assess and issue HEP for limited hip mobility. HEP: Ankle (PF & IV)/knee/hip ext strengthening. HEP: Hip ROM Balance training & HEP
--- NOTE | 2022-02-04 13:23 | PT.OTN ---
Current Diagnoses Muscle weakness (generalized) (02/04/22) Other abnormalities of gait and mobility (02/04/22) Unspecified fall, initial encounter (02/04/22) Activity, other involving muscle strengthening exercises (02/04/22) Physical Therapy Treatment Note PT-OP-A Visit Information Start: 12/21/21 18:19 Freq: Status: Active Protocol: Document 02/04/22 10:33 LRN (Rec: 02/04/22 11:22 LRN [id number]) Out-Patient Physical Therapy Visit Information Visit Information Visit Type Progress Note Visit Start Time 10:33 Visit Stop Time 11:15 Total Visit Minutes 42 Visit Number 11 Evaluation Information Evaluation Date 12/25/21 Precautions Precautions Bilateral mastectomy - 2 yrs ago and had a small prosthesis added, and still taking cancer medication but no signs of cancer currently, uncontrolled blood pressure. PT-OP-B Current Condition Start: 12/21/21 18:19 Freq: Status: Active Protocol: Document 12/25/21 11:20 LRN (Rec: 12/25/21 12:37 LRN [id number]) Current Condition History of Current Condition Onset Date 4 months ago dizziness Current Complaints Weakness of the legs, fear of falling downstairs, sometimes balance problem History of Current Condition 3 months ago when waking the room was swimming. Dizziness went away and just the past 2 weeks ago it started again. Pt also notes after bending over (one event) to pick something up she had an episode of the [facility] spinning. She has not had any other experiences since that time. Last summer her kids noticed she was starting to hold onto things. She was not able to go down stairs without hanging onto the house. States she needed to hang onto something going down stairs due to weakness of the legs and fear of falling down the stairs. She denies fear of falling while walking around the house . Fell last week trying to kick her L shoe off her feet and fell onto the floor. States she will now sit on her bed to remove her shoes. Tries to be careful walking on uneven ground. Prior Treatments and Tests None Treatment Goals Patient/Caregiver Goals Pt is not sure of the goal. States her physician felt she needed therapy due to her need of grabbing railings, and her recent fall trying to kick her shoes off. Prior Functional Status Baseline Function- ADL's Independent Baseline Function- Mobility Independent Baseline Function- Recreation/Hobbies Able to clean house and garden without difficulty. Current Functional Impairments (Reported) Functional Limitations- ADL's Keeps house and gardens, no problems with these activities . Functional Limitations- Mobility/Gait Ambulates with lean to the right. Personal Factors Other Personal Factors That May Effect Active with gardening, Therapy/Recovery mastectomy in 06/2019 resulting from having large breasts to small implanted breasts. PT-OP-C Subjective Start: 12/21/21 18:19 Freq: Status: Active Protocol: Document 02/04/22 10:33 LRN (Rec: 02/04/22 11:22 LRN [id number]) OP-PT Subjective Patient Comments Patient Comments Has trouble going downstairs that may be due to astigmatism because of trouble judging distance. States she can go up the 2 steps from deck to upper deck that she couldn't do a month ago. Can't go up stairs in garage when carrying something. PT-OP-D Balance Start: 12/21/21 18:19 Freq: Status: Active Protocol: Document 01/01/22 12:36 LRN (Rec: 01/01/22 13:49 LRN [id number]) Brown Balance Assessment Evaluation Sitting to Standing Ability Independent w/out Hands Sitting Unsupported, Feet on Floor Safely- 2 minutes Standing to Sitting Ability Safely, Minimal Hand Use Transfer Ability Safely, Minimal Hand Use Unsupported Stance- Eyes Closed Safely, 10 seconds Unsupported Stance- Eyes Open Independent, 1 minute Reaching Forward Standing Confidently, 10 inches Pick- Up Object From Floor Independent/Safe Look Behind Shoulder - Standing Shifts Weight Well Turning 360 Degrees Turns slowly, but safely Unsupported Stance, Alternating Feet on (I)- 8 Steps in 20 secs Stair Unsupported Tandem Stance Balance Lost- Step/Stand Unilateral Leg Stance Lifts Leg/Unable to Hold Total Score Brown Total Score (out of 56 points) 43 Brown Impairment Rating 20 to 39% Impaired (Score 34- 44) PT-OP-E Functional Tests Start: 12/21/21 18:19 Freq: Status: Active Protocol: Document 01/09/22 10:37 SP (Rec: 01/09/22 12:19 SP [id number]) Functional Tests Other BROWN Name of Test BROWN Score 46/56 Comment decrease SLS time, see scanned form completed. PT-OP-G Mobility & Gait Start: 12/21/21 18:19 Freq: Status: Active Protocol: Document 12/27/21 14:38 LRN (Rec: 12/27/21 15:22 LRN [id number]) Stair Climbing Evaluation Evaluation Level of Assist On Stairs Independent Devices Stair Climbing Assistive Devices Left Railing,Right Railing Technique/Endurance Stair Climbing Direction Ascend and Descend Stair Climbing Technique Step Over Step Number of Steps Climbed 4 Stair Climbing Set # Repetitions (reps) 1 Comments Stair Climbing Comments Able to go Up stairs with R railing and downstairs with R railing. Pt jumps up when leading with RLE, moderately uncontrolled when going down leading with LLE and she rotates to the R. PT-OP-J Posture/Palpation/Skin Start: 12/21/21 18:19 Freq: Status: Active Protocol: Document 12/25/21 11:20 LRN (Rec: 12/25/21 12:37 LRN [id number]) Posture Evaluation Position Standing T-Spine Posture Flattened L-Spine Posture Increased Lordosis Shoulder Posture (L) Elevated Arm Posture (L) Internally Rotated,(R) Internally Rotated Hip Posture (L) Externally Rotated,(R) Externally Rotated PT-OP-K Range of Motion Start: 12/21/21 18:19 Freq: Status: Active Protocol: Document 12/25/21 11:20 LRN (Rec: 12/25/21 12:37 LRN [id number]) Ankle and Foot Goniometric Range of Motion Ankle and Foot Right Active Ankle/Foot ROM WFL No Testing Position Supine Dorsiflexion with Knee Extended 0 Eversion 10 Left Active Ankle/Foot ROM WFL No Testing Position Supine Dorsiflexion with Knee Extended 6 Eversion 28 PT-OP-M Strength Start: 12/21/21 18:19 Freq: Status: Active Protocol: Document 02/04/22 10:33 LRN (Rec: 02/04/22 11:22 LRN [id number]) Hip Strength Hip Manual Muscle Testing Right Flexion (L2) 5 Normal Extension (S1) 3 Fair Abduction 3+ Fair+ Adduction 5 Normal External Rotation 2 Poor Internal Rotation 4 Good Comments IR is painful in hip with AROM Left Flexion (L2) 5 Normal Extension (S1) 5 Normal Abduction 3- Fair- Adduction 5 Normal External Rotation 5 Normal Internal Rotation 3 Fair Knee Strength Knee Manual Muscle Testing Right Flexion (S2) 5 Normal Extension (L3) 5 Normal Left Flexion (S2) 5 Normal Extension (L3) 5 Normal Ankle/Foot Strength Ankle and Foot Manual Muscle Testing Right Dorsiflexion (L4) 5 Normal Plantarflexion (S1) 5 Normal Inversion 5 Normal Eversion (S1) 5 Normal Left Dorsiflexion (L4) 5 Normal Plantarflexion (S1) 5 Normal Inversion 5 Normal Eversion (S1) 5 Normal PT-OP-Q Treatments Start: 12/21/21 18:19 Freq: Status: Active Protocol: Document 02/04/22 10:33 LRN (Rec: 02/04/22 11:22 LRN [id number]) Therapeutic Exercises Supine Exercises Hip Flex Side bilateral Reps/Minutes 2x each Comments MMT taken Prone Exercises Hip Ext Prone Exercise Name Hip Ext Side right Equipment Used E[employer] Technologiesball for support for R ankle to get Hip Ext range Reps/Minutes 6' Comments Much cuing/training for maintaining neutral pelvis with hip ext, MMT taken Sidelying Exercises Hip AB Sidelying Exercise Name Hip AB w/top pelvis in neutral training Side bilateral Reps/Minutes 10' Comments Cuing on L side to keep stacked and hip isolate abd. Much training needed Sitting Exercises Knee ARROM Sitting Exercise Name Knee ARROM Side bilateral Comments MMT taken Ankle ARROM Sitting Exercise Name Ankle ARROM Side bilateral Comments MMT taken Standing Exercises Awareness training Standing Exercise Name R pelvis anterior rot Side right Reps/Minutes 10' Neuro Re-Education Treatment Balance Activities TUG Details TUG Reps/Duration 3' Comments 12 sec x 2 SLS Details SLS Reps/Duration 5' PT-OP-T Assessment and Plan Start: 12/21/21 18:19 Freq: Status: Active Protocol: Document 02/04/22 10:33 LRN (Rec: 02/04/22 11:22 LRN [id number]) Physical Therapy Assessment Rehab Potential Rehabilitation Potential Good Evaluation Complexity Number of Personal Factors/Comorbidities 1-2 Number of Body Systems Impaired 4 or More Clinical Presentation at Evaluation Evolving Impairments Impairments Activity Tolerance,Balance, Functional Activities,Gait, Pain,Posture,ROM,Soft Tissue Mobility,Strength,Transfers Goals Four Impairment Decreased balance with increased risk of falling Impairment SLS is 0 secs RLE, 1 sec LLE. TUG score is 17 secs (60<80% impaired, score 16-17) Short Term Goal (STG) Pt will be able to SLS no less than 5 secs bilaterally and TUG score 14-15 secs (50<60% impared). 01/09/22: progressing SLS 1-3 sec R and LLE; MET: TUs, 9s. 01/17/22: RLE 1-3sec, LLE 1-2 sec. 01/25/22: LLe 8 sec, 5sec; RLE 2-3 sec, 5 sec with papercup under opposite LE hovering over. 01/31/22: decreased to 2-4sec each LE but improved jamie stepping no UE support. (02/04/22: TUG is 12 secs. SLS (in Keds-type shoes): 1 sec LLE; 3 sec RLE STG Duration 02/07/22 01/31/22: progressing Jail Goal (LTG) Improve TUG 12 secs or less ( 20<40% impaired score 12-13 secs; 1<20% impaired, score 11 ) 01/03/22: STS 1UE support 5 reps in 21sec, TU sec L UE to ascend chair, no UE descend slight plop in chair last 1. 01/09/22: GOAL MET: TUG 10s, 9s. TUG 12 secs. LTG Duration 03/25/22 (01/09/22: GOAL MET) Three Impairment Gait disturbance Impairment 01/01/22: BROWN score 43 (20-39 % impaired) 01/09/22: BROWN 46/56 Short Term Goal (STG) Pt will demonstrate appropriate use of an assistive device outside the home on unlevel surface (cane) with gait. (01/01/22: Gait training with SPC) 01/09/22: GOAL MET: able to walk on uneven incline/decline grass using trek pole appropriate in RUE patterning with LLE, decrease stance time on LLE noted but safe/ stable . STG Duration 01/11/22 (01/09/22: GOAL MET) Residential Treatment Staff Goal (LTG) Ability to walk on uneven surface (yard/garden) without fear of falling with a cane. (01/01/22: Gait training with SPC) 01/09/22: GOAL MET: able to walk out on lawn using wheelbarrel or gardening bag in 1 had and trek pole in other over the weekend without fear of falling. LTG Duration 03/25/22 (01/09/22: GOAL MET) Two Impairment LE weaknesss Short Term Goal (STG) Able to sit to community outreach coordinator a contolled manner without use of arms and equal WBing through the legs. 01/09/22: PRogressing: needs to use 1 UE 30% effort to come to stand. 01/17/22: progressin% 1 UE support come to stand, no UE descend,cued slow hip hinge complete to no flop last 1. Slow pacing, pause full stand and sit, 5 reps in 27s. 14s, little flop at bottom sit. 01/23/22: pt reports can perform 6 STS without UE support but needs 1 UE for 7th due to tiring. (02/04/22: Able to stand normal; sitting WB's more on LLE due to R hip pain). STG Duration 01/25/22 (02/04/22: MET GOAL) Residential Treatment Staff Goal (LTG) Increase hip AB/flex/Ext; knee vane knee flex & R knee ext, & ankle strength 1 grade (4/5). (02/04/22: Vane Knee and ankle strength is 5/5; Hip strength is decreased - see MMT above for hip) LTG Duration 03/25/22 (02/04/22: Partially met goal) One Impairment Lacks appropriate self care HEP Jail Goal (LTG) Pt will be independent with a self care HEP. (12/27/21: HEP: Ankle DF in sit & stand and sitting ankle EV strengthening) (01/01/22: HEP: Gastroc & Soleus Stretch) 01/03/22: seated hip abd and ankle EV/PF/DF TB strengthening. (01/11/22: Added HEP: Hip AB in sup, sidelie & standing). 01/23/22: added step ups, band walk, fig 4 stretching 2 positions and self massage using ball on wall, effective feedback. 01/31/22: added resisted clamshell. LTG Duration 03/25/22 (01/31/22: Progressed) Progress Towards Goals Progress Comments Improved balance per TUG score , decreased SLS scoring. VANE LE strength has improved except for vane hip AB, R Ext/ ER & Vane hip IR (L>R). Pt is able to control descent with sit<>stand. Sitting pt WBs more on LLE due to hip pain. Vane Knee & Ankle strength has normalized. Assessment Summary Assessment Pt has improved in balance per TUG score, but demonstrates decreased SLS ability (Keds type shoes); therefore further SLS type balance training needed. Her VANE LE strength has improved except for vane hip AB, R Ext/ER & Vane hip IR (L>R). Physical Therapy Plan Frequency and Duration Frequency of Treatment 2x/Week Plan of Care Start Date 12/25/21 Plan of Care End Date 03/25/22 Therapeutic Interventions Therapeutic Interventions Balance Training,Gait Training ,Home Exercise Program,Joint Mobilizations,Manual Therapy, Neuromuscular Re-education, Patient/Caregiver Education, Self-Care/Home Management,Soft Tissue Mobilization, Therapeutic Exercises Modalities Cold Pack/Ice Massage,Hot Packs Next Visit Focus/Plan Next Note Type Treatment Note Next Visit Plan Continue focus: hip strengthening in areas of weakness (vane hip AB, R Ext/ER & Vane hip IR (L>R)), to assist normalizing gait and balance. Balance hurdles, next tx add sport cord. Add unilateral shuttle recovery next tx if not limited on R due to hip pain. POC: Gait training mirror with SPC/trekpole on level and uneven ground, jamie stepping . Assess on/off floor. Assess and issue HEP for limited mobility (jordan hip ER piriformis). HEP: Hip ROM Balance training & HEP
--- NOTE | 2022-02-07 13:03 | PT.OTN ---
Current Diagnoses Muscle weakness (generalized) (02/07/22) Other abnormalities of gait and mobility (02/07/22) Unspecified fall, initial encounter (02/07/22) Activity, other involving muscle strengthening exercises (02/07/22) Physical Therapy Treatment Note PT-OP-A Visit Information Start: 12/21/21 18:19 Freq: Status: Active Protocol: Document 02/07/22 12:19 SP (Rec: 02/07/22 13:05 SP [id number]) Out-Patient Physical Therapy Visit Information Visit Information Visit Type Treatment Note Visit Start Time 12:19 Visit Stop Time 13:03 Total Visit Minutes 44 Visit Number 12 Number of BUSINESS ACCOUNT SPECIALIST Visits 1 Evaluation Information Evaluation Date 12/25/21 Precautions Precautions Bilateral mastectomy - 2 yrs ago and had a small prosthesis added, and still taking cancer medication but no signs of cancer currently, uncontrolled blood pressure. PT-OP-B Current Condition Start: 12/21/21 18:19 Freq: Status: Active Protocol: Document 12/25/21 11:20 LRN (Rec: 12/25/21 12:37 LRN [id number]) Current Condition History of Current Condition Onset Date 4 months ago dizziness Current Complaints Weakness of the legs, fear of falling downstairs, sometimes balance problem History of Current Condition 3 months ago when waking the room was swimming. Dizziness went away and just the past 2 weeks ago it started again. Pt also notes after bending over (one event) to pick something up she had an episode of [facility] room spinning. She has not had any other experiences since that time. Last summer her kids noticed she was starting to hold onto things. She was not able to go down stairs without hanging onto the house. States she needed to hang onto something going down stairs due to weakness of the legs and fear of falling down the stairs. She denies fear of falling while walking around the house . Fell last week trying to kick her L shoe off her feet and fell onto the floor. States she will now sit on her bed to remove her shoes. Tries to be careful walking on uneven ground. Prior Treatments and Tests None Treatment Goals Patient/Caregiver Goals Pt is not sure of the goal. States her physician felt she needed therapy due to her need of grabbing railings, and her recent fall trying to kick her shoes off. Prior Functional Status Baseline Function- ADL's Independent Baseline Function- Mobility Independent Baseline Function- Recreation/Hobbies Able to clean house and garden without difficulty. Current Functional Impairments (Reported) Functional Limitations- ADL's Keeps house and gardens, no problems with these activities . Functional Limitations- Mobility/Gait Ambulates with lean to the right. Personal Factors Other Personal Factors That May Effect Active with gardening, Therapy/Recovery mastectomy in 06/2019 resulting from having large breasts to small implanted breasts. PT-OP-C Subjective Start: 12/21/21 18:19 Freq: Status: Active Protocol: Document 02/07/22 12:19 SP (Rec: 02/07/22 13:05 SP [id number]) OP-PT Subjective Patient Comments Patient Comments Pt reported was tired after last tx, good hip exercises, tires to focus on trunk stability gait. She reports is going to visit sister who has pool soon and wants to know how can apply same exercises in pool? PT-OP-D Balance Start: 12/21/21 18:19 Freq: Status: Active Protocol: Document 01/01/22 12:36 LRN (Rec: 01/01/22 13:49 LRN [id number]) Brown Balance Assessment Evaluation Sitting to Standing Ability Independent w/out Hands Sitting Unsupported, Feet on Floor Safely- 2 minutes Standing to Sitting Ability Safely, Minimal Hand Use Transfer Ability Safely, Minimal Hand Use Unsupported Stance- Eyes Closed Safely, 10 seconds Unsupported Stance- Eyes Open Independent, 1 minute Reaching Forward Standing Confidently, 10 inches Pick- Up Object From Floor Independent/Safe Look Behind Shoulder - Standing Shifts Weight Well Turning 360 Degrees Turns slowly, but safely Unsupported Stance, Alternating Feet on (I)- 8 Steps in 20 secs Stair Unsupported Tandem Stance Balance Lost- Step/Stand Unilateral Leg Stance Lifts Leg/Unable to Hold Total Score Brown Total Score (out of 56 points) 43 Brown Impairment Rating 20 to 39% Impaired (Score 34- 44) PT-OP-E Functional Tests Start: 12/21/21 18:19 Freq: Status: Active Protocol: Document 01/09/22 10:37 SP (Rec: 01/09/22 12:19 SP [id number]) Functional Tests Other BROWN Name of Test BROWN Score 46/56 Comment decrease SLS time, see scanned form completed. PT-OP-G Mobility & Gait Start: 12/21/21 18:19 Freq: Status: Active Protocol: Document 12/27/21 14:38 LRN (Rec: 12/27/21 15:22 LRN [id number]) Stair Climbing Evaluation Evaluation Level of Assist On Stairs Independent Devices Stair Climbing Assistive Devices Left Railing,Right Railing Technique/Endurance Stair Climbing Direction Ascend and Descend Stair Climbing Technique Step Over Step Number of Steps Climbed 4 Stair Climbing Set # Repetitions (reps) 1 Comments Stair Climbing Comments Able to go Up stairs with R railing and downstairs with R railing. Pt jumps up when leading with RLE, moderately uncontrolled when going down leading with LLE and she rotates to the R. PT-OP-J Posture/Palpation/Skin Start: 12/21/21 18:19 Freq: Status: Active Protocol: Document 12/25/21 11:20 LRN (Rec: 12/25/21 12:37 LRN [id number]) Posture Evaluation Position Standing T-Spine Posture Flattened L-Spine Posture Increased Lordosis Shoulder Posture (L) Elevated Arm Posture (L) Internally Rotated,(R) Internally Rotated Hip Posture (L) Externally Rotated,(R) Externally Rotated PT-OP-K Range of Motion Start: 12/21/21 18:19 Freq: Status: Active Protocol: Document 12/25/21 11:20 LRN (Rec: 12/25/21 12:37 LRN [id number]) Ankle and Foot Goniometric Range of Motion Ankle and Foot Right Active Ankle/Foot ROM WFL No Testing Position Supine Dorsiflexion with Knee Extended 0 Eversion 10 Left Active Ankle/Foot ROM WFL No Testing Position Supine Dorsiflexion with Knee Extended 6 Eversion 28 PT-OP-M Strength Start: 12/21/21 18:19 Freq: Status: Active Protocol: Document 02/04/22 10:33 LRN (Rec: 02/04/22 11:22 LRN [id number]) Hip Strength Hip Manual Muscle Testing Right Flexion (L2) 5 Normal Extension (S1) 3 Fair Abduction 3+ Fair+ Adduction 5 Normal External Rotation 2 Poor Internal Rotation 4 Good Comments IR is painful in hip with AROM Left Flexion (L2) 5 Normal Extension (S1) 5 Normal Abduction 3- Fair- Adduction 5 Normal External Rotation 5 Normal Internal Rotation 3 Fair Knee Strength Knee Manual Muscle Testing Right Flexion (S2) 5 Normal Extension (L3) 5 Normal Left Flexion (S2) 5 Normal Extension (L3) 5 Normal Ankle/Foot Strength Ankle and Foot Manual Muscle Testing Right Dorsiflexion (L4) 5 Normal Plantarflexion (S1) 5 Normal Inversion 5 Normal Eversion (S1) 5 Normal Left Dorsiflexion (L4) 5 Normal Plantarflexion (S1) 5 Normal Inversion 5 Normal Eversion (S1) 5 Normal PT-OP-Q Treatments Start: 12/21/21 18:19 Freq: Status: Active Protocol: Document 02/07/22 12:19 SP (Rec: 02/07/22 13:05 SP [id number]) Therapeutic Exercises Supine Exercises hip ER stretch Supine Exercise Name reviewed HEP: fig 4 and piriformis stretching Side right Reps/Minutes 60 each position each Comments cued depress R pelvis toward feet to increase no hip elevation compens. Sidelying Exercises Hip AB Sidelying Exercise Name Hip AB w/top pelvis in neutral training Side bilateral Equipment Used improved with cues Reps/Minutes x10 Comments good sidelying stacked, cued hip extended then lift no hip flex recruitment Sitting Exercises hip IR, ER T Sitting Exercise Name R hip limited ER seated TB, HEP Standing Exercises Hip AB Standing Exercise Name Hip AB and EXT- L hip abd weakness Side bilateral Resistance R TB Reps/Minutes x10 reps Comments cued upright posture, TA and L hip abd fac during RLE kick Self-Care/Home Management Treatment Education Patient Education Home Exercise Program Other Education Time spent discuss with provided HOs for pool application hip ext/ abd and other beneficial exercises for visit at sister's home soon. Suggested contact side pool safest but can also use holding pool noodle front for support/ stability water walking. Added hip IR/ ER see HOs. PT-OP-T Assessment and Plan Start: 12/21/21 18:19 Freq: Status: Active Protocol: Document 02/07/22 12:19 SP (Rec: 02/07/22 13:05 SP [id number]) Physical Therapy Assessment Goals Four Impairment Decreased balance with increased risk of falling Impairment SLS is 0 secs RLE, 1 sec LLE. TUG score is 17 secs (60<80% impaired, score 16-17) Short Term Goal (STG) Pt will be able to SLS no less than 5 secs bilaterally and TUG score 14-15 secs (50<60% impared). 01/09/22: progressing SLS 1-3 sec R and LLE; MET: TUs, 9s. 01/17/22: RLE 1-3sec, LLE 1-2 sec. 01/25/22: LLe 8 sec, 5sec; RLE 2-3 sec, 5 sec with papercup under opposite LE hovering over. 01/31/22: decreased to 2-4sec each LE but improved jamie stepping no UE support. (02/04/22: TUG is 12 secs. SLS (in Keds-type shoes): 1 sec LLE; 3 sec RLE STG Duration 02/07/22 01/31/22: progressing Building Rental Superintendent Goal (LTG) Improve TUG 12 secs or less ( 20<40% impaired score 12-13 secs; 1<20% impaired, score 11 ) 01/03/22: STS 1UE support 5 reps in 21sec, TU sec L UE to ascend chair, no UE descend slight plop in chair last 1. 01/09/22: GOAL MET: TUG 10s, 9s. TUG 12 secs. LTG Duration 03/25/22 (01/09/22: GOAL MET) Three Impairment Gait disturbance Impairment 01/01/22: BROWN score 43 (20-39 % impaired) 01/09/22: BROWN 46/56 Short Term Goal (STG) Pt will demonstrate appropriate use of an assistive device outside the home on unlevel surface (cane) with gait. (01/01/22: Gait training with SPC) 01/09/22: GOAL MET: able to walk on uneven incline/decline grass using trek pole appropriate in RUE patterning with LLE, decrease stance time on LLE noted but safe/ stable . STG Duration 01/11/22 (01/09/22: GOAL MET) Mcc Goal (LTG) Ability to walk on uneven surface (yard/garden) without fear of falling with a cane. (01/01/22: Gait training with SPC) 01/09/22: GOAL MET: able to walk out on lawn using wheelbarrel or gardening bag in 1 had and trek pole in other over the weekend without fear of falling. LTG Duration 03/25/22 (01/09/22: GOAL MET) Two Impairment LE weaknesss Short Term Goal (STG) Able to sit to bioinformaticist a contolled manner without use of arms and equal WBing through the legs. 01/09/22: PRogressing: needs to use 1 UE 30% effort to come to stand. 01/17/22: progressin% 1 UE support come to stand, no UE descend,cued slow hip hinge complete to no flop last 1. Slow pacing, pause full stand and sit, 5 reps in 27s. 14s, little flop at bottom sit. 01/23/22: pt reports can perform 6 STS without UE support but needs 1 UE for 7th due to tiring. (02/04/22: Able to stand normal; sitting WB's more on LLE due to R hip pain). STG Duration 01/25/22 (02/04/22: MET GOAL) Mcc Goal (LTG) Increase hip AB/flex/Ext; knee gayle knee flex & R knee ext, & ankle strength 1 grade (4/5). (02/04/22: Gayle Knee and ankle strength is 5/5; Hip strength is decreased - see MMT above for hip) LTG Duration 03/25/22 (02/04/22: Partially met goal) One Impairment Lacks appropriate self care HEP Mcc Goal (LTG) Pt will be independent with a self care HEP. (12/27/21: HEP: Ankle DF in sit & stand and sitting ankle EV strengthening) (01/01/22: HEP: Gastroc & Soleus Stretch) 01/03/22: seated hip abd and ankle EV/PF/DF TB strengthening. (01/11/22: Added HEP: Hip AB in sup, sidelie & standing). 01/23/22: added step ups, band walk, fig 4 stretching 2 positions and self massage using ball on wall, effective feedback. 01/31/22: added resisted clamshell. LTG Duration 03/25/22 (01/31/22: Progressed) Assessment Summary Assessment Pt improved for side hip abd with cue kick back then lift, added seated B hip ER and IR against resistance on L, unable on R due to limited ROM , recommended continued supine hip ER stretching. Pt good understanding pool ex HEP for visit at sister's to apply in water. Physical Therapy Plan Frequency and Duration Frequency of Treatment 2x/Week Plan of Care Start Date 12/25/21 Plan of Care End Date 03/25/22 Therapeutic Interventions Therapeutic Interventions Balance Training,Gait Training ,Home Exercise Program,Joint Mobilizations,Manual Therapy, Neuromuscular Re-education, Patient/Caregiver Education, Self-Care/Home Management,Soft Tissue Mobilization, Therapeutic Exercises Modalities Cold Pack/Ice Massage,Hot Packs Next Visit Focus/Plan Next Note Type Treatment Note Next Visit Plan Recheck hip ext prone, seated hip IR/ ER TB vs AROM. Check how responded to pool ex for visit at [place]. Continue focus: hip strengthening in areas of weakness (gayle hip AB, R Ext/ER & Gayle hip IR (L>R)), to assist normalizing gait and balance. Balance hurdles, next tx add sport cord. Add unilateral shuttle recovery next tx if not limited on R due to hip pain. POC: Gait training mirror with SPC/trekpole on level and uneven ground, jamie stepping . Assess on/off floor. Assess and issue HEP for limited mobility (jordan hip ER piriformis). HEP: Hip ROM Balance training & HEP
--- NOTE | 2022-02-14 17:07 | PT.OTN ---
Current Diagnoses Muscle weakness (generalized) (02/14/22) Other abnormalities of gait and mobility (02/14/22) Unspecified fall, initial encounter (02/14/22) Activity, other involving muscle strengthening exercises (02/14/22) Physical Therapy Treatment Note PT-OP-A Visit Information Start: 12/21/21 18:19 Freq: Status: Active Protocol: Document 02/14/22 13:00 LRN (Rec: 02/14/22 13:50 LRN [id number]) Out-Patient Physical Therapy Visit Information Visit Information Visit Type Treatment Note Visit Start Time 13:00 Visit Stop Time 13:45 Total Visit Minutes 45 Visit Number 13 Evaluation Information Evaluation Date 12/25/21 Precautions Precautions Bilateral mastectomy - 2 yrs ago and had a small prosthesis added, and still taking cancer medication but no signs of cancer currently, uncontrolled blood pressure. PT-OP-B Current Condition Start: 12/21/21 18:19 Freq: Status: Active Protocol: Document 12/25/21 11:20 LRN (Rec: 12/25/21 12:37 LRN [id number]) Current Condition History of Current Condition Onset Date 4 months ago dizziness Current Complaints Weakness of the legs, fear of falling downstairs, sometimes balance problem History of Current Condition 3 months ago when waking the room was swimming. Dizziness went away and just the past 2 weeks ago it started again. Pt also notes after bending over (one event) to pick something up she had an episode of [facility] room spinning. She has not had any other experiences since that time. Last summer her kids noticed she was starting to hold onto things. She was not able to go down stairs without hanging onto the house. States she needed to hang onto something going down stairs due to weakness of the legs and fear of falling down the stairs. She denies fear of falling while walking around the house . Fell last week trying to kick her L shoe off her feet and fell onto the floor. States she will now sit on her bed to remove her shoes. Tries to be careful walking on uneven ground. Prior Treatments and Tests None Treatment Goals Patient/Caregiver Goals Pt is not sure of the goal. States her physician felt she needed therapy due to her need of grabbing railings, and her recent fall trying to kick her shoes off. Prior Functional Status Baseline Function- ADL's Independent Baseline Function- Mobility Independent Baseline Function- Recreation/Hobbies Able to clean house and garden without difficulty. Current Functional Impairments (Reported) Functional Limitations- ADL's Keeps house and gardens, no problems with these activities . Functional Limitations- Mobility/Gait Ambulates with lean to the right. Personal Factors Other Personal Factors That May Effect Active with gardening, Therapy/Recovery mastectomy in 06/2019 resulting from having large breasts to small implanted breasts. PT-OP-C Subjective Start: 12/21/21 18:19 Freq: Status: Active Protocol: Document 02/14/22 13:00 LRN (Rec: 02/14/22 13:50 LRN [id number]) OP-PT Subjective Patient Comments Patient Comments Did a lot of pool ex on her trip and driving back over 2 days her back PT-OP-D Balance Start: 12/21/21 18:19 Freq: Status: Active Protocol: Document 01/01/22 12:36 LRN (Rec: 01/01/22 13:49 LRN [id number]) Brown Balance Assessment Evaluation Sitting to Standing Ability Independent w/out Hands Sitting Unsupported, Feet on Floor Safely- 2 minutes Standing to Sitting Ability Safely, Minimal Hand Use Transfer Ability Safely, Minimal Hand Use Unsupported Stance- Eyes Closed Safely, 10 seconds Unsupported Stance- Eyes Open Independent, 1 minute Reaching Forward Standing Confidently, 10 inches Pick- Up Object From Floor Independent/Safe Look Behind Shoulder - Standing Shifts Weight Well Turning 360 Degrees Turns slowly, but safely Unsupported Stance, Alternating Feet on (I)- 8 Steps in 20 secs Stair Unsupported Tandem Stance Balance Lost- Step/Stand Unilateral Leg Stance Lifts Leg/Unable to Hold Total Score Brown Total Score (out of 56 points) 43 Brown Impairment Rating 20 to 39% Impaired (Score 34- 44) PT-OP-E Functional Tests Start: 12/21/21 18:19 Freq: Status: Active Protocol: Document 01/09/22 10:37 SP (Rec: 01/09/22 12:19 SP [id number]) Functional Tests Other BROWN Name of Test BROWN Score 46/56 Comment decrease SLS time, see scanned form completed. PT-OP-G Mobility & Gait Start: 12/21/21 18:19 Freq: Status: Active Protocol: Document 12/27/21 14:38 LRN (Rec: 12/27/21 15:22 LRN [id number]) Stair Climbing Evaluation Evaluation Level of Assist On Stairs Independent Devices Stair Climbing Assistive Devices Left Railing,Right Railing Technique/Endurance Stair Climbing Direction Ascend and Descend Stair Climbing Technique Step Over Step Number of Steps Climbed 4 Stair Climbing Set # Repetitions (reps) 1 Comments Stair Climbing Comments Able to go Up stairs with R railing and downstairs with R railing. Pt jumps up when leading with RLE, moderately uncontrolled when going down leading with LLE and she rotates to the R. PT-OP-J Posture/Palpation/Skin Start: 12/21/21 18:19 Freq: Status: Active Protocol: Document 12/25/21 11:20 LRN (Rec: 12/25/21 12:37 LRN [id number]) Posture Evaluation Position Standing T-Spine Posture Flattened L-Spine Posture Increased Lordosis Shoulder Posture (L) Elevated Arm Posture (L) Internally Rotated,(R) Internally Rotated Hip Posture (L) Externally Rotated,(R) Externally Rotated PT-OP-K Range of Motion Start: 12/21/21 18:19 Freq: Status: Active Protocol: Document 12/25/21 11:20 LRN (Rec: 12/25/21 12:37 LRN [id number]) Ankle and Foot Goniometric Range of Motion Ankle and Foot Right Active Ankle/Foot ROM WFL No Testing Position Supine Dorsiflexion with Knee Extended 0 Eversion 10 Left Active Ankle/Foot ROM WFL No Testing Position Supine Dorsiflexion with Knee Extended 6 Eversion 28 PT-OP-M Strength Start: 12/21/21 18:19 Freq: Status: Active Protocol: Document 02/04/22 10:33 LRN (Rec: 02/04/22 11:22 LRN [id number]) Hip Strength Hip Manual Muscle Testing Right Flexion (L2) 5 Normal Extension (S1) 3 Fair Abduction 3+ Fair+ Adduction 5 Normal External Rotation 2 Poor Internal Rotation 4 Good Comments IR is painful in hip with AROM Left Flexion (L2) 5 Normal Extension (S1) 5 Normal Abduction 3- Fair- Adduction 5 Normal External Rotation 5 Normal Internal Rotation 3 Fair Knee Strength Knee Manual Muscle Testing Right Flexion (S2) 5 Normal Extension (L3) 5 Normal Left Flexion (S2) 5 Normal Extension (L3) 5 Normal Ankle/Foot Strength Ankle and Foot Manual Muscle Testing Right Dorsiflexion (L4) 5 Normal Plantarflexion (S1) 5 Normal Inversion 5 Normal Eversion (S1) 5 Normal Left Dorsiflexion (L4) 5 Normal Plantarflexion (S1) 5 Normal Inversion 5 Normal Eversion (S1) 5 Normal PT-OP-Q Treatments Start: 12/21/21 18:19 Freq: Status: Active Protocol: Document 02/14/22 13:00 LRN (Rec: 02/14/22 13:50 LRN [id number]) Therapeutic Exercises Supine Exercises hip ER stretch Supine Exercise Name reviewed HEP: fig 4(f/b active stretch) and piriformis stretching Side right Reps/Minutes 60 each position each Comments cued depress R pelvis toward feet to increase no hip elevation compens. 2 legged hip AB Supine Exercise Name Hip AB Side bilateral Reps/Minutes 15x 2 Comments better form, TA and less no upper body recruit Sidelying Exercises Clamshell Sidelying Exercise Name Clamshell Side bilateral Resistance AROM x5 good form>TB #1loop Reps/Minutes 15 reps Comments Cuing to keep pelvis fwd while lifting knee. R weaker than L. Hip AB Sidelying Exercise Name Hip AB w/top pelvis in neutral training Side bilateral Equipment Used improved with cues Reps/Minutes x10 Comments Cued to keep pelvis neutal & hip no hip flex recruitment Sitting Exercises Hip IR strengthening Sitting Exercise Name Active hip IR Side left Reps/Minutes 15x hip ER stretch Sitting Exercise Name R leg on table in ER for stretch Resistance AAROM stretch Reps/Minutes 30 x2 Comments limited range, cued UE supported on L leg breath/ relax can apply ER gentle Standing Exercises Hip Ext Standing Exercise Name Hip Ext Side right Equipment Used Railing Reps/Minutes 15x Awareness training Standing Exercise Name R pelvis anterior rot and shift to R before sidestepping Side right Reps/Minutes 10' band walk Standing Exercise Name HEP Side bilateral Resistance TB #2 loop ( RTB inPT) Equipment Used light contact rail RUE going R only Reps/Minutes x8 laps F/b/side stepping Comments cued tall posture over LLE during RLE locomotion for level pelvis Neuro Re-Education Treatment Balance Activities Stepping over obstacles Details Fwd and Side stepping (R 2x more than L) Equipment 6 hurdles Reps/Duration x4 laps each Comments cued alignment, core with improved scap retraction able to perform without UE support for fwd walking, support needed for sidestepping. PT-OP-T Assessment and Plan Start: 12/21/21 18:19 Freq: Status: Active Protocol: Document 02/14/22 13:00 LRN (Rec: 02/14/22 13:50 LRN [id number]) Physical Therapy Assessment Goals Four Impairment Decreased balance with increased risk of falling Impairment SLS is 0 secs RLE, 1 sec LLE. TUG score is 17 secs (60<80% impaired, score 16-17) Short Term Goal (STG) Pt will be able to SLS no less than 5 secs bilaterally and TUG score 14-15 secs (50<60% impared). 01/09/22: progressing SLS 1-3 sec R and LLE; MET: TUs, 9s. 01/17/22: RLE 1-3sec, LLE 1-2 sec. 01/25/22: LLe 8 sec, 5sec; RLE 2-3 sec, 5 sec with papercup under opposite LE hovering over. 01/31/22: decreased to 2-4sec each LE but improved jamie stepping no UE support. (02/04/22: TUG is 12 secs. SLS (in Keds-type shoes): 1 sec LLE; 3 sec RLE STG Duration 02/07/22 01/31/22: progressing Care Home Goal (LTG) Improve TUG 12 secs or less ( 20<40% impaired score 12-13 secs; 1<20% impaired, score 11 ) 01/03/22: STS 1UE support 5 reps in 21sec, TU sec L UE to ascend chair, no UE descend slight plop in chair last 1. 01/09/22: GOAL MET: TUG 10s, 9s. TUG 12 secs. LTG Duration 03/25/22 (01/09/22: GOAL MET) Three Impairment Gait disturbance Impairment 01/01/22: BROWN score 43 (20-39 % impaired) 01/09/22: BROWN 46/56 Short Term Goal (STG) Pt will demonstrate appropriate use of an assistive device outside the home on unlevel surface (cane) with gait. (01/01/22: Gait training with SPC) 01/09/22: GOAL MET: able to walk on uneven incline/decline grass using trek pole appropriate in RUE patterning with LLE, decrease stance time on LLE noted but safe/ stable . STG Duration 01/11/22 (01/09/22: GOAL MET) Broommaker Goal (LTG) Ability to walk on uneven surface (yard/garden) without fear of falling with a cane. (01/01/22: Gait training with SPC) 01/09/22: GOAL MET: able to walk out on lawn using wheelbarrel or gardening bag in 1 had and trek pole in other over the weekend without fear of falling. LTG Duration 03/25/22 (01/09/22: GOAL MET) Two Impairment LE weaknesss Short Term Goal (STG) Able to sit to coordinating producer a contolled manner without use of arms and equal WBing through the legs. 01/09/22: PRogressing: needs to use 1 UE 30% effort to come to stand. 01/17/22: progressin% 1 UE support come to stand, no UE descend,cued slow hip hinge complete to no flop last 1. Slow pacing, pause full stand and sit, 5 reps in 27s. 14s, little flop at bottom sit. 01/23/22: pt reports can perform 6 STS without UE support but needs 1 UE for 7th due to tiring. (02/04/22: Able to stand normal; sitting WB's more on LLE due to R hip pain). STG Duration 01/25/22 (02/04/22: MET GOAL) Care Home Goal (LTG) Increase hip AB/flex/Ext; knee margarito knee flex & R knee ext, & ankle strength 1 grade (4/5). (02/04/22: Margarito Knee and ankle strength is 5/5; Hip strength is decreased - see MMT above for hip) LTG Duration 03/25/22 (02/04/22: Partially met goal) One Impairment Lacks appropriate self care HEP Care Home Goal (LTG) Pt will be independent with a self care HEP. (12/27/21: HEP: Ankle DF in sit & stand and sitting ankle EV strengthening) (01/01/22: HEP: Gastroc & Soleus Stretch) 01/03/22: seated hip abd and ankle EV/PF/DF TB strengthening. (01/11/22: Added HEP: Hip AB in sup, sidelie & standing). 01/23/22: added step ups, band walk, fig 4 stretching 2 positions and self massage using ball on wall, effective feedback. 01/31/22: added resisted clamshell. LTG Duration 03/25/22 (01/31/22: Progressed) Assessment Summary Assessment Pt appeared to have done well with pool ex's but had increase in back pain from prolonged sitting on car ride back home. Pt's R Glut Med is weaker than L. In sidelie not able to lift as high on R while keeping pelvis stable. Sitting, pt needed assist with active hip ER due to limited mobility & L hip IR is limited in mobility. Physical Therapy Plan Frequency and Duration Frequency of Treatment 2x/Week Plan of Care Start Date 12/25/21 Plan of Care End Date 03/25/22 Next Visit Focus/Plan Next Note Type Treatment Note Next Visit Plan Review seated R hip ER stretch /strengthening and L hip IR stretch/strengthening. Focus: Balance: hurdles, add sport cord work. Add unilateral shuttle recovery next tx if not limited on R due to hip pain. Gait training mirror with SPC/ trekpole on level and uneven ground, jamie stepping. Continue: hip strengthening in areas of weakness (margarito hip AB , R Ext/ER & Margarito hip IR (L>R)) , to assist normalizing gait and balance. POC: Assess on/off floor. Balance training w/HEP
--- NOTE | 2022-02-19 14:59 | PT.OTN ---
Current Diagnoses Muscle weakness (generalized) (02/19/22) Other abnormalities of gait and mobility (02/19/22) Unspecified fall, initial encounter (02/19/22) Activity, other involving muscle strengthening exercises (02/19/22) Physical Therapy Treatment Note PT-OP-A Visit Information Start: 12/21/21 18:19 Freq: Status: Active Protocol: Document 02/19/22 13:49 LRN (Rec: 02/19/22 14:57 LRN [id number]) Out-Patient Physical Therapy Visit Information Visit Information Visit Type Treatment Note Visit Start Time 13:49 Visit Stop Time 14:29 Total Visit Minutes 40 Visit Number 14 Evaluation Information Evaluation Date 12/25/21 Precautions Precautions Bilateral mastectomy - 2 yrs ago and had a small prosthesis added, and still taking cancer medication but no signs of cancer currently, uncontrolled blood pressure. PT-OP-B Current Condition Start: 12/21/21 18:19 Freq: Status: Active Protocol: Document 12/25/21 11:20 LRN (Rec: 12/25/21 12:37 LRN [id number]) Current Condition History of Current Condition Onset Date 4 months ago dizziness Current Complaints Weakness of the legs, fear of falling downstairs, sometimes balance problem History of Current Condition 3 months ago when waking the room was swimming. Dizziness went away and just the past 2 weeks ago it started again. Pt also notes after bending over (one event) to pick something up she had an episode of sera room spinning. She has not had any other experiences since that time. Last summer her kids noticed she was starting to hold onto things. She was not able to go down stairs without hanging onto the house. States she needed to hang onto something going down stairs due to weakness of the legs and fear of falling down the stairs. She denies fear of falling while walking around the house . Fell last week trying to kick her L shoe off her feet and fell onto the floor. States she will now sit on her bed to remove her shoes. Tries to be careful walking on uneven ground. Prior Treatments and Tests None Treatment Goals Patient/Caregiver Goals Pt is not sure of the goal. States her physician felt she needed therapy due to her need of grabbing railings, and her recent fall trying to kick her shoes off. Prior Functional Status Baseline Function- ADL's Independent Baseline Function- Mobility Independent Baseline Function- Recreation/Hobbies Able to clean house and garden without difficulty. Current Functional Impairments (Reported) Functional Limitations- ADL's Keeps house and gardens, no problems with these activities . Functional Limitations- Mobility/Gait Ambulates with lean to the right. Personal Factors Other Personal Factors That May Effect Active with gardening, Therapy/Recovery mastectomy in 06/2019 resulting from having large breasts to small implanted breasts. PT-OP-C Subjective Start: 12/21/21 18:19 Freq: Status: Active Protocol: Document 02/19/22 13:49 LRN (Rec: 02/19/22 14:57 LRN [id number]) OP-PT Subjective Patient Comments Patient Comments Reports no R thigh pain walking after gait training when taking short steps and controls core with SLS phase of gait. PT-OP-D Balance Start: 12/21/21 18:19 Freq: Status: Active Protocol: Document 01/01/22 12:36 LRN (Rec: 01/01/22 13:49 LRN [id number]) Brown Balance Assessment Evaluation Sitting to Standing Ability Independent w/out Hands Sitting Unsupported, Feet on Floor Safely- 2 minutes Standing to Sitting Ability Safely, Minimal Hand Use Transfer Ability Safely, Minimal Hand Use Unsupported Stance- Eyes Closed Safely, 10 seconds Unsupported Stance- Eyes Open Independent, 1 minute Reaching Forward Standing Confidently, 10 inches Pick- Up Object From Floor Independent/Safe Look Behind Shoulder - Standing Shifts Weight Well Turning 360 Degrees Turns slowly, but safely Unsupported Stance, Alternating Feet on (I)- 8 Steps in 20 secs Stair Unsupported Tandem Stance Balance Lost- Step/Stand Unilateral Leg Stance Lifts Leg/Unable to Hold Total Score Brown Total Score (out of 56 points) 43 Brown Impairment Rating 20 to 39% Impaired (Score 34- 44) PT-OP-E Functional Tests Start: 12/21/21 18:19 Freq: Status: Active Protocol: Document 01/09/22 10:37 SP (Rec: 01/09/22 12:19 SP [id number]) Functional Tests Other BROWN Name of Test BROWN Score 46/56 Comment decrease SLS time, see scanned form completed. PT-OP-G Mobility & Gait Start: 12/21/21 18:19 Freq: Status: Active Protocol: Document 12/27/21 14:38 LRN (Rec: 12/27/21 15:22 LRN [id number]) Stair Climbing Evaluation Evaluation Level of Assist On Stairs Independent Devices Stair Climbing Assistive Devices Left Railing,Right Railing Technique/Endurance Stair Climbing Direction Ascend and Descend Stair Climbing Technique Step Over Step Number of Steps Climbed 4 Stair Climbing Set # Repetitions (reps) 1 Comments Stair Climbing Comments Able to go Up stairs with R railing and downstairs with R railing. Pt jumps up when leading with RLE, moderately uncontrolled when going down leading with LLE and she rotates to the R. PT-OP-J Posture/Palpation/Skin Start: 12/21/21 18:19 Freq: Status: Active Protocol: Document 12/25/21 11:20 LRN (Rec: 12/25/21 12:37 LRN [id number]) Posture Evaluation Position Standing T-Spine Posture Flattened L-Spine Posture Increased Lordosis Shoulder Posture (L) Elevated Arm Posture (L) Internally Rotated,(R) Internally Rotated Hip Posture (L) Externally Rotated,(R) Externally Rotated PT-OP-K Range of Motion Start: 12/21/21 18:19 Freq: Status: Active Protocol: Document 12/25/21 11:20 LRN (Rec: 12/25/21 12:37 LRN [id number]) Ankle and Foot Goniometric Range of Motion Ankle and Foot Right Active Ankle/Foot ROM WFL No Testing Position Supine Dorsiflexion with Knee Extended 0 Eversion 10 Left Active Ankle/Foot ROM WFL No Testing Position Supine Dorsiflexion with Knee Extended 6 Eversion 28 PT-OP-M Strength Start: 12/21/21 18:19 Freq: Status: Active Protocol: Document 02/04/22 10:33 LRN (Rec: 02/04/22 11:22 LRN [id number]) Hip Strength Hip Manual Muscle Testing Right Flexion (L2) 5 Normal Extension (S1) 3 Fair Abduction 3+ Fair+ Adduction 5 Normal External Rotation 2 Poor Internal Rotation 4 Good Comments IR is painful in hip with AROM Left Flexion (L2) 5 Normal Extension (S1) 5 Normal Abduction 3- Fair- Adduction 5 Normal External Rotation 5 Normal Internal Rotation 3 Fair Knee Strength Knee Manual Muscle Testing Right Flexion (S2) 5 Normal Extension (L3) 5 Normal Left Flexion (S2) 5 Normal Extension (L3) 5 Normal Ankle/Foot Strength Ankle and Foot Manual Muscle Testing Right Dorsiflexion (L4) 5 Normal Plantarflexion (S1) 5 Normal Inversion 5 Normal Eversion (S1) 5 Normal Left Dorsiflexion (L4) 5 Normal Plantarflexion (S1) 5 Normal Inversion 5 Normal Eversion (S1) 5 Normal PT-OP-Q Treatments Start: 12/21/21 18:19 Freq: Status: Active Protocol: Document 02/19/22 13:49 LRN (Rec: 02/19/22 14:57 LRN [id number]) Therapeutic Exercises Sitting Exercises Hip IR strengthening Sitting Exercise Name Active hip IR Side left Reps/Minutes 15x 2 hip IR, ER T Sitting Exercise Name Active Hip ER (sliding lateral ankle up opp dodge) Side right Equipment Used Lev 1 TB Reps/Minutes 10x 3 hip ER, 10x sliding ankle up opp dodge, hip ER stretch Sitting Exercise Name R leg on table in ER for stretch, f/b active stretch Resistance AAROM stretch Reps/Minutes 30 x2 Comments limited range, cued UE supported on L leg breath/ relax can apply ER gentle Standing Exercises Glut medius sidestepping Standing Exercise Name Bent knee side stepping Side bilateral Reps/Minutes 5' Hip Ext Standing Exercise Name Hip Ext Side bilateral Equipment Used Railing for phys cue for neutral pelvic positioning Reps/Minutes 15x Hip AB Standing Exercise Name Sidesteping: Hip AB- L hip abd weakness Side bilateral Reps/Minutes 5' Comments cued upright posture, TA neutral (pelvic cuing to correct for a L rot) Gait Training Gait Activity Gait on unlevel surface Description Motor relearning Device Used // bars Level of Assistance v cuing Surface level Treatment Focus Normal walk mechanics Comments Starting wgt shift/trunk control > opp side: heel lift/ toe touch> opp side slight lift> opp side foot lift> opp side step> walk. Cuing for normal pelvic/trunk control/ posture for normal gait. PT-OP-T Assessment and Plan Start: 12/21/21 18:19 Freq: Status: Active Protocol: Document 02/19/22 13:49 LRN (Rec: 02/19/22 14:57 LRN [id number]) Physical Therapy Assessment Goals Four Impairment Decreased balance with increased risk of falling Impairment SLS is 0 secs RLE, 1 sec LLE. TUG score is 17 secs (60<80% impaired, score 16-17) Short Term Goal (STG) Pt will be able to SLS no less than 5 secs bilaterally and TUG score 14-15 secs (50<60% impared). 01/09/22: progressing SLS 1-3 sec R and LLE; MET: TUs, 9s. 01/17/22: RLE 1-3sec, LLE 1-2 sec. 01/25/22: LLe 8 sec, 5sec; RLE 2-3 sec, 5 sec with papercup under opposite LE hovering over. 01/31/22: decreased to 2-4sec each LE but improved jamie stepping no UE support. (02/04/22: TUG is 12 secs. SLS (in Keds-type shoes): 1 sec LLE; 3 sec RLE STG Duration 02/07/22 01/31/22: progressing Territory Sales Professional Goal (LTG) Improve TUG 12 secs or less ( 20<40% impaired score 12-13 secs; 1<20% impaired, score 11 ) 01/03/22: STS 1UE support 5 reps in 21sec, TU sec L UE to ascend chair, no UE descend slight plop in chair last 1. 01/09/22: GOAL MET: TUG 10s, 9s. TUG 12 secs. LTG Duration 03/25/22 (01/09/22: GOAL MET) Two Impairment LE weaknesss Short Term Goal (STG) Able to sit to reliability engineer a contolled manner without use of arms and equal WBing through the legs. 01/09/22: PRogressing: needs to use 1 UE 30% effort to come to stand. 01/17/22: progressin% 1 UE support come to stand, no UE descend,cued slow hip hinge complete to no flop last 1. Slow pacing, pause full stand and sit, 5 reps in 27s. 14s, little flop at bottom sit. 01/23/22: pt reports can perform 6 STS without UE support but needs 1 UE for 7th due to tiring. (02/04/22: Able to stand normal; sitting WB's more on LLE due to R hip pain). STG Duration 01/25/22 (02/04/22: MET GOAL) Residential Goal (LTG) Increase hip AB/flex/Ext; knee margarito knee flex & R knee ext, & ankle strength 1 grade (4/5). (02/04/22: Margarito Knee and ankle strength is 5/5; Hip strength is decreased: R Ext/AB/ER>IR; L AB/IR) LTG Duration 03/25/22 (02/04/22: Partially met goal) One Impairment Lacks appropriate self care HEP Territory Sales Professional Goal (LTG) Pt will be independent with a self care HEP. (12/27/21: HEP: Ankle DF in sit & stand and sitting ankle EV strengthening) (01/01/22: HEP: Gastroc & Soleus Stretch) 01/03/22: seated hip abd and ankle EV/PF/DF TB strengthening. (01/11/22: Added HEP: Hip AB in sup, sidelie & standing). 01/23/22: added step ups, band walk, fig 4 stretching 2 positions and self massage using ball on wall, effective feedback. 01/31/22: added resisted clamshell. LTG Duration 03/25/22 (01/31/22: Progressed) Assessment Summary Assessment Pt much improved with hip/core control for gait with much less trunk sway with gait after therapy. Anteriorly pt appears to have adequate R pelvic shift with gait, but posteriorly appears to have very little shift. No pain in R thigh with R wgt shift/L stepping when pt controls core and limits trunk R SB. Physical Therapy Plan Frequency and Duration Frequency of Treatment 2x/Week Plan of Care Start Date 12/25/21 Plan of Care End Date 03/25/22 Next Visit Focus/Plan Next Note Type Treatment Note Next Visit Plan Assess on/off floor, training as needed. Cont seated R hip ER stretch> active stretch/strengthening, and L hip IR stretch/ strengthening. Hip strengthening in areas of weakness (margarito hip AB, R Ext/ER & Margarito hip IR (L>R)), to assist normalizing gait and balance. HEP: Balance. Focus: Balance SLS: hurdles, Add: sport cord work for SLS balance and add unilateral shuttle recovery next tx if not limited on R hip pain. Gait training: uneven ground. If needed with mirror using SPC/trekpole.
--- NOTE | 2022-02-21 13:50 | PT.OTN ---
Current Diagnoses Muscle weakness (generalized) (02/21/22) Other abnormalities of gait and mobility (02/21/22) Unspecified fall, initial encounter (02/21/22) Activity, other involving muscle strengthening exercises (02/21/22) Physical Therapy Treatment Note PT-OP-A Visit Information Start: 12/21/21 18:19 Freq: Status: Active Protocol: Document 02/21/22 13:07 SP (Rec: 02/21/22 14:05 SP [id number]) Out-Patient Physical Therapy Visit Information Visit Information Visit Type Treatment Note Visit Start Time 13:07 Visit Stop Time 13:50 Total Visit Minutes 43 Visit Number 15 Number of SLITTER CREASER SLOTTER HELPER Visits 1 Evaluation Information Evaluation Date 12/25/21 Precautions Precautions Bilateral mastectomy - 2 yrs ago and had a small prosthesis added, and still taking cancer medication but no signs of cancer currently, uncontrolled blood pressure. PT-OP-B Current Condition Start: 12/21/21 18:19 Freq: Status: Active Protocol: Document 12/25/21 11:20 LRN (Rec: 12/25/21 12:37 LRN [id number]) Current Condition History of Current Condition Onset Date 4 months ago dizziness Current Complaints Weakness of the legs, fear of falling downstairs, sometimes balance problem History of Current Condition 3 months ago when waking the room was swimming. Dizziness went away and just the past 2 weeks ago it started again. Pt also notes after bending over (one event) to pick something up she had an episode of [facility] room spinning. She has not had any other experiences since that time. Last summer her kids noticed she was starting to hold onto things. She was not able to go down stairs without hanging onto the house. States she needed to hang onto something going down stairs due to weakness of the legs and fear of falling down the stairs. She denies fear of falling while walking around the house . Fell last week trying to kick her L shoe off her feet and fell onto the floor. States she will now sit on her bed to remove her shoes. Tries to be careful walking on uneven ground. Prior Treatments and Tests None Treatment Goals Patient/Caregiver Goals Pt is not sure of the goal. States her physician felt she needed therapy due to her need of grabbing railings, and her recent fall trying to kick her shoes off. Prior Functional Status Baseline Function- ADL's Independent Baseline Function- Mobility Independent Baseline Function- Recreation/Hobbies Able to clean house and garden without difficulty. Current Functional Impairments (Reported) Functional Limitations- ADL's Keeps house and gardens, no problems with these activities . Functional Limitations- Mobility/Gait Ambulates with lean to the right. Personal Factors Other Personal Factors That May Effect Active with gardening, Therapy/Recovery mastectomy in 06/2019 resulting from having large breasts to small implanted breasts. PT-OP-C Subjective Start: 12/21/21 18:19 Freq: Status: Active Protocol: Document 02/21/22 13:07 SP (Rec: 02/21/22 14:05 SP [id number]) OP-PT Subjective Patient Comments Patient Comments Pt reports having continued hip pain but overall seeing progress. Found change of chairs for proper alignment better seated. Pt states exercises getting easy and will be able to perform even after done with PT but not ready for DC yet. PT-OP-D Balance Start: 12/21/21 18:19 Freq: Status: Active Protocol: Document 01/01/22 12:36 LRN (Rec: 01/01/22 13:49 LRN [id number]) Brown Balance Assessment Evaluation Sitting to Standing Ability Independent w/out Hands Sitting Unsupported, Feet on Floor Safely- 2 minutes Standing to Sitting Ability Safely, Minimal Hand Use Transfer Ability Safely, Minimal Hand Use Unsupported Stance- Eyes Closed Safely, 10 seconds Unsupported Stance- Eyes Open Independent, 1 minute Reaching Forward Standing Confidently, 10 inches Pick- Up Object From Floor Independent/Safe Look Behind Shoulder - Standing Shifts Weight Well Turning 360 Degrees Turns slowly, but safely Unsupported Stance, Alternating Feet on (I)- 8 Steps in 20 secs Stair Unsupported Tandem Stance Balance Lost- Step/Stand Unilateral Leg Stance Lifts Leg/Unable to Hold Total Score Brown Total Score (out of 56 points) 43 Brown Impairment Rating 20 to 39% Impaired (Score 34- 44) PT-OP-E Functional Tests Start: 12/21/21 18:19 Freq: Status: Active Protocol: Document 02/21/22 13:07 SP (Rec: 02/21/22 14:05 SP [id number]) Functional Tests Other BROWN Score 50/56 Comment decrease SLS time 3sec R, 1sec L, see scanned form completed . PT-OP-G Mobility & Gait Start: 12/21/21 18:19 Freq: Status: Active Protocol: Document 12/27/21 14:38 LRN (Rec: 12/27/21 15:22 LRN [id number]) Stair Climbing Evaluation Evaluation Level of Assist On Stairs Independent Devices Stair Climbing Assistive Devices Left Railing,Right Railing Technique/Endurance Stair Climbing Direction Ascend and Descend Stair Climbing Technique Step Over Step Number of Steps Climbed 4 Stair Climbing Set # Repetitions (reps) 1 Comments Stair Climbing Comments Able to go Up stairs with R railing and downstairs with R railing. Pt jumps up when leading with RLE, moderately uncontrolled when going down leading with LLE and she rotates to the R. PT-OP-J Posture/Palpation/Skin Start: 12/21/21 18:19 Freq: Status: Active Protocol: Document 12/25/21 11:20 LRN (Rec: 12/25/21 12:37 LRN [id number]) Posture Evaluation Position Standing T-Spine Posture Flattened L-Spine Posture Increased Lordosis Shoulder Posture (L) Elevated Arm Posture (L) Internally Rotated,(R) Internally Rotated Hip Posture (L) Externally Rotated,(R) Externally Rotated PT-OP-K Range of Motion Start: 12/21/21 18:19 Freq: Status: Active Protocol: Document 12/25/21 11:20 LRN (Rec: 12/25/21 12:37 LRN [id number]) Ankle and Foot Goniometric Range of Motion Ankle and Foot Right Active Ankle/Foot ROM WFL No Testing Position Supine Dorsiflexion with Knee Extended 0 Eversion 10 Left Active Ankle/Foot ROM WFL No Testing Position Supine Dorsiflexion with Knee Extended 6 Eversion 28 PT-OP-M Strength Start: 12/21/21 18:19 Freq: Status: Active Protocol: Document 02/04/22 10:33 LRN (Rec: 02/04/22 11:22 LRN [id number]) Hip Strength Hip Manual Muscle Testing Right Flexion (L2) 5 Normal Extension (S1) 3 Fair Abduction 3+ Fair+ Adduction 5 Normal External Rotation 2 Poor Internal Rotation 4 Good Comments IR is painful in hip with AROM Left Flexion (L2) 5 Normal Extension (S1) 5 Normal Abduction 3- Fair- Adduction 5 Normal External Rotation 5 Normal Internal Rotation 3 Fair Knee Strength Knee Manual Muscle Testing Right Flexion (S2) 5 Normal Extension (L3) 5 Normal Left Flexion (S2) 5 Normal Extension (L3) 5 Normal Ankle/Foot Strength Ankle and Foot Manual Muscle Testing Right Dorsiflexion (L4) 5 Normal Plantarflexion (S1) 5 Normal Inversion 5 Normal Eversion (S1) 5 Normal Left Dorsiflexion (L4) 5 Normal Plantarflexion (S1) 5 Normal Inversion 5 Normal Eversion (S1) 5 Normal PT-OP-Q Treatments Start: 12/21/21 18:19 Freq: Status: Active Protocol: Document 02/21/22 13:07 SP (Rec: 02/21/22 14:05 SP [id number]) Therapeutic Exercises Sidelying Exercises reverse clamshell Sidelying Exercise Name added to HEP Side bilateral Equipment Used pillow between B knees Reps/Minutes x10 Comments good feedback muscle tiring painfree Clamshell Sidelying Exercise Name Clamshell Side bilateral Resistance AROM x10, pain after few reps 2nd set Equipment Used pillow between B knees Reps/Minutes 15 reps Comments R weaker than L. Standing Exercises Glut medius sidestepping Standing Exercise Name Bent knee side stepping Side bilateral Resistance AROM, unsupported Reps/Minutes 20 ft x2 laps Comments cued core fac and alignment conscious awareness for no SB, improved Step ups/downs Standing Exercise Name lateral step ups bottom step Side bilateral Resistance AROM Equipment Used 8 step, 1 HR light LLE, Min BUE support on rail RLE Reps/Minutes 10x each side Comments low pain R hip initial step then better more muscle tiring . Self-Care/Home Management Treatment Education Patient Education Home Exercise Program Other Education added review reverse clamshell and lateral step ups. PT-OP-T Assessment and Plan Start: 12/21/21 18:19 Freq: Status: Active Protocol: Document 02/21/22 13:07 SP (Rec: 02/21/22 14:05 SP [id number]) Physical Therapy Assessment Goals Four Impairment Decreased balance with increased risk of falling Impairment SLS is 0 secs RLE, 1 sec LLE. TUG score is 17 secs (60<80% impaired, score 16-17) Short Term Goal (STG) Pt will be able to SLS no less than 5 secs bilaterally and TUG score 14-15 secs (50<60% impared). 6/1/22: progressing SLS 1-3 sec R and LLE; MET: TUs, 9s. 01/17/22: RLE 1-3sec, LLE 1-2 sec. 01/25/22: LLe 8 sec, 5sec; RLE 2-3 sec, 5 sec with papercup under opposite LE hovering over. 01/31/22: decreased to 2-4sec each LE but improved jamie stepping no UE support. (02/04/22: TUG is 12 secs. SLS (in Keds-type shoes): 1 sec LLE; 3 sec RLE 02/21/22: SLS LLE 3 sec, RLE 1 sec. STG Duration 02/07/22 02/21/22: progressing Residential Goal (LTG) Improve TUG 12 secs or less ( 20<40% impaired score 12-13 secs; 1<20% impaired, score 11 ) 01/03/22: STS 1UE support 5 reps in 21sec, TU sec L UE to ascend chair, no UE descend slight plop in chair last 1. 01/09/22: GOAL MET: TUG 10s, 9s. TUG 12 secs. LTG Duration 03/25/22 (01/09/22: GOAL MET) Two Impairment LE weaknesss Short Term Goal (STG) Able to sit to train gateman a contolled manner without use of arms and equal WBing through the legs. 01/09/22: PRogressing: needs to use 1 UE 30% effort to come to stand. 01/17/22: progressin% 1 UE support come to stand, no UE descend,cued slow hip hinge complete to no flop last 1. Slow pacing, pause full stand and sit, 5 reps in 27s. 14s, little flop at bottom sit. 01/23/22: pt reports can perform 6 STS without UE support but needs 1 UE for 7th due to tiring. (02/04/22: Able to stand normal; sitting WB's more on LLE due to R hip pain). STG Duration 01/25/22 (02/04/22: MET GOAL) Timber Management Professor Goal (LTG) Increase hip AB/flex/Ext; knee margarito knee flex & R knee ext, & ankle strength 1 grade (4/5). (02/04/22: Margarito Knee and ankle strength is 5/5; Hip strength is decreased: R Ext/AB/ER>IR; L AB/IR) 02/21/22: added reverse clamshell and side step ups. LTG Duration 03/25/22 (02/21/22: Partially met goal) One Impairment Lacks appropriate self care HEP Timber Management Professor Goal (LTG) Pt will be independent with a self care HEP. (12/27/21: HEP: Ankle DF in sit & stand and sitting ankle EV strengthening) (01/01/22: HEP: Gastroc & Soleus Stretch) 01/03/22: seated hip abd and ankle EV/PF/DF TB strengthening. (01/11/22: Added HEP: Hip AB in sup, sidelie & standing). 01/23/22: added step ups, band walk, fig 4 stretching 2 positions and self massage using ball on wall, effective feedback. 01/31/22: added resisted clamshell. LTG Duration 03/25/22 (01/31/22: Progressed) Progress Towards Goals Progress Towards Goals Progressing Toward Goals Progress Comments Improved BROWN 46/56 last tested to 50/56 today. Assessment Summary Assessment Pt responded well to limit clamshell to 1 set and added reverse clamshell and lateral step ups with support of rail needed, reported muscle tiring work vs pain experiences with 2nd set clamshell, instructed delete 2nd set for painfree strengthening. Pt improved less SB leaving, states is thinking about it though. Physical Therapy Plan Frequency and Duration Frequency of Treatment 2x/Week Plan of Care Start Date 12/25/21 Plan of Care End Date 03/25/22 Therapeutic Interventions Therapeutic Interventions Balance Training,Gait Training ,Home Exercise Program,Joint Mobilizations,Manual Therapy, Neuromuscular Re-education, Patient/Caregiver Education, Self-Care/Home Management,Soft Tissue Mobilization, Therapeutic Exercises Modalities Cold Pack/Ice Massage,Hot Packs Next Visit Focus/Plan Next Note Type Treatment Note Next Visit Plan Assess on/off floor, training as needed. Cont seated R hip ER stretch> active stretch/strengthening, and L hip IR stretch/ strengthening. Hip strengthening in areas of weakness (margarito hip AB, R Ext/ER & Margarito hip IR (L>R)), to assist normalizing gait and balance. HEP: Balance. Focus: Balance SLS: hurdles, Add: sport cord work for SLS balance and add unilateral shuttle recovery next tx if not limited on R hip pain. Gait training: uneven ground. If needed with mirror using SPC/trekpole.
--- NOTE | 2022-02-25 14:33 | PT.OTN ---
Current Diagnoses Muscle weakness (generalized) (02/25/22) Other abnormalities of gait and mobility (02/25/22) Unspecified fall, initial encounter (02/25/22) Activity, other involving muscle strengthening exercises (02/25/22) Physical Therapy Treatment Note PT-OP-A Visit Information Start: 12/21/21 18:19 Freq: Status: Active Protocol: Document 02/25/22 13:48 LRN (Rec: 02/25/22 14:32 LRN [id number]) Out-Patient Physical Therapy Visit Information Visit Information Visit Type Treatment Note Visit Start Time 13:49 Visit Stop Time 14:27 Total Visit Minutes 38 Visit Number 16 Evaluation Information Evaluation Date 12/25/21 Precautions Precautions Bilateral mastectomy - 2 yrs ago and had a small prosthesis added, and still taking cancer medication but no signs of cancer currently, uncontrolled blood pressure. PT-OP-B Current Condition Start: 12/21/21 18:19 Freq: Status: Active Protocol: Document 12/25/21 11:20 LRN (Rec: 12/25/21 12:37 LRN [id number]) Current Condition History of Current Condition Onset Date 4 months ago dizziness Current Complaints Weakness of the legs, fear of falling downstairs, sometimes balance problem History of Current Condition 3 months ago when waking the room was swimming. Dizziness went away and just the past 2 weeks ago it started again. Pt also notes after bending over (one event) to pick something up she [facility]. She has not had any other experiences since that time. Last summer her kids noticed she was starting to hold onto things. She was not able to go down stairs without hanging onto the house. States she needed to hang onto something going down stairs due to weakness of the legs and fear of falling down the stairs. She denies fear of falling while walking around the house . Fell last week trying to kick her L shoe off her feet and fell onto the floor. States she will now sit on her bed to remove her shoes. Tries to be careful walking on uneven ground. Prior Treatments and Tests None Treatment Goals Patient/Caregiver Goals Pt is not sure of the goal. States her physician felt she needed therapy due to her need of grabbing railings, and her recent fall trying to kick her shoes off. Prior Functional Status Baseline Function- ADL's Independent Baseline Function- Mobility Independent Baseline Function- Recreation/Hobbies Able to clean house and garden without difficulty. Current Functional Impairments (Reported) Functional Limitations- ADL's Keeps house and gardens, no problems with these activities . Functional Limitations- Mobility/Gait Ambulates with lean to the right. Personal Factors Other Personal Factors That May Effect Active with gardening, Therapy/Recovery mastectomy in 06/2019 resulting from having large breasts to small implanted breasts. PT-OP-C Subjective Start: 12/21/21 18:19 Freq: Status: Active Protocol: Document 02/25/22 13:48 LRN (Rec: 02/25/22 14:32 LRN [id number]) OP-PT Subjective Patient Comments Patient Comments PT states getting up/down from floor is something she can do so she doesn't need to work on it. PT-OP-D Balance Start: 12/21/21 18:19 Freq: Status: Active Protocol: Document 01/01/22 12:36 LRN (Rec: 01/01/22 13:49 LRN [id number]) Brown Balance Assessment Evaluation Sitting to Standing Ability Independent w/out Hands Sitting Unsupported, Feet on Floor Safely- 2 minutes Standing to Sitting Ability Safely, Minimal Hand Use Transfer Ability Safely, Minimal Hand Use Unsupported Stance- Eyes Closed Safely, 10 seconds Unsupported Stance- Eyes Open Independent, 1 minute Reaching Forward Standing Confidently, 10 inches Pick- Up Object From Floor Independent/Safe Look Behind Shoulder - Standing Shifts Weight Well Turning 360 Degrees Turns slowly, but safely Unsupported Stance, Alternating Feet on (I)- 8 Steps in 20 secs Stair Unsupported Tandem Stance Balance Lost- Step/Stand Unilateral Leg Stance Lifts Leg/Unable to Hold Total Score Brown Total Score (out of 56 points) 43 Brown Impairment Rating 20 to 39% Impaired (Score 34- 44) PT-OP-E Functional Tests Start: 12/21/21 18:19 Freq: Status: Active Protocol: Document 02/21/22 13:07 SP (Rec: 02/21/22 14:05 SP [id number]) Functional Tests Other BROWN Score 50/56 Comment decrease SLS time 3sec R, 1sec L, see scanned form completed . PT-OP-G Mobility & Gait Start: 12/21/21 18:19 Freq: Status: Active Protocol: Document 12/27/21 14:38 LRN (Rec: 12/27/21 15:22 LRN [id number]) Stair Climbing Evaluation Evaluation Level of Assist On Stairs Independent Devices Stair Climbing Assistive Devices Left Railing,Right Railing Technique/Endurance Stair Climbing Direction Ascend and Descend Stair Climbing Technique Step Over Step Number of Steps Climbed 4 Stair Climbing Set # Repetitions (reps) 1 Comments Stair Climbing Comments Able to go Up stairs with R railing and downstairs with R railing. Pt jumps up when leading with RLE, moderately uncontrolled when going down leading with LLE and she rotates to the R. PT-OP-J Posture/Palpation/Skin Start: 12/21/21 18:19 Freq: Status: Active Protocol: Document 12/25/21 11:20 LRN (Rec: 12/25/21 12:37 LRN [id number]) Posture Evaluation Position Standing T-Spine Posture Flattened L-Spine Posture Increased Lordosis Shoulder Posture (L) Elevated Arm Posture (L) Internally Rotated,(R) Internally Rotated Hip Posture (L) Externally Rotated,(R) Externally Rotated PT-OP-K Range of Motion Start: 12/21/21 18:19 Freq: Status: Active Protocol: Document 12/25/21 11:20 LRN (Rec: 12/25/21 12:37 LRN [id number]) Ankle and Foot Goniometric Range of Motion Ankle and Foot Right Active Ankle/Foot ROM WFL No Testing Position Supine Dorsiflexion with Knee Extended 0 Eversion 10 Left Active Ankle/Foot ROM WFL No Testing Position Supine Dorsiflexion with Knee Extended 6 Eversion 28 PT-OP-M Strength Start: 12/21/21 18:19 Freq: Status: Active Protocol: Document 02/04/22 10:33 LRN (Rec: 02/04/22 11:22 LRN [id number]) Hip Strength Hip Manual Muscle Testing Right Flexion (L2) 5 Normal Extension (S1) 3 Fair Abduction 3+ Fair+ Adduction 5 Normal External Rotation 2 Poor Internal Rotation 4 Good Comments IR is painful in hip with AROM Left Flexion (L2) 5 Normal Extension (S1) 5 Normal Abduction 3- Fair- Adduction 5 Normal External Rotation 5 Normal Internal Rotation 3 Fair Knee Strength Knee Manual Muscle Testing Right Flexion (S2) 5 Normal Extension (L3) 5 Normal Left Flexion (S2) 5 Normal Extension (L3) 5 Normal Ankle/Foot Strength Ankle and Foot Manual Muscle Testing Right Dorsiflexion (L4) 5 Normal Plantarflexion (S1) 5 Normal Inversion 5 Normal Eversion (S1) 5 Normal Left Dorsiflexion (L4) 5 Normal Plantarflexion (S1) 5 Normal Inversion 5 Normal Eversion (S1) 5 Normal PT-OP-Q Treatments Start: 12/21/21 18:19 Freq: Status: Active Protocol: Document 02/25/22 13:48 LRN (Rec: 02/25/22 14:32 LRN [id number]) Therapeutic Exercises Supine Exercises Hip AB Side bilateral Equipment Used LEv 1 TB Reps/Minutes 15x 2 Prone Exercises Hip Ext Prone Exercise Name Hip Ext Side right Equipment Used little yellow BALL for support UNDER R ankle to get Hip Ext range Reps/Minutes 6' Comments Much cuing/training for maintaining neutral pelvis with hip ext, MMT taken Sitting Exercises Hip IR strengthening Sitting Exercise Name Active hip IR Side left Reps/Minutes 15x 2 hip IR, ER T Sitting Exercise Name Active Hip ER (sliding lateral ankle up opp dodge) Side right Equipment Used Lev 1 TB Reps/Minutes 10x 1 hip ER, 10x assisted sliding ankle up opp dodge, hip ER stretch Sitting Exercise Name R leg on table in ER for stretch, f/b active stretch Resistance AAROM stretch Reps/Minutes 30 x2 Comments limited range, cued UE supported on L leg breath/ relax can apply ER gentle Standing Exercises Sit to stands Standing Exercise Name Sit to stands. Comments Cuing to keep knees from collapsing Step ups/downs Standing Exercise Name lateral step ups bottom step Side bilateral Resistance AROM Equipment Used 8 step, 1 HR light LLE, Min BUE support on rail RLE Reps/Minutes 10x each side Comments low pain R hip initial step then better more muscle tiring . Neuro Re-Education Treatment Balance Activities Lateral step ups Details 6 lateral step ups in // bars . Equipment //bars Reps/Duration 10 Comments Step ups L, Step ups R, Side to side step ups. Cuing to keep hips fwd when stepping up w/RLE, pt difficulty due to R hip pain. PT-OP-T Assessment and Plan Start: 12/21/21 18:19 Freq: Status: Active Protocol: Document 02/25/22 13:48 LRN (Rec: 02/25/22 14:32 LRN [id number]) Physical Therapy Assessment Goals Four Impairment Decreased balance with increased risk of falling Impairment SLS is 0 secs RLE, 1 sec LLE. TUG score is 17 secs (60<80% impaired, score 16-17) Short Term Goal (STG) Pt will be able to SLS no less than 5 secs bilaterally and TUG score 14-15 secs (50<60% impared). 01/09/22: progressing SLS 1-3 sec R and LLE; MET: TUs, 9s. 01/17/22: RLE 1-3sec, LLE 1-2 sec. 01/25/22: LLe 8 sec, 5sec; RLE 2-3 sec, 5 sec with papercup under opposite LE hovering over. 01/31/22: decreased to 2-4sec each LE but improved jamie stepping no UE support. (02/04/22: TUG is 12 secs. SLS (in Keds-type shoes): 1 sec LLE; 3 sec RLE 02/21/22: SLS LLE 3 sec, RLE 1 sec. STG Duration 02/07/22 02/21/22: progressing Snf Goal (LTG) Improve TUG 12 secs or less ( 20<40% impaired score 12-13 secs; 1<20% impaired, score 11 ) 01/03/22: STS 1UE support 5 reps in 21sec, TU sec L UE to ascend chair, no UE descend slight plop in chair last 1. 01/09/22: GOAL MET: TUG 10s, 9s. TUG 12 secs. LTG Duration 03/25/22 (01/09/22: GOAL MET) Two Impairment LE weaknesss Short Term Goal (STG) Able to sit to exterminator helper termite a contolled manner without use of arms and equal WBing through the legs. 01/09/22: PRogressing: needs to use 1 UE 30% effort to come to stand. 01/17/22: progressin% 1 UE support come to stand, no UE descend,cued slow hip hinge complete to no flop last 1. Slow pacing, pause full stand and sit, 5 reps in 27s. 14s, little flop at bottom sit. 01/23/22: pt reports can perform 6 STS without UE support but needs 1 UE for 7th due to tiring. (02/04/22: Able to stand normal; sitting WB's more on LLE due to R hip pain). STG Duration 01/25/22 (02/04/22: MET GOAL) Voice Writing Reporter Goal (LTG) Increase hip AB/flex/Ext; knee margarito knee flex & R knee ext, & ankle strength 1 grade (4/5). (02/04/22: Margarito Knee and ankle strength is 5/5; Hip strength is decreased: R Ext/AB/ER>IR; L AB/IR) 02/21/22: added reverse clamshell and side step ups. LTG Duration 03/25/22 (02/21/22: Partially met goal) One Impairment Lacks appropriate self care HEP Snf Goal (LTG) Pt will be independent with a self care HEP. (12/27/21: HEP: Ankle DF in sit & stand and sitting ankle EV strengthening) (01/01/22: HEP: Gastroc & Soleus Stretch) 01/03/22: seated hip abd and ankle EV/PF/DF TB strengthening. (01/11/22: Added HEP: Hip AB in sup, sidelie & standing). 01/23/22: added step ups, band walk, fig 4 stretching 2 positions and self massage using ball on wall, effective feedback. 01/31/22: added resisted clamshell. LTG Duration 03/25/22 (01/31/22: Progressed) Assessment Summary Assessment Pt confident of being able to get up/down off floor, therefore no further training needed. Physical Therapy Plan Next Visit Focus/Plan Next Note Type Treatment Note Next Visit Plan Cont seated R hip ER stretch> active stretch/strengthening, and L hip IR stretch/ strengthening. Hip strengthening in areas of weakness (margarito hip AB, R Ext/ER & Margarito hip IR (L>R)), to assist normalizing gait and balance. HEP: Balance. Focus: Balance SLS: hurdles, Add: sport cord work for SLS balance and add unilateral shuttle recovery next tx if not limited on R hip pain. Gait training: uneven ground. If needed with mirror using SPC/trekpole.
--- NOTE | 2022-02-28 18:14 | PT.OTN ---
Current Diagnoses Muscle weakness (generalized) (02/28/22) Other abnormalities of gait and mobility (02/28/22) Unspecified fall, initial encounter (02/28/22) Activity, other involving muscle strengthening exercises (02/28/22) Physical Therapy Treatment Note PT-OP-A Visit Information Start: 12/21/21 18:19 Freq: Status: Active Protocol: Document 02/28/22 11:20 LRN (Rec: 02/28/22 12:06 LRN [id number]) Out-Patient Physical Therapy Visit Information Visit Information Visit Type Treatment Note Visit Note Visit Start Time 11:20 Visit Stop Time 12:00 Total Visit Minutes 40 Visit Number 17 Evaluation Information Evaluation Date 12/25/21 Precautions Precautions Bilateral mastectomy - 2 yrs ago and had a small prosthesis added, and still taking cancer medication but no signs of cancer currently, uncontrolled blood pressure. PT-OP-B Current Condition Start: 12/21/21 18:19 Freq: Status: Active Protocol: Document 12/25/21 11:20 LRN (Rec: 12/25/21 12:37 LRN [id number]) Current Condition History of Current Condition Onset Date 4 months ago dizziness Current Complaints Weakness of the legs, fear of falling downstairs, sometimes balance problem History of Current Condition 3 months ago when waking the room was swimming. Dizziness went away and just the past 2 weeks ago it started again. Pt also notes after bending over (one event) to pick something up she had an episode of [facility] room spinning. She has not had any other experiences since that time. Last summer her kids noticed she was starting to hold onto things. She was not able to go down stairs without hanging onto the house. States she needed to hang onto something going down stairs due to weakness of the legs and fear of falling down the stairs. She denies fear of falling while walking around the house . Fell last week trying to kick her L shoe off her feet and fell onto the floor. States she will now sit on her bed to remove her shoes. Tries to be careful walking on uneven ground. Prior Treatments and Tests None Treatment Goals Patient/Caregiver Goals Pt is not sure of the goal. States her physician felt she needed therapy due to her need of grabbing railings, and her recent fall trying to kick her shoes off. Prior Functional Status Baseline Function- ADL's Independent Baseline Function- Mobility Independent Baseline Function- Recreation/Hobbies Able to clean house and garden without difficulty. Current Functional Impairments (Reported) Functional Limitations- ADL's Keeps house and gardens, no problems with these activities . Functional Limitations- Mobility/Gait Ambulates with lean to the right. Personal Factors Other Personal Factors That May Effect Active with gardening, Therapy/Recovery mastectomy in 06/2019 resulting from having large breasts to small implanted breasts. PT-OP-C Subjective Start: 12/21/21 18:19 Freq: Status: Active Protocol: Document 02/28/22 11:20 LRN (Rec: 02/28/22 12:06 LRN [id number]) OP-PT Subjective Patient Comments Patient Comments States her R hip feels fine. Pt has questions regarding R hip and her pain. PT-OP-D Balance Start: 12/21/21 18:19 Freq: Status: Active Protocol: Document 01/01/22 12:36 LRN (Rec: 01/01/22 13:49 LRN [id number]) Brown Balance Assessment Evaluation Sitting to Standing Ability Independent w/out Hands Sitting Unsupported, Feet on Floor Safely- 2 minutes Standing to Sitting Ability Safely, Minimal Hand Use Transfer Ability Safely, Minimal Hand Use Unsupported Stance- Eyes Closed Safely, 10 seconds Unsupported Stance- Eyes Open Independent, 1 minute Reaching Forward Standing Confidently, 10 inches Pick- Up Object From Floor Independent/Safe Look Behind Shoulder - Standing Shifts Weight Well Turning 360 Degrees Turns slowly, but safely Unsupported Stance, Alternating Feet on (I)- 8 Steps in 20 secs Stair Unsupported Tandem Stance Balance Lost- Step/Stand Unilateral Leg Stance Lifts Leg/Unable to Hold Total Score Brown Total Score (out of 56 points) 43 Brown Impairment Rating 20 to 39% Impaired (Score 34- 44) PT-OP-E Functional Tests Start: 12/21/21 18:19 Freq: Status: Active Protocol: Document 02/21/22 13:07 SP (Rec: 02/21/22 14:05 SP [id number]) Functional Tests Other BROWN Score 50/56 Comment decrease SLS time 3sec R, 1sec L, see scanned form completed . PT-OP-G Mobility & Gait Start: 12/21/21 18:19 Freq: Status: Active Protocol: Document 12/27/21 14:38 LRN (Rec: 12/27/21 15:22 LRN [id number]) Stair Climbing Evaluation Evaluation Level of Assist On Stairs Independent Devices Stair Climbing Assistive Devices Left Railing,Right Railing Technique/Endurance Stair Climbing Direction Ascend and Descend Stair Climbing Technique Step Over Step Number of Steps Climbed 4 Stair Climbing Set # Repetitions (reps) 1 Comments Stair Climbing Comments Able to go Up stairs with R railing and downstairs with R railing. Pt jumps up when leading with RLE, moderately uncontrolled when going down leading with LLE and she rotates to the R. PT-OP-J Posture/Palpation/Skin Start: 12/21/21 18:19 Freq: Status: Active Protocol: Document 12/25/21 11:20 LRN (Rec: 12/25/21 12:37 LRN [id number]) Posture Evaluation Position Standing T-Spine Posture Flattened L-Spine Posture Increased Lordosis Shoulder Posture (L) Elevated Arm Posture (L) Internally Rotated,(R) Internally Rotated Hip Posture (L) Externally Rotated,(R) Externally Rotated PT-OP-K Range of Motion Start: 12/21/21 18:19 Freq: Status: Active Protocol: Document 12/25/21 11:20 LRN (Rec: 12/25/21 12:37 LRN [id number]) Ankle and Foot Goniometric Range of Motion Ankle and Foot Right Active Ankle/Foot ROM WFL No Testing Position Supine Dorsiflexion with Knee Extended 0 Eversion 10 Left Active Ankle/Foot ROM WFL No Testing Position Supine Dorsiflexion with Knee Extended 6 Eversion 28 PT-OP-M Strength Start: 12/21/21 18:19 Freq: Status: Active Protocol: Document 02/04/22 10:33 LRN (Rec: 02/04/22 11:22 LRN [id number]) Hip Strength Hip Manual Muscle Testing Right Flexion (L2) 5 Normal Extension (S1) 3 Fair Abduction 3+ Fair+ Adduction 5 Normal External Rotation 2 Poor Internal Rotation 4 Good Comments IR is painful in hip with AROM Left Flexion (L2) 5 Normal Extension (S1) 5 Normal Abduction 3- Fair- Adduction 5 Normal External Rotation 5 Normal Internal Rotation 3 Fair Knee Strength Knee Manual Muscle Testing Right Flexion (S2) 5 Normal Extension (L3) 5 Normal Left Flexion (S2) 5 Normal Extension (L3) 5 Normal Ankle/Foot Strength Ankle and Foot Manual Muscle Testing Right Dorsiflexion (L4) 5 Normal Plantarflexion (S1) 5 Normal Inversion 5 Normal Eversion (S1) 5 Normal Left Dorsiflexion (L4) 5 Normal Plantarflexion (S1) 5 Normal Inversion 5 Normal Eversion (S1) 5 Normal PT-OP-Q Treatments Start: 12/21/21 18:19 Freq: Status: Active Protocol: Document 02/28/22 11:20 LRN (Rec: 02/28/22 12:06 LRN [id number]) Therapeutic Exercises Standing Exercises Hip Ext Standing Exercise Name Hip Ext Side bilateral Equipment Used Railing for phys cue for neutral pelvic positioning Reps/Minutes 15x Awareness training Standing Exercise Name R pelvis anterior rot and shift to R before sidestepping Side right Reps/Minutes 10' Hip AB Standing Exercise Name Sidesteping: Hip AB- L hip abd weakness Side bilateral Reps/Minutes 5' Comments cued upright posture, TA neutral (pelvic cuing to correct for a L rot) Step ups/downs Standing Exercise Name fwd step ups/downs without & with TBand Side bilateral Resistance AROM Equipment Used // bars, mirror, TBand around R knee for resistance to AB Reps/Minutes 10' Comments No pain in R hip Gait Training Gait Activity gait in mirror Description Wgt shift R with trunk upright Device Used None Level of Assistance Min A to cue trunk upright and for wgt shift. Surface level Distance/Duration 10' Neuro Re-Education Treatment Balance Activities SLS Details SLS Surface Firm Reps/Duration 8' Comments 3 RLE 3-5 LLE Self-Care/Home Management Treatment Education Other Education Discussed R hip pain and options of care (primary care, ortho). PT-OP-T Assessment and Plan Start: 12/21/21 18:19 Freq: Status: Active Protocol: Document 02/28/22 11:20 LRN (Rec: 02/28/22 12:06 LRN [id number]) Physical Therapy Assessment Goals Four Impairment Decreased balance with increased risk of falling Impairment SLS is 0 secs RLE, 1 sec LLE. TUG score is 17 secs (60<80% impaired, score 16-17) Short Term Goal (STG) Pt will be able to SLS no less than 5 secs bilaterally and TUG score 14-15 secs (50<60% impared). 01/09/22: progressing SLS 1-3 sec R and LLE; MET: TUs, 9s. 01/17/22: RLE 1-3sec, LLE 1-2 sec. 01/25/22: LLe 8 sec, 5sec; RLE 2-3 sec, 5 sec with papercup under opposite LE hovering over. 01/31/22: decreased to 2-4sec each LE but improved jamie stepping no UE support. (02/04/22: TUG is 12 secs. SLS (in Keds-type shoes): 1 sec LLE; 3 sec RLE 02/21/22: SLS LLE 3 sec, RLE 1 sec. (02/28/22: SLS LLE 3 sec, RLE 3 sec) STG Duration 02/07/22 (02/28/22: progressing) Manager Photography Goal (LTG) Improve TUG 12 secs or less ( 20<40% impaired score 12-13 secs; 1<20% impaired, score 11 ) 01/03/22: STS 1UE support 5 reps in 21sec, TU sec L UE to ascend chair, no UE descend slight plop in chair last 1. 01/09/22: GOAL MET: TUG 10s, 9s. TUG 12 secs. LTG Duration 03/25/22 (01/09/22: GOAL MET) Two Impairment LE weaknesss Short Term Goal (STG) Able to sit to criminology teacher a contolled manner without use of arms and equal WBing through the legs. 01/09/22: PRogressing: needs to use 1 UE 30% effort to come to stand. 01/17/22: progressin% 1 UE support come to stand, no UE descend,cued slow hip hinge complete to no flop last 1. Slow pacing, pause full stand and sit, 5 reps in 27s. 14s, little flop at bottom sit. 01/23/22: pt reports can perform 6 STS without UE support but needs 1 UE for 7th due to tiring. (02/04/22: Able to stand normal; sitting WB's more on LLE due to R hip pain). STG Duration 01/25/22 (02/04/22: MET GOAL) Manager Photography Goal (LTG) Increase hip AB/flex/Ext; knee margarito knee flex & R knee ext, & ankle strength 1 grade (4/5). (02/04/22: Margarito Knee and ankle strength is 5/5; Hip strength is decreased: R Ext/AB/ER>IR; L AB/IR) 02/21/22: added reverse clamshell and side step ups. LTG Duration 03/25/22 (02/21/22: Partially met goal) One Impairment Lacks appropriate self care HEP M[facility] Goal (LTG) Pt will be independent with a self care HEP. (12/27/21: HEP: Ankle DF in sit & stand and sitting ankle EV strengthening) (01/01/22: HEP: Gastroc & Soleus Stretch) 01/03/22: seated hip abd and ankle EV/PF/DF TB strengthening. (01/11/22: Added HEP: Hip AB in sup, sidelie & standing). 01/23/22: added step ups, band walk, fig 4 stretching 2 positions and self massage using ball on wall, effective feedback. 01/31/22: added resisted clamshell. LTG Duration 03/25/22 (01/31/22: Progressed) Progress Towards Goals Progress Comments Improved: SLS 3 secs bilaterally (was 3sec L, 1 sec R) Assessment Summary Assessment Pt able to SLS on R side 3 secs with trunk in good position. Pt able to walk with a good gait for first few steps before she presents with Trendelenburg lean to R side. She is able to control core with use of mirror for visual feedback during gait and exercise. Physical Therapy Plan Frequency and Duration Frequency of Treatment 2x/Week Plan of Care Start Date 12/25/21 Plan of Care End Date 03/25/22 Next Visit Focus/Plan Next Note Type Treatment Note Next Visit Plan KX next visit. Cont seated R hip ER stretch>active stretch /strengthening, and L hip IR stretch/strengthening. Hip strengthening in areas of weakness (margarito hip AB, R Ext/ER & Margarito hip IR (L>R)), to assist normalizing gait and balance. HEP: Balance. Focus: Balance SLS: hurdles Add: sport cord work for SLS balance and add unilateral shuttle recovery next tx if not limited on R hip pain. Gait training: uneven ground. If needed with mirror using SPC/trekpole.
--- NOTE | 2022-03-04 15:38 | PT.OTN ---
Current Diagnoses Muscle weakness (generalized) (03/04/22) Other abnormalities of gait and mobility (03/04/22) Unspecified fall, initial encounter (03/04/22) Activity, other involving muscle strengthening exercises (03/04/22) Physical Therapy Treatment Note PT-OP-A Visit Information Start: 12/21/21 18:19 Freq: Status: Active Protocol: Document 03/04/22 13:01 LRN (Rec: 03/04/22 15:37 LRN [id number]) Out-Patient Physical Therapy Visit Information Visit Information Visit Type Treatment Note Visit Note 7 after PN Visit Start Time 13:01 Visit Stop Time 13:46 Total Visit Minutes 45 Visit Number 18 Evaluation Information Evaluation Date 12/25/21 Precautions Precautions Bilateral mastectomy - 2 yrs ago and had a small prosthesis added, and still taking cancer medication but no signs of cancer currently, uncontrolled blood pressure. PT-OP-B Current Condition Start: 12/21/21 18:19 Freq: Status: Active Protocol: Document 12/25/21 11:20 LRN (Rec: 12/25/21 12:37 LRN [id number]) Current Condition History of Current Condition Onset Date 4 months ago dizziness Current Complaints Weakness of the legs, fear of falling downstairs, sometimes balance problem History of Current Condition 3 months ago when waking the room was swimming. Dizziness went away and just the past 2 weeks ago it started again. Pt also notes after bending over (one event) to pick something up she had an episode of [facility] room spinning. She has not had any other experiences since that time. Last summer her kids noticed she was starting to hold onto things. She was not able to go down stairs without hanging onto the house. States she needed to hang onto something going down stairs due to weakness of the legs and fear of falling down the stairs. She denies fear of falling while walking around the house . Fell last week trying to kick her L shoe off her feet and fell onto the floor. States she will now sit on her bed to remove her shoes. Tries to be careful walking on uneven ground. Prior Treatments and Tests None Treatment Goals Patient/Caregiver Goals Pt is not sure of the goal. States her physician felt she needed therapy due to her need of grabbing railings, and her recent fall trying to kick her shoes off. Prior Functional Status Baseline Function- ADL's Independent Baseline Function- Mobility Independent Baseline Function- Recreation/Hobbies Able to clean house and garden without difficulty. Current Functional Impairments (Reported) Functional Limitations- ADL's Keeps house and gardens, no problems with these activities . Functional Limitations- Mobility/Gait Ambulates with lean to the right. Personal Factors Other Personal Factors That May Effect Active with gardening, Therapy/Recovery mastectomy in 06/2019 resulting from having large breasts to small implanted breasts. PT-OP-C Subjective Start: 12/21/21 18:19 Freq: Status: Active Protocol: Document 03/04/22 13:01 LRN (Rec: 03/04/22 15:37 LRN [id number]) OP-PT Subjective Patient Comments Patient Comments Pain in R groin after last session that a day. PT-OP-D Balance Start: 12/21/21 18:19 Freq: Status: Active Protocol: Document 01/01/22 12:36 LRN (Rec: 01/01/22 13:49 LRN [id number]) Brown Balance Assessment Evaluation Sitting to Standing Ability Independent w/out Hands Sitting Unsupported, Feet on Floor Safely- 2 minutes Standing to Sitting Ability Safely, Minimal Hand Use Transfer Ability Safely, Minimal Hand Use Unsupported Stance- Eyes Closed Safely, 10 seconds Unsupported Stance- Eyes Open Independent, 1 minute Reaching Forward Standing Confidently, 10 inches Pick- Up Object From Floor Independent/Safe Look Behind Shoulder - Standing Shifts Weight Well Turning 360 Degrees Turns slowly, but safely Unsupported Stance, Alternating Feet on (I)- 8 Steps in 20 secs Stair Unsupported Tandem Stance Balance Lost- Step/Stand Unilateral Leg Stance Lifts Leg/Unable to Hold Total Score Brown Total Score (out of 56 points) 43 Brown Impairment Rating 20 to 39% Impaired (Score 34- 44) PT-OP-E Functional Tests Start: 12/21/21 18:19 Freq: Status: Active Protocol: Document 02/21/22 13:07 SP (Rec: 02/21/22 14:05 SP [id number]) Functional Tests Other BROWN Score 50/56 Comment decrease SLS time 3sec R, 1sec L, see scanned form completed . PT-OP-G Mobility & Gait Start: 12/21/21 18:19 Freq: Status: Active Protocol: Document 12/27/21 14:38 LRN (Rec: 12/27/21 15:22 LRN [id number]) Stair Climbing Evaluation Evaluation Level of Assist On Stairs Independent Devices Stair Climbing Assistive Devices Left Railing,Right Railing Technique/Endurance Stair Climbing Direction Ascend and Descend Stair Climbing Technique Step Over Step Number of Steps Climbed 4 Stair Climbing Set # Repetitions (reps) 1 Comments Stair Climbing Comments Able to go Up stairs with R railing and downstairs with R railing. Pt jumps up when leading with RLE, moderately uncontrolled when going down leading with LLE and she rotates to the R. PT-OP-J Posture/Palpation/Skin Start: 12/21/21 18:19 Freq: Status: Active Protocol: Document 12/25/21 11:20 LRN (Rec: 12/25/21 12:37 LRN [id number]) Posture Evaluation Position Standing T-Spine Posture Flattened L-Spine Posture Increased Lordosis Shoulder Posture (L) Elevated Arm Posture (L) Internally Rotated,(R) Internally Rotated Hip Posture (L) Externally Rotated,(R) Externally Rotated PT-OP-K Range of Motion Start: 12/21/21 18:19 Freq: Status: Active Protocol: Document 12/25/21 11:20 LRN (Rec: 12/25/21 12:37 LRN [id number]) Ankle and Foot Goniometric Range of Motion Ankle and Foot Right Active Ankle/Foot ROM WFL No Testing Position Supine Dorsiflexion with Knee Extended 0 Eversion 10 Left Active Ankle/Foot ROM WFL No Testing Position Supine Dorsiflexion with Knee Extended 6 Eversion 28 PT-OP-M Strength Start: 12/21/21 18:19 Freq: Status: Active Protocol: Document 02/04/22 10:33 LRN (Rec: 02/04/22 11:22 LRN [id number]) Hip Strength Hip Manual Muscle Testing Right Flexion (L2) 5 Normal Extension (S1) 3 Fair Abduction 3+ Fair+ Adduction 5 Normal External Rotation 2 Poor Internal Rotation 4 Good Comments IR is painful in hip with AROM Left Flexion (L2) 5 Normal Extension (S1) 5 Normal Abduction 3- Fair- Adduction 5 Normal External Rotation 5 Normal Internal Rotation 3 Fair Knee Strength Knee Manual Muscle Testing Right Flexion (S2) 5 Normal Extension (L3) 5 Normal Left Flexion (S2) 5 Normal Extension (L3) 5 Normal Ankle/Foot Strength Ankle and Foot Manual Muscle Testing Right Dorsiflexion (L4) 5 Normal Plantarflexion (S1) 5 Normal Inversion 5 Normal Eversion (S1) 5 Normal Left Dorsiflexion (L4) 5 Normal Plantarflexion (S1) 5 Normal Inversion 5 Normal Eversion (S1) 5 Normal PT-OP-Q Treatments Start: 12/21/21 18:19 Freq: Status: Active Protocol: Document 03/04/22 13:01 LRN (Rec: 03/04/22 15:37 LRN [id number]) Gym Equipment Shuttle Rebound Feet together Exercise Details Blue posts, med tight laterally, Standing, hands hovering Reps/Duration 4' Standing Exercise Details Blue posts, med tight laterally, Standing, hands hovering Reps/Duration 4' Sport Cord Fwd/bkwd walking Exercise Details Fwd/Bkwd walking Cord/Resistance Green Reps/Duration 4' Side stepping Exercise Details Sidestepping Cord/Resistance Green Reps/Duration 4' Therapeutic Exercises Supine Exercises Hip AB Side bilateral Equipment Used LEv 1 TB Reps/Minutes 15x 1 Hip Flex Supine Exercise Name Hip Flex stretch-Clyde Test position w/L SKTC Side right Reps/Minutes 60 H x 2. Bridging x 10 after stretch Comments Extra time for positioning for stretch & Stand/walk after each stretch Sitting Exercises Hip IR strengthening Sitting Exercise Name Active hip IR Side left Reps/Minutes 15x 2 hip IR, ER T Sitting Exercise Name Active Hip ER (sliding lateral ankle up opp dodge) Side right Reps/Minutes 10x 1 hip ER, 10x assisted sliding ankle up opp dodge, hip ER stretch Sitting Exercise Name R leg on table in ER for stretch, f/b active stretch Resistance AAROM stretch Reps/Minutes 1'x 2, standing and walking after each stretch Comments limited range, cued UE supported on L leg breath/ relax can apply ER gentle Neuro Re-Education Treatment Balance Activities Feet together standing Details Feet together standing Surface Unstable Equipment Guzman cushion Reps/Duration 3' Comments 1' pt started to get R groin pain. SLS Details SLS Surface Unstabe & Firm Reps/Duration 8' Comments Firn: 1 RLE; 5 LLE PT-OP-T Assessment and Plan Start: 12/21/21 18:19 Freq: Status: Active Protocol: Document 03/04/22 13:01 LRN (Rec: 03/04/22 15:37 LRN [id number]) Physical Therapy Assessment Goals Four Impairment Decreased balance with increased risk of falling Impairment SLS is 0 secs RLE, 1 sec LLE. TUG score is 17 secs (60<80% impaired, score 16-17) Short Term Goal (STG) Pt will be able to SLS no less than 5 secs bilaterally and TUG score 14-15 secs (50<60% impared). 01/09/22: progressing SLS 1-3 sec R and LLE; MET: TUs, 9s. 01/17/22: RLE 1-3sec, LLE 1-2 sec. 01/25/22: LLe 8 sec, 5sec; RLE 2-3 sec, 5 sec with papercup under opposite LE hovering over. 01/31/22: decreased to 2-4sec each LE but improved jamie stepping no UE support. (02/04/22: TUG is 12 secs. SLS (in Keds-type shoes): 1 sec LLE; 3 sec RLE 02/21/22: SLS LLE 3 sec, RLE 1 sec. (02/28/22: SLS LLE 3 sec, RLE 3 sec) (03/04/22: SLS: L-5 sec, R-1 sec) STG Duration 02/07/22 (02/28/22: progressing) Assisted Goal (LTG) Improve TUG 12 secs or less ( 20<40% impaired score 12-13 secs; 1<20% impaired, score 11 ) 01/03/22: STS 1UE support 5 reps in 21sec, TU sec L UE to ascend chair, no UE descend slight plop in chair last 1. 01/09/22: GOAL MET: TUG 10s, 9s. TUG 12 secs. LTG Duration 03/25/22 (01/09/22: GOAL MET) Two Impairment LE weaknesss Short Term Goal (STG) Able to sit to winterizer a contolled manner without use of arms and equal WBing through the legs. 01/09/22: PRogressing: needs to use 1 UE 30% effort to come to stand. 01/17/22: progressin% 1 UE support come to stand, no UE descend,cued slow hip hinge complete to no flop last 1. Slow pacing, pause full stand and sit, 5 reps in 27s. 14s, little flop at bottom sit. 01/23/22: pt reports can perform 6 STS without UE support but needs 1 UE for 7th due to tiring. (02/04/22: Able to stand normal; sitting WB's more on LLE due to R hip pain). STG Duration 01/25/22 (02/04/22: MET GOAL) Bar Gauger And Lubricator Tender Goal (LTG) Increase hip AB/flex/Ext; knee margarito knee flex & R knee ext, & ankle strength 1 grade (4/5). (02/04/22: Margarito Knee and ankle strength is 5/5; Hip strength is decreased: R Ext/AB/ER>IR; L AB/IR) 02/21/22: added reverse clamshell and side step ups. LTG Duration 03/25/22 (02/21/22: Partially met goal) One Impairment Lacks appropriate self care HEP Bar Gauger And Lubricator Tender Goal (LTG) Pt will be independent with a self care HEP. (12/27/21: HEP: Ankle DF in sit & stand and sitting ankle EV strengthening) (01/01/22: HEP: Gastroc & Soleus Stretch) 01/03/22: seated hip abd and ankle EV/PF/DF TB strengthening. (01/11/22: Added HEP: Hip AB in sup, sidelie & standing). 01/23/22: added step ups, band walk, fig 4 stretching 2 positions and self massage using ball on wall, effective feedback. 01/31/22: added resisted clamshell. LTG Duration 03/25/22 (01/31/22: Progressed) Assessment Summary Assessment Step ups may be overactivating hip flexors; therefore may be reason for R groin pain. No R groin pain with ROM of hip ER/IR ex. R groin pain lingered after supine Iliopsoas stretch. Pt is able to walk with minimal Trendelenburg type gait when concentrating. Physical Therapy Plan Frequency and Duration Frequency of Treatment 2x/Week Plan of Care Start Date 12/25/21 Plan of Care End Date 03/25/22 Next Visit Focus/Plan Next Note Type Treatment Note Next Visit Plan KX in 2 visits. HEP: Balance. Focus: Balance & gait (uneven ground, hurdles)/HEP. Progress R hip ER: stretch & strengthening, and L hip IR stretch & strengthening. ( Sitting best position). Hip strengthening in areas of weakness (margarito hip AB, R Ext/ER & Margarito hip IR (L>R)), to assist normalizing gait and balance. Add: sport cord work for SLS balance and add unilateral shuttle recovery next tx if not limited on R hip pain. If needed with mirror using SPC/trekpole.
--- NOTE | 2022-03-06 13:00 | PT.OTN ---
Current Diagnoses Muscle weakness (generalized) (03/06/22) Other abnormalities of gait and mobility (03/06/22) Unspecified fall, initial encounter (03/06/22) Activity, other involving muscle strengthening exercises (03/06/22) Physical Therapy Treatment Note PT-OP-A Visit Information Start: 12/21/21 18:19 Freq: Status: Active Protocol: Document 03/06/22 12:17 SP (Rec: 03/06/22 13:04 SP [id number]) Out-Patient Physical Therapy Visit Information Visit Information Visit Type Treatment Note Visit Note 8 after PN Visit Start Time 12:17 Visit Stop Time 13:00 Total Visit Minutes 43 Visit Number Number of DEAL ARCHITECT Visits 1 Evaluation Information Evaluation Date 12/25/21 Precautions Precautions Bilateral mastectomy - 2 yrs ago and had a small prosthesis added, and still taking cancer medication but no signs of cancer currently, uncontrolled blood pressure. PT-OP-B Current Condition Start: 12/21/21 18:19 Freq: Status: Active Protocol: Document 12/25/21 11:20 LRN (Rec: 12/25/21 12:37 LRN [id number]) Current Condition History of Current Condition Onset Date 4 months ago dizziness Current Complaints Weakness of the legs, fear of falling downstairs, sometimes balance problem History of Current Condition 3 months ago when waking the room was swimming. Dizziness went away and just the past 2 weeks ago it started again. Pt also notes after bending over (one event) to pick something up she had an episode of [facility] room spinning. She has not had any other experiences since that time. Last summer her kids noticed she was starting to hold onto things. She was not able to go down stairs without hanging onto the house. States she needed to hang onto something going down stairs due to weakness of the legs and fear of falling down the stairs. She denies fear of falling while walking around the house . Fell last week trying to kick her L shoe off her feet and fell onto the floor. States she will now sit on her bed to remove her shoes. Tries to be careful walking on uneven ground. Prior Treatments and Tests None Treatment Goals Patient/Caregiver Goals Pt is not sure of the goal. States her physician felt she needed therapy due to her need of grabbing railings, and her recent fall trying to kick her shoes off. Prior Functional Status Baseline Function- ADL's Independent Baseline Function- Mobility Independent Baseline Function- Recreation/Hobbies Able to clean house and garden without difficulty. Current Functional Impairments (Reported) Functional Limitations- ADL's Keeps house and gardens, no problems with these activities . Functional Limitations- Mobility/Gait Ambulates with lean to the right. Personal Factors Other Personal Factors That May Effect Active with gardening, Therapy/Recovery mastectomy in 06/2019 resulting from having large breasts to small implanted breasts. PT-OP-C Subjective Start: 12/21/21 18:19 Freq: Status: Active Protocol: Document 03/06/22 12:17 SP (Rec: 03/06/22 13:04 SP [id number]) OP-PT Subjective Patient Comments Patient Comments Pt stated wasn't as sore and recovered better after last tx , thinks as PT that step ups were irritating her. PT-OP-D Balance Start: 12/21/21 18:19 Freq: Status: Active Protocol: Document 01/01/22 12:36 LRN (Rec: 01/01/22 13:49 LRN [id number]) Brown Balance Assessment Evaluation Sitting to Standing Ability Independent w/out Hands Sitting Unsupported, Feet on Floor Safely- 2 minutes Standing to Sitting Ability Safely, Minimal Hand Use Transfer Ability Safely, Minimal Hand Use Unsupported Stance- Eyes Closed Safely, 10 seconds Unsupported Stance- Eyes Open Independent, 1 minute Reaching Forward Standing Confidently, 10 inches Pick- Up Object From Floor Independent/Safe Look Behind Shoulder - Standing Shifts Weight Well Turning 360 Degrees Turns slowly, but safely Unsupported Stance, Alternating Feet on (I)- 8 Steps in 20 secs Stair Unsupported Tandem Stance Balance Lost- Step/Stand Unilateral Leg Stance Lifts Leg/Unable to Hold Total Score Brown Total Score (out of 56 points) 43 Brown Impairment Rating 20 to 39% Impaired (Score 34- 44) PT-OP-E Functional Tests Start: 12/21/21 18:19 Freq: Status: Active Protocol: Document 02/21/22 13:07 SP (Rec: 02/21/22 14:05 SP [id number]) Functional Tests Other BROWN Score 50/56 Comment decrease SLS time 3sec R, 1sec L, see scanned form completed . PT-OP-G Mobility & Gait Start: 12/21/21 18:19 Freq: Status: Active Protocol: Document 12/27/21 14:38 LRN (Rec: 12/27/21 15:22 LRN [id number]) Stair Climbing Evaluation Evaluation Level of Assist On Stairs Independent Devices Stair Climbing Assistive Devices Left Railing,Right Railing Technique/Endurance Stair Climbing Direction Ascend and Descend Stair Climbing Technique Step Over Step Number of Steps Climbed 4 Stair Climbing Set # Repetitions (reps) 1 Comments Stair Climbing Comments Able to go Up stairs with R railing and downstairs with R railing. Pt jumps up when leading with RLE, moderately uncontrolled when going down leading with LLE and she rotates to the R. PT-OP-J Posture/Palpation/Skin Start: 12/21/21 18:19 Freq: Status: Active Protocol: Document 12/25/21 11:20 LRN (Rec: 12/25/21 12:37 LRN [id number]) Posture Evaluation Position Standing T-Spine Posture Flattened L-Spine Posture Increased Lordosis Shoulder Posture (L) Elevated Arm Posture (L) Internally Rotated,(R) Internally Rotated Hip Posture (L) Externally Rotated,(R) Externally Rotated PT-OP-K Range of Motion Start: 12/21/21 18:19 Freq: Status: Active Protocol: Document 12/25/21 11:20 LRN (Rec: 12/25/21 12:37 LRN [id number]) Ankle and Foot Goniometric Range of Motion Ankle and Foot Right Active Ankle/Foot ROM WFL No Testing Position Supine Dorsiflexion with Knee Extended 0 Eversion 10 Left Active Ankle/Foot ROM WFL No Testing Position Supine Dorsiflexion with Knee Extended 6 Eversion 28 PT-OP-M Strength Start: 12/21/21 18:19 Freq: Status: Active Protocol: Document 02/04/22 10:33 LRN (Rec: 02/04/22 11:22 LRN [id number]) Hip Strength Hip Manual Muscle Testing Right Flexion (L2) 5 Normal Extension (S1) 3 Fair Abduction 3+ Fair+ Adduction 5 Normal External Rotation 2 Poor Internal Rotation 4 Good Comments IR is painful in hip with AROM Left Flexion (L2) 5 Normal Extension (S1) 5 Normal Abduction 3- Fair- Adduction 5 Normal External Rotation 5 Normal Internal Rotation 3 Fair Knee Strength Knee Manual Muscle Testing Right Flexion (S2) 5 Normal Extension (L3) 5 Normal Left Flexion (S2) 5 Normal Extension (L3) 5 Normal Ankle/Foot Strength Ankle and Foot Manual Muscle Testing Right Dorsiflexion (L4) 5 Normal Plantarflexion (S1) 5 Normal Inversion 5 Normal Eversion (S1) 5 Normal Left Dorsiflexion (L4) 5 Normal Plantarflexion (S1) 5 Normal Inversion 5 Normal Eversion (S1) 5 Normal PT-OP-Q Treatments Start: 12/21/21 18:19 Freq: Status: Active Protocol: Document 03/06/22 12:17 SP (Rec: 03/06/22 13:04 SP [id number]) Gym Equipment Shuttle Rebound Feet together Exercise Details Blue posts, med tight laterally, Standing, hands hovering Reps/Duration 4' Shuttle Balance blue chains Details WBOS, NBOS Comments 1. HT, vertical 2. EC WBOS 30, 8 sec NBOS Therapeutic Exercises Supine Exercises Hip AB Side bilateral Equipment Used LEv 1 TB Reps/Minutes 15x 1 Comments cued perform 1 LE at time with report able fac TA and = ABD distance Hip Flex Supine Exercise Name Hip Flex stretch-Clyde Stretch Side right Reps/Minutes 60 H Comments good feedback stretch more lateral than anterior today, painfree Sidelying Exercises reverse clamshell Sidelying Exercise Name reviewed HEP Side bilateral Reps/Minutes x10 Comments good feedback muscle tiring painfree Clamshell Sidelying Exercise Name Clamshell- HEP reviewed- L weaker than R. Side bilateral Resistance TB #1 loop Reps/Minutes 15 reps Comments good stacked alignment and form, muscle tiring Hip AB Sidelying Exercise Name Hip AB w/top pelvis in neutral training Side bilateral Resistance TB #1 loop Reps/Minutes x10 Comments good stacked alignment and form, muscle tiring Sitting Exercises hip ER stretch Sitting Exercise Name R leg on table in ER for stretch, f/b active stretch Resistance AAROM stretch Reps/Minutes 30 Comments improved post manual STM w/ PROM stretch Standing Exercises lunge adductor stretch Side right Equipment Used //bars Reps/Minutes 30 x2 Comments good feedback stretch as held Manual Therapy Treatment Soft Tissue Mobilization R adductor Body Location R Mobilization Type Cross-Friction,Strumming Intensity/Depth Moderate Comments manual with gentle increase PROM into Hip ER, improved hip ER ROM PT-OP-T Assessment and Plan Start: 12/21/21 18:19 Freq: Status: Active Protocol: Document 03/06/22 12:17 SP (Rec: 03/06/22 13:04 SP [id number]) Physical Therapy Assessment Goals Four Impairment Decreased balance with increased risk of falling Impairment SLS is 0 secs RLE, 1 sec LLE. TUG score is 17 secs (60<80% impaired, score 16-17) Short Term Goal (STG) Pt will be able to SLS no less than 5 secs bilaterally and TUG score 14-15 secs (50<60% impared). 01/09/22: progressing SLS 1-3 sec R and LLE; MET: TUs, 9s. 01/17/22: RLE 1-3sec, LLE 1-2 sec. 01/25/22: LLe 8 sec, 5sec; RLE 2-3 sec, 5 sec with papercup under opposite LE hovering over. 01/31/22: decreased to 2-4sec each LE but improved jamie stepping no UE support. (02/04/22: TUG is 12 secs. SLS (in Keds-type shoes): 1 sec LLE; 3 sec RLE 02/21/22: SLS LLE 3 sec, RLE 1 sec. 03/06/22: Shuttle balance: EC WBOS 30, 8 sec NBOS (hands hovering side rail) (02/28/22: SLS LLE 3 sec, RLE 3 sec) (03/04/22: SLS: L-5 sec, R-1 sec) STG Duration 02/07/22 (03/06/22: progressing) Long-Term Goal (LTG) Improve TUG 12 secs or less ( 20<40% impaired score 12-13 secs; 1<20% impaired, score 11 ) 01/03/22: STS 1UE support 5 reps in 21sec, TU sec L UE to ascend chair, no UE descend slight plop in chair last 1. 01/09/22: GOAL MET: TUG 10s, 9s. TUG 12 secs. 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 01/09/22: PRogressing: needs to use 1 UE 30% effort to come to stand. 01/17/22: progressin% 1 UE support come to stand, no UE descend,cued slow hip hinge complete to no flop last 1. Slow pacing, pause full stand and sit, 5 reps in 27s. 14s, little flop at bottom sit. 01/23/22: pt reports can perform 6 STS without UE support but needs 1 UE for 7th due to tiring. (02/04/22: Able to stand normal; sitting WB's more on LLE due to R hip pain). 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 (02/04/22: Margarito Knee and ankle strength is 5/5; Hip strength is decreased: R Ext/AB/ER>IR; L AB/IR) 02/21/22: added reverse clamshell and side step ups. LTG Duration 03/25/22 (02/21/22: Partially met goal) One Impairment Lacks appropriate self care HEP Long-Term Goal (LTG) Pt will be independent with a self care HEP. (12/27/21: HEP: Ankle DF in sit & stand and sitting ankle EV strengthening) (01/01/22: HEP: Gastroc & Soleus Stretch) 01/03/22: seated hip abd and ankle EV/PF/DF TB strengthening. (01/11/22: Added HEP: Hip AB in sup, sidelie & standing). 01/23/22: added step ups, band walk, fig 4 stretching 2 positions and self massage using ball on wall, effective feedback. 01/31/22: added resisted clamshell. 03/06/22: added resisted side hip abd. LTG Duration 03/25/22 (03/06/22: Progressed) Assessment Summary Assessment Pt tolerated increase R hip ER w/ manual STMs and able to get R ankle over L knee sitting. Pt ableto perform shuttle balance NBOS 8 sec EC and WBOS 30 sec. Noted decreased in lateral trunk wt shift gait leaving this tx and stated hip abd muscle tired but not sore end tx. Physical Therapy Plan Frequency and Duration Frequency of Treatment 2x/Week Plan of Care Start Date 12/25/21 Plan of Care End Date 03/25/22 Therapeutic Interventions Therapeutic Interventions Balance Training,Gait Training ,Home Exercise Program,Joint Mobilizations,Manual Therapy, Neuromuscular Re-education, Patient/Caregiver Education, Self-Care/Home Management,Soft Tissue Mobilization, Therapeutic Exercises Modalities Cold Pack/Ice Massage,Hot Packs Next Visit Focus/Plan Next Note Type Treatment Note Next Visit Plan KX in 1 visits. PN due 03/14 with PT (DEAL ARCHITECT appt 03/20, POC exp 03/25) HEP: Balance. Focus: Balance & gait (uneven ground, hurdles)/HEP. Progress R hip ER: stretch & strengthening, and L hip IR stretch & strengthening. ( Sitting best position). Hip strengthening in areas of weakness (margarito hip AB, R Ext/ER & Margarito hip IR (L>R)), to assist normalizing gait and balance. Add: sport cord work for SLS balance and add unilateral shuttle recovery next tx if not limited on R hip pain. If needed with mirror using SPC/trekpole.
--- NOTE | 2022-03-12 12:34 | PT.OTN ---
Current Diagnoses Muscle weakness (generalized) (03/12/22) Other abnormalities of gait and mobility (03/12/22) Unspecified fall, initial encounter (03/12/22) Activity, other involving muscle strengthening exercises (03/12/22) Physical Therapy Treatment Note PT-OP-A Visit Information Start: 12/21/21 18:19 Freq: Status: Active Protocol: Document 03/12/22 10:31 LRN (Rec: 03/12/22 11:21 LRN [id number]) Out-Patient Physical Therapy Visit Information Visit Information Visit Type Treatment Note Visit Start Time 10:31 Visit Stop Time 11:13 Total Visit Minutes 42 Visit Number Evaluation Information Evaluation Date 12/25/21 Precautions Precautions Bilateral mastectomy - 2 yrs ago and had a small prosthesis added, and still taking cancer medication but no signs of cancer currently, uncontrolled blood pressure. PT-OP-B Current Condition Start: 12/21/21 18:19 Freq: Status: Active Protocol: Document 12/25/21 11:20 LRN (Rec: 12/25/21 12:37 LRN [id number]) Current Condition History of Current Condition Onset Date 4 months ago dizziness Current Complaints Weakness of the legs, fear of falling downstairs, sometimes balance problem History of Current Condition 3 months ago when waking the room was swimming. Dizziness went away and just the past 2 weeks ago it started again. Pt also notes after bending over (one event) to pick something up she had an episode of [facility] room spinning. She has not had any other experiences since that time. Last summer her kids noticed she was starting to hold onto things. She was not able to go down stairs without hanging onto the house. States she needed to hang onto something going down stairs due to weakness of the legs and fear of falling down the stairs. She denies fear of falling while walking around the house . Fell last week trying to kick her L shoe off her feet and fell onto the floor. States she will now sit on her bed to remove her shoes. Tries to be careful walking on uneven ground. Prior Treatments and Tests None Treatment Goals Patient/Caregiver Goals Pt is not sure of the goal. States her physician felt she needed therapy due to her need of grabbing railings, and her recent fall trying to kick her shoes off. Prior Functional Status Baseline Function- ADL's Independent Baseline Function- Mobility Independent Baseline Function- Recreation/Hobbies Able to clean house and garden without difficulty. Current Functional Impairments (Reported) Functional Limitations- ADL's Keeps house and gardens, no problems with these activities . Functional Limitations- Mobility/Gait Ambulates with lean to the right. Personal Factors Other Personal Factors That May Effect Active with gardening, Therapy/Recovery mastectomy in 06/2019 resulting from having large breasts to small implanted breasts. PT-OP-C Subjective Start: 12/21/21 18:19 Freq: Status: Active Protocol: Document 03/12/22 10:31 LRN (Rec: 03/12/22 11:21 LRN [id number]) OP-PT Subjective Patient Comments Patient Comments States she has been feeling more balanced. Didn't feel balanced yesterday moving boxes. PT-OP-D Balance Start: 12/21/21 18:19 Freq: Status: Active Protocol: Document 01/01/22 12:36 LRN (Rec: 01/01/22 13:49 LRN [id number]) Brown Balance Assessment Evaluation Sitting to Standing Ability Independent w/out Hands Sitting Unsupported, Feet on Floor Safely- 2 minutes Standing to Sitting Ability Safely, Minimal Hand Use Transfer Ability Safely, Minimal Hand Use Unsupported Stance- Eyes Closed Safely, 10 seconds Unsupported Stance- Eyes Open Independent, 1 minute Reaching Forward Standing Confidently, 10 inches Pick- Up Object From Floor Independent/Safe Look Behind Shoulder - Standing Shifts Weight Well Turning 360 Degrees Turns slowly, but safely Unsupported Stance, Alternating Feet on (I)- 8 Steps in 20 secs Stair Unsupported Tandem Stance Balance Lost- Step/Stand Unilateral Leg Stance Lifts Leg/Unable to Hold Total Score Brown Total Score (out of 56 points) 43 Brown Impairment Rating 20 to 39% Impaired (Score 34- 44) PT-OP-E Functional Tests Start: 12/21/21 18:19 Freq: Status: Active Protocol: Document 02/21/22 13:07 SP (Rec: 02/21/22 14:05 SP [id number]) Functional Tests Other BROWN Score 50/56 Comment decrease SLS time 3sec R, 1sec L, see scanned form completed . PT-OP-G Mobility & Gait Start: 12/21/21 18:19 Freq: Status: Active Protocol: Document 12/27/21 14:38 LRN (Rec: 12/27/21 15:22 LRN [id number]) Stair Climbing Evaluation Evaluation Level of Assist On Stairs Independent Devices Stair Climbing Assistive Devices Left Railing,Right Railing Technique/Endurance Stair Climbing Direction Ascend and Descend Stair Climbing Technique Step Over Step Number of Steps Climbed 4 Stair Climbing Set # Repetitions (reps) 1 Comments Stair Climbing Comments Able to go Up stairs with R railing and downstairs with R railing. Pt jumps up when leading with RLE, moderately uncontrolled when going down leading with LLE and she rotates to the R. PT-OP-J Posture/Palpation/Skin Start: 12/21/21 18:19 Freq: Status: Active Protocol: Document 12/25/21 11:20 LRN (Rec: 12/25/21 12:37 LRN [id number]) Posture Evaluation Position Standing T-Spine Posture Flattened L-Spine Posture Increased Lordosis Shoulder Posture (L) Elevated Arm Posture (L) Internally Rotated,(R) Internally Rotated Hip Posture (L) Externally Rotated,(R) Externally Rotated PT-OP-K Range of Motion Start: 12/21/21 18:19 Freq: Status: Active Protocol: Document 12/25/21 11:20 LRN (Rec: 12/25/21 12:37 LRN [id number]) Ankle and Foot Goniometric Range of Motion Ankle and Foot Right Active Ankle/Foot ROM WFL No Testing Position Supine Dorsiflexion with Knee Extended 0 Eversion 10 Left Active Ankle/Foot ROM WFL No Testing Position Supine Dorsiflexion with Knee Extended 6 Eversion 28 PT-OP-M Strength Start: 12/21/21 18:19 Freq: Status: Active Protocol: Document 02/04/22 10:33 LRN (Rec: 02/04/22 11:22 LRN [id number]) Hip Strength Hip Manual Muscle Testing Right Flexion (L2) 5 Normal Extension (S1) 3 Fair Abduction 3+ Fair+ Adduction 5 Normal External Rotation 2 Poor Internal Rotation 4 Good Comments IR is painful in hip with AROM Left Flexion (L2) 5 Normal Extension (S1) 5 Normal Abduction 3- Fair- Adduction 5 Normal External Rotation 5 Normal Internal Rotation 3 Fair Knee Strength Knee Manual Muscle Testing Right Flexion (S2) 5 Normal Extension (L3) 5 Normal Left Flexion (S2) 5 Normal Extension (L3) 5 Normal Ankle/Foot Strength Ankle and Foot Manual Muscle Testing Right Dorsiflexion (L4) 5 Normal Plantarflexion (S1) 5 Normal Inversion 5 Normal Eversion (S1) 5 Normal Left Dorsiflexion (L4) 5 Normal Plantarflexion (S1) 5 Normal Inversion 5 Normal Eversion (S1) 5 Normal PT-OP-Q Treatments Start: 12/21/21 18:19 Freq: Status: Active Protocol: Document 03/12/22 10:31 LRN (Rec: 03/12/22 11:21 LRN [id number]) Therapeutic Exercises Sitting Exercises Hip IR strengthening Sitting Exercise Name Active hip IR Side left Reps/Minutes 15x 2 Comments V cuing on doing it as juan & isotonic as visiting w/friends . hip IR, ER T Sitting Exercise Name Stretch & Active Hip ER ( sliding lateral ankle up opp dodge&ankles crossed) Side right Reps/Minutes 60 H & 10x, 10x assisted sliding ankle up opp dodge, hip ER stretch Sitting Exercise Name R leg on table in ER for stretch, f/b active stretch Resistance AAROM stretch Comments improved post manual STM w/ PROM stretch Standing Exercises Hip Ext Standing Exercise Name Hip Ext Side bilateral Equipment Used Railing for phys cue for neutral pelvic positioning Reps/Minutes 6' Hip AB Standing Exercise Name Side step outs: Hip AB- L > R Side bilateral Reps/Minutes 6' Comments cued upright posture, TA neutral (pelvic cuing to correct for a L rot) Step ups/downs Standing Exercise Name fwd step ups/downs without & with TBand Side bilateral Resistance AROM Equipment Used // bars, mirror, TBand around R knee for resistance to AB Reps/Minutes 10x each Comments No pain in R hip Gait Training Gait Activity Gait on level Description Gait for R hip shift wiggle to R Surface Level Distance/Duration 2' Comments Pt able to wgt shift to R after training without v cuing for a few steps at a time. Gait on unlevel surface Description Gait on grass outside Level of Assistance v cuing for posture Surface grass Distance/Duration 3' Treatment Focus Normal walk mechanics Comments Starting wgt shift and hip wiggle to R on R side/trunk control/posture for normal gait. Neuro Re-Education Treatment Balance Activities SLS Details SLS Surface Unstabe & Firm Reps/Duration 6' Stepping over obstacles Details Fwd stepping over hurdles Equipment hurdles Reps/Duration x4 laps each Comments cued body alignment, occasional cue for core, able to perform without UE support for fwd walking. PT-OP-T Assessment and Plan Start: 12/21/21 18:19 Freq: Status: Active Protocol: Document 03/12/22 10:31 LRN (Rec: 03/12/22 11:21 LRN [id number]) Physical Therapy Assessment Goals Four Impairment Decreased balance with increased risk of falling Impairment SLS is 0 secs RLE, 1 sec LLE. TUG score is 17 secs (60<80% impaired, score 16-17) Short Term Goal (STG) Pt will be able to SLS no less than 5 secs bilaterally and TUG score 14-15 secs (50<60% impared). 01/09/22: progressing SLS 1-3 sec R and LLE; MET: TUs, 9s. 01/17/22: RLE 1-3sec, LLE 1-2 sec. 01/25/22: LLe 8 sec, 5sec; RLE 2-3 sec, 5 sec with papercup under opposite LE hovering over. 01/31/22: decreased to 2-4sec each LE but improved jamie stepping no UE support. (02/04/22: TUG is 12 secs. SLS (in Keds-type shoes): 1 sec LLE; 3 sec RLE 02/21/22: SLS LLE 3 sec, RLE 1 sec. 03/06/22: Shuttle balance: EC WBOS 30, 8 sec NBOS (hands hovering side rail) (02/28/22: SLS LLE 3 sec, RLE 3 sec) (03/04/22: SLS: L-5 sec, R-1 sec) STG Duration 02/07/22 (03/06/22: progressing) Char Filter Operator Goal (LTG) Improve TUG 12 secs or less ( 20<40% impaired score 12-13 secs; 1<20% impaired, score 11 ) 01/03/22: STS 1UE support 5 reps in 21sec, TU sec L UE to ascend chair, no UE descend slight plop in chair last 1. 01/09/22: GOAL MET: TUG 10s, 9s. TUG 12 secs. LTG Duration 03/25/22 (01/09/22: GOAL MET) Two Impairment LE weaknesss Short Term Goal (STG) Able to sit to drying frame operator a contolled manner without use of arms and equal WBing through the legs. 01/09/22: PRogressing: needs to use 1 UE 30% effort to come to stand. 01/17/22: progressin% 1 UE support come to stand, no UE descend,cued slow hip hinge complete to no flop last 1. Slow pacing, pause full stand and sit, 5 reps in 27s. 14s, little flop at bottom sit. 01/23/22: pt reports can perform 6 STS without UE support but needs 1 UE for 7th due to tiring. (02/04/22: Able to stand normal; sitting WB's more on LLE due to R hip pain). STG Duration 01/25/22 (02/04/22: MET GOAL) Char Filter Operator Goal (LTG) Increase hip AB/flex/Ext; knee margarito knee flex & R knee ext, & ankle strength 1 grade (4/5). (02/04/22: Margarito Knee and ankle strength is 5/5; Hip strength is decreased: R Ext/AB/ER>IR; L AB/IR) 02/21/22: added reverse clamshell and side step ups. LTG Duration 03/25/22 (02/21/22: Partially met goal) One Impairment Lacks appropriate self care HEP Alf Goal (LTG) Pt will be independent with a self care HEP. (12/27/21: HEP: Ankle DF in sit & stand and sitting ankle EV strengthening) (01/01/22: HEP: Gastroc & Soleus Stretch) 01/03/22: seated hip abd and ankle EV/PF/DF TB strengthening. (01/11/22: Added HEP: Hip AB in sup, sidelie & standing). 01/23/22: added step ups, band walk, fig 4 stretching 2 positions and self massage using ball on wall, effective feedback. 01/31/22: added resisted clamshell. 03/06/22: added resisted side hip abd. (03/12/22: I/S pt in ways to encorporate stretching/ strengthening throughout her day) LTG Duration 03/25/22 (04/01/22: Progressed) Progress Towards Goals Progress Comments Progressed self care program. Assessment Summary Assessment Pt ambulating without assistive devices (SPC or trek poles) with fairly good posture after cuing/training. Pt has better understanding on of how to encorporate ex into her daily routines after review of ex's. Much improved gait mechanics after training with pt demonstrating R hip shift and stable core/level shoulders. Physical Therapy Plan Frequency and Duration Frequency of Treatment 2x/Week Plan of Care Start Date 12/25/21 Plan of Care End Date 03/25/22 Next Visit Focus/Plan Next Note Type Treatment Note Next Visit Plan KX. PN next visit (03/14), assess SLS to recheck on return from her trip. 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 HEP: Balance. Focus: Balance & gait (uneven ground, hurdles)/HEP. Progress R hip ER: stretch & strengthening, and L hip IR stretch & strengthening. ( Sitting best position). Hip strengthening in areas of weakness (margarito hip AB, R Ext/ER & Margarito hip IR (L>R)), to assist normalizing gait and balance. Add: sport cord work for SLS balance and add unilateral shuttle recovery next tx if not limited on R hip pain.
--- NOTE | 2022-03-14 12:37 | PT.OTN ---
Current Diagnoses Muscle weakness (generalized) (03/14/22) Other abnormalities of gait and mobility (03/14/22) Unspecified fall, initial encounter (03/14/22) Activity, other involving muscle strengthening exercises (03/14/22) Physical Therapy Treatment Note PT-OP-A Visit Information Start: 12/21/21 18:19 Freq: Status: Active Protocol: Document 03/14/22 10:34 LRN (Rec: 03/14/22 12:36 LRN [id number]) Out-Patient Physical Therapy Visit Information Visit Information Visit Type Treatment Note Visit Note 10 after PN Visit Start Time 10:34 Visit Stop Time 11:17 Total Visit Minutes 43 Visit Number Evaluation Information Evaluation Date 12/25/21 Precautions Precautions Bilateral mastectomy - 2 yrs ago and had a small prosthesis added, and still taking cancer medication but no signs of cancer currently, uncontrolled blood pressure. PT-OP-B Current Condition Start: 12/21/21 18:19 Freq: Status: Active Protocol: Document 12/25/21 11:20 LRN (Rec: 12/25/21 12:37 LRN [id number]) Current Condition History of Current Condition Onset Date 4 months ago dizziness Current Complaints Weakness of the legs, fear of falling downstairs, sometimes balance problem History of Current Condition 3 months ago when waking the room was swimming. Dizziness went away and just the past 2 weeks ago it started again. Pt also notes after bending over (one event) to pick something up she had an episode of [facility] room spinning. She has not had any other experiences since that time. Last summer her kids noticed she was starting to hold onto things. She was not able to go down stairs without hanging onto the house. States she needed to hang onto something going down stairs due to weakness of the legs and fear of falling down the stairs. She denies fear of falling while walking around the house . Fell last week trying to kick her L shoe off her feet and fell onto the floor. States she will now sit on her bed to remove her shoes. Tries to be careful walking on uneven ground. Prior Treatments and Tests None Treatment Goals Patient/Caregiver Goals Pt is not sure of the goal. States her physician felt she needed therapy due to her need of grabbing railings, and her recent fall trying to kick her shoes off. Prior Functional Status Baseline Function- ADL's Independent Baseline Function- Mobility Independent Baseline Function- Recreation/Hobbies Able to clean house and garden without difficulty. Current Functional Impairments (Reported) Functional Limitations- ADL's Keeps house and gardens, no problems with these activities . Functional Limitations- Mobility/Gait Ambulates with lean to the right. Personal Factors Other Personal Factors That May Effect Active with gardening, Therapy/Recovery mastectomy in 06/2019 resulting from having large breasts to small implanted breasts. PT-OP-C Subjective Start: 12/21/21 18:19 Freq: Status: Active Protocol: Document 03/14/22 10:34 LRN (Rec: 03/14/22 12:36 LRN [id number]) OP-PT Subjective Patient Comments Patient Comments States she did do her exercises. Balance is feeling pretty good, much easier when not tired. Patient Questionnaires ABC- Activity Specific Balance Confidence Scale ABC Score 86.25 ABC Functional Impairment 1 to <20% Impaired (Score 81- 99) PT-OP-D Balance Start: 12/21/21 18:19 Freq: Status: Active Protocol: Document 01/01/22 12:36 LRN (Rec: 01/01/22 13:49 LRN [id number]) Brown Balance Assessment Evaluation Sitting to Standing Ability Independent w/out Hands Sitting Unsupported, Feet on Floor Safely- 2 minutes Standing to Sitting Ability Safely, Minimal Hand Use Transfer Ability Safely, Minimal Hand Use Unsupported Stance- Eyes Closed Safely, 10 seconds Unsupported Stance- Eyes Open Independent, 1 minute Reaching Forward Standing Confidently, 10 inches Pick- Up Object From Floor Independent/Safe Look Behind Shoulder - Standing Shifts Weight Well Turning 360 Degrees Turns slowly, but safely Unsupported Stance, Alternating Feet on (I)- 8 Steps in 20 secs Stair Unsupported Tandem Stance Balance Lost- Step/Stand Unilateral Leg Stance Lifts Leg/Unable to Hold Total Score Brown Total Score (out of 56 points) 43 Brown Impairment Rating 20 to 39% Impaired (Score 34- 44) PT-OP-E Functional Tests Start: 12/21/21 18:19 Freq: Status: Active Protocol: Document 02/21/22 13:07 SP (Rec: 02/21/22 14:05 SP [id number]) Functional Tests Other BROWN Score 50/56 Comment decrease SLS time 3sec R, 1sec L, see scanned form completed . PT-OP-G Mobility & Gait Start: 12/21/21 18:19 Freq: Status: Active Protocol: Document 12/27/21 14:38 LRN (Rec: 12/27/21 15:22 LRN [id number]) Stair Climbing Evaluation Evaluation Level of Assist On Stairs Independent Devices Stair Climbing Assistive Devices Left Railing,Right Railing Technique/Endurance Stair Climbing Direction Ascend and Descend Stair Climbing Technique Step Over Step Number of Steps Climbed 4 Stair Climbing Set # Repetitions (reps) 1 Comments Stair Climbing Comments Able to go Up stairs with R railing and downstairs with R railing. Pt jumps up when leading with RLE, moderately uncontrolled when going down leading with LLE and she rotates to the R. PT-OP-J Posture/Palpation/Skin Start: 12/21/21 18:19 Freq: Status: Active Protocol: Document 12/25/21 11:20 LRN (Rec: 12/25/21 12:37 LRN [id number]) Posture Evaluation Position Standing T-Spine Posture Flattened L-Spine Posture Increased Lordosis Shoulder Posture (L) Elevated Arm Posture (L) Internally Rotated,(R) Internally Rotated Hip Posture (L) Externally Rotated,(R) Externally Rotated PT-OP-K Range of Motion Start: 12/21/21 18:19 Freq: Status: Active Protocol: Document 12/25/21 11:20 LRN (Rec: 12/25/21 12:37 LRN [id number]) Ankle and Foot Goniometric Range of Motion Ankle and Foot Right Active Ankle/Foot ROM WFL No Testing Position Supine Dorsiflexion with Knee Extended 0 Eversion 10 Left Active Ankle/Foot ROM WFL No Testing Position Supine Dorsiflexion with Knee Extended 6 Eversion 28 PT-OP-M Strength Start: 12/21/21 18:19 Freq: Status: Active Protocol: Document 03/14/22 10:34 LRN (Rec: 03/14/22 12:36 LRN [id number]) Hip Strength Hip Manual Muscle Testing Right Flexion (L2) 5 Normal Extension (S1) 4- Good- Abduction 4- Good- Adduction 5 Normal External Rotation 5 Normal Internal Rotation 5 Normal Left Flexion (L2) 5 Normal Extension (S1) 4- Good- Abduction 3 Fair Adduction 5 Normal External Rotation 5 Normal Internal Rotation 3 Fair Knee Strength Knee Manual Muscle Testing Right Flexion (S2) 5 Normal Extension (L3) 5 Normal Left Flexion (S2) 5 Normal Extension (L3) 5 Normal Ankle/Foot Strength Ankle and Foot Manual Muscle Testing Right Dorsiflexion (L4) 5 Normal Plantarflexion (S1) 5 Normal Inversion 5 Normal Eversion (S1) 5 Normal Left Dorsiflexion (L4) 5 Normal Plantarflexion (S1) 5 Normal Inversion 5 Normal Eversion (S1) 5 Normal PT-OP-Q Treatments Start: 12/21/21 18:19 Freq: Status: Active Protocol: Document 03/14/22 10:34 LRN (Rec: 03/14/22 12:36 LRN [id number]) Therapeutic Exercises Supine Exercises Hip Flex Supine Exercise Name Hip Flex Side bilateral Comments MMT taken Prone Exercises Hip Ext Prone Exercise Name Hip Ext Side bilateral Reps/Minutes 15x 2 Comments ROM taken Sidelying Exercises Hip AD Sidelying Exercise Name Hip AD Side bilateral Reps/Minutes 1x Comments MMT taken Hip AB Sidelying Exercise Name Hip AB w/top pelvis in neutral training Side bilateral Reps/Minutes x10 Comments good stacked alignment and form, MMT taken Sitting Exercises Hip IR strengthening Sitting Exercise Name Active hip IR Side left Equipment Used Lev 1 TB Reps/Minutes 15x without and with TB Comments MMT taken hip IR, ER T Sitting Exercise Name Stretch & Active Hip ER ( sliding lateral ankle up opp dodge&ankles crossed) Side right Equipment Used GB for lifting R ankle to knee . Reps/Minutes 60 H & 10x, 15x assisted sliding ankle up opp dodge, Comments MMT taken before ex stretch & strengthening hip ER stretch Sitting Exercise Name R leg on table in ER for stretch, f/b active stretch Resistance AAROM stretch Comments improved post manual STM w/ PROM stretch Standing Exercises lunge adductor stretch Side right Equipment Used Counter Reps/Minutes 30 x2 Comments good feedback stretch as held Neuro Re-Education Treatment Balance Activities SLS Details SLS Bilaterally Surface Firm Reps/Duration 6' Self-Care/Home Management Treatment Education Patient Education Home Exercise Program Activities Self-Care/Home Management Activities Reviewed HEP areas to focus ex 's. Issued & reviewed HEP: Prone, standing hip ext strengthening with progression in standing to resisted TB strengthening. PT-OP-T Assessment and Plan Start: 12/21/21 18:19 Freq: Status: Active Protocol: Document 03/14/22 10:34 LRN (Rec: 03/14/22 12:36 LRN [id number]) Physical Therapy Assessment Goals Four Impairment Decreased balance with increased risk of falling Impairment SLS is 0 secs RLE, 1 sec LLE. TUG score is 17 secs (60<80% impaired, score 16-17) Short Term Goal (STG) Pt will be able to SLS no less than 5 secs bilaterally and TUG score 14-15 secs (50<60% impared). 01/09/22: progressing SLS 1-3 sec R and LLE; MET: TUs, 9s. 01/17/22: RLE 1-3sec, LLE 1-2 sec. 01/25/22: LLe 8 sec, 5sec; RLE 2-3 sec, 5 sec with papercup under opposite LE hovering over. 01/31/22: decreased to 2-4sec each LE but improved jamie stepping no UE support. (02/04/22: TUG is 12 secs. SLS (in Keds-type shoes): 1 sec LLE; 3 sec RLE 02/21/22: SLS LLE 3 sec, RLE 1 sec. 03/06/22: Shuttle balance: EC WBOS 30, 8 sec NBOS (hands hovering side rail) (02/28/22: SLS LLE 3 sec, RLE 3 sec) (03/04/22: SLS: L-5 sec, R-1 sec) (03/14/22: SLS is 4 secs biliaterally after several attempts). STG Duration 02/07/22 (03/14/22: NOT MET GOAL, pt happy with status) Retort Pre Cooker Goal (LTG) Improve TUG 12 secs or less ( 20<40% impaired score 12-13 secs; 1<20% impaired, score 11 ) 01/03/22: STS 1UE support 5 reps in 21sec, TU sec L UE to ascend chair, no UE descend slight plop in chair last 1. 01/09/22: GOAL MET: TUG 10s, 9s. TUG 12 secs. LTG Duration 03/25/22 (01/09/22: GOAL MET) Three Impairment Gait disturbance Impairment 01/01/22: BROWN score 43 (20-39 % impaired) 01/09/22: BROWN 46/56 Short Term Goal (STG) Pt will demonstrate appropriate use of an assistive device outside the home on unlevel surface (cane) with gait. (01/01/22: Gait training with SPC) 01/09/22: GOAL MET: able to walk on uneven incline/decline grass using trek pole appropriate in RUE patterning with LLE, decrease stance time on LLE noted but safe/ stable . STG Duration 01/11/22 (01/09/22: GOAL MET) Retort Pre Cooker Goal (LTG) Ability to walk on uneven surface (yard/garden) without fear of falling with a cane. (01/01/22: Gait training with SPC) 01/09/22: GOAL MET: able to walk out on lawn using wheelbarrel or gardening bag in 1 had and trek pole in other over the weekend without fear of falling. LTG Duration 03/25/22 (01/09/22: GOAL MET) Two Impairment LE weaknesss Short Term Goal (STG) Able to sit to intelligence analyst a contolled manner without use of arms and equal WBing through the legs. 01/09/22: PRogressing: needs to use 1 UE 30% effort to come to stand. 01/17/22: progressin% 1 UE support come to stand, no UE descend,cued slow hip hinge complete to no flop last 1. Slow pacing, pause full stand and sit, 5 reps in 27s. 14s, little flop at bottom sit. 01/23/22: pt reports can perform 6 STS without UE support but needs 1 UE for 7th due to tiring. (02/04/22: Able to stand normal; sitting WB's more on LLE due to R hip pain). STG Duration 01/25/22 (02/04/22: MET GOAL) Retort Pre Cooker Goal (LTG) Increase hip AB/flex/Ext; knee margarito knee flex & R knee ext, & ankle strength 1 grade (4/5). (02/04/22: Margarito Knee and ankle strength is 5/5; Hip strength is decreased: R Ext/AB/ER>IR; L AB/IR) 02/21/22: added reverse clamshell and side step ups. (03/14/22: Hip: Left AB & IR is 3/5, Ext is 4-/5; Right AB/ Ext 4-/5; all other hip strength is 5/5; Knee and ankle strength is 5/5). LTG Duration 03/25/22 (03/14/22: PARTIALLY MET GOAL, pt happy with status ) One Impairment Lacks appropriate self care HEP Assisted Goal (LTG) Pt will be independent with a self care HEP. (12/27/21: HEP: Ankle DF in sit & stand and sitting ankle EV strengthening) (01/01/22: HEP: Gastroc & Soleus Stretch) 01/03/22: seated hip abd and ankle EV/PF/DF TB strengthening. (01/11/22: Added HEP: Hip AB in sup, sidelie & standing). 01/23/22: added step ups, band walk, fig 4 stretching 2 positions and self massage using ball on wall, effective feedback. 01/31/22: added resisted clamshell. 03/06/22: added resisted side hip abd. (03/12/22: I/S pt in ways to encorporate stretching/ strengthening throughout her day) (03/14/22: I/S in HEP: SLS balance training) LTG Duration 03/25/22 (04/01/22: Progressed) Assessment Summary Assessment Pt overally has made very good progress with improving her gait stability and reductin her LE pain with movement. She achieved her gait goals, improved her balance (SLS) and made overall improvements in her LE strength. She has normal knee and ankle strength bilaterally and lacks normal hip strength with primarily hip rotation and AB/Ext. She ambulates with notable trunk sway, but is able to control her sway when concentrating on core engagement. She often needs cuing to engage her core; therefore in the future if she does not conscientiously engage her core and keep up with her HEP, she may need therapy in the future for core stabilization. The pt has a HEP to work on her areas of deficit, and she feels comfortable with her exercises ; therefore the pt is ready to be discharged to her HEP. Physical Therapy Plan Frequency and Duration Frequency of Treatment 2x/Week Plan of Care Start Date 12/25/21 Plan of Care End Date 08/15/22 Discharge Physical Therapy Discharge Comments Pt met most of her goals and feels comfortable progressing on her own with her HEP to achieve the remaining goals. Possible need for therapy in the future of core stabilization if her excessive trunk sway with gait creates onset of LBP or LE pain. Thank you for your referral.
== END 2022-03-19 11:03 ==
LOC: PHYS 10:30
PROVIDERS: Family Provider Nurse Practitioner; PCP Nurse Practitioner; Referring Provider Nurse Practitioner; Visit Provider Nurse Practitioner
DX: R26.89 Other abnormalities of gait and mobility (principal); W19.XXXA Unspecified fall, initial encounter; Y93.B9 Activity, other involving muscle strengthening exercises; M62.81 Muscle weakness (generalized)
CPT/HCPCS: 97110; 97112; 97116; 97140; 97162; 97535

== ENCOUNTER → 2023-01-13 11:33 | Outpatient (CLI) | payer MEDICARE, OTHER, SELFPAY ==
--- NOTE | 2023-01-13 11:34 | DI.RAD.S_ITS ---
PROCEDURE: XR RIBS LT MIN 3V W CXR1V INDICATIONS: Left posterior rib pain after fall TECHNIQUE: 2 views of the left ribs were acquired, along with a single view chest. Motion artifact on 1 of the views. COMPARISON: None. FINDINGS: Surgical changes and devices: Breast clips. Bones and chest wall: No fractures or dislocations. No suspicious bony lesions. Overlying soft tissues appear unremarkable. Lungs and pleura: No pleural effusions or pneumothorax. Lungs appear clear. Mediastinum: Mediastinal contours appear normal. Heart size is normal. IMPRESSION: No displaced rib fracture identified. No acute cardiopulmonary abnormality. Dictated by: Og Boyle M.D. on 01/13/2023 at 14:29 Approved by: Og Boyle M.D. on 01/13/2023 at 14:33
== END ==
PROVIDERS: Family Provider Nurse Practitioner; PCP Nurse Practitioner; Referring Provider Physician Assistant; Visit Provider Physician Assistant
DX: R07.81 Pleurodynia (principal)
CPT/HCPCS: 71101

== ENCOUNTER → 2023-02-03 15:30 | Outpatient (CLI) | payer MEDICARE, OTHER, SELFPAY ==
[2023-02-03 17:43] LABS: Alanine Aminotransferase 23 IU/L (<35); Albumin 4.5 g/dL (3.5-5.0); Albumin Globulin Ratio 1.4 (1.0-2.8); Alkaline Phosphatase 64 U/L (38-126); Aspartate Aminotransferase 24 IU/L (14-36); BUN Creatinine Ratio 21.7 (6-22); Bilirubin Total 0.5 mg/dL (0.2-1.3); Blood Urea Nitrogen 13 mg/dL (7-17); Calcium 9.5 mg/dL (8.4-10.2); Carbon Dioxide 26 mmol/L (22-32); Chloride 105 mmol/L (98-107); Cholesterol 194 mg/dL (140-199); Estimated Glomerular Filt Rate > 60 mL/min (>60); Globulin 3.3 g/dL (1.7-4.1); Glucose 89 mg/dL (80-110); HDL Cholesterol 64 mg/dL (40-60); HEMOLYSIS < 15 (0-50); LDL Cholesterol Calculated 96 mg/dL (<100); Potassium 3.8 mmol/L (3.4-5.1); Sodium 140 mmol/L (137-145); Total Protein 7.8 g/dL (6.3-8.2); Triglycerides 169 mg/dL (35-150)
[2023-02-03 17:58] LABS: Free T3, Triiodothyronine Free 5.71 pg/mL (2.77-5.27); Free T4, Direct Thyroxine 1.44 ng/dL (0.78-2.19)
[2023-02-03 18:07] LABS: Creatinine Urine Random 21.8 mg/dL
[2023-02-03 18:12] LABS: Thyroid Stimulating Hormone 1.25 uIU/mL (0.47-4.68)
[2023-02-03 18:36] LABS: Microalbumin Urine Random < 0.6 mg/dL (0-1.6)
== END ==
PROVIDERS: Family Provider Nurse Practitioner; PCP Nurse Practitioner; Referring Provider Nurse Practitioner; Visit Provider Nurse Practitioner
DX: E78.5 Hyperlipidemia, unspecified (principal); M81.0 Age-related osteoporosis without current pathological fracture; R03.0 Elevated blood-pressure reading, without diagnosis of hypertension; Z79.899 Other long term (current) drug therapy
CPT/HCPCS: 36415; 80053; 80061; 82043; 82570; 84439; 84443; 84481

== ENCOUNTER 2023-10-29 13:14 | Emergency (ER) | payer MEDICARE, OTHER, SELFPAY ==
[2023-10-29 13:18] VITALS: BP 167/78; PULSE 72; RESP 16; TEMP 37; O2SAT 97; BMI 25.4
--- NOTE | 2023-10-29 13:23 | DI.RAD.S_ITS ---
PROCEDURE: XR FINGER RT MIN 2V INDICATIONS: injury/pain/deformed TECHNIQUE: AP hand, 2 views of the right 3rd finger(s) acquired. COMPARISON: None. FINDINGS: Bones: There is ulnar dislocation of the right 3rd finger at the level of the proximal interphalangeal joint. Small ossific fragments noted over the ulnar side of the 3rd PIP joint with donor site either from the head of the proximal phalanx or base of the middle phalanx. Moderate background polyarticular degenerative changes of the right hand involving multiple proximal interphalangeal and distal interphalangeal joints as well as the triscaphe joint and 1st carpometacarpal joint. Degenerative changes of the metacarpophalangeal joints of the thumb, 2nd, and 3rd digits. Soft tissues: No suspicious soft tissue calcifications. IMPRESSION: Fracture, dislocation of the right 3rd finger at the level of the proximal phalangeal joint. There are small ossific fragments noted at the ulnar side of the PIP joint with donor site either the head of the proximal phalanx versus the base of the middle phalanx. A definite donor site not identified. Dictated by: Reginald Miller M.D. on 10/29/2023 at 14:03 Approved by: Reginald Miller M.D. on 10/29/2023 at 14:05
[2023-10-29] MEDS: LIDOCAINE 2% INJ MDV 20ML 20 ML INJ (13:44)
--- NOTE | 2023-10-29 13:58 | DI.RAD.S_ITS ---
PROCEDURE: XR FINGER RT MIN 2V INDICATIONS: post- reduction right 3rd finger TECHNIQUE: AP hand, 2 views of the 3rd finger(s) acquired. COMPARISON: [facility], , XR FINGER RT MIN 2V, 10/29/2023, 13:24. FINDINGS: Bones: There is interval reduction of earlier noted 3rd PIP joint dislocation. Anatomic 3rd digit alignment is seen. Small calcifications are noted along ulnar aspect or dislocation of 3rd PIP joint suggestive of age indeterminate avulsion injuries. No new fracture is seen. 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 Soft tissues: No other suspicious soft tissue calcifications. IMPRESSION: Interval reduction of earlier noted 3rd PIP joint dislocation with near anatomic 3rd finger alignment. Age indeterminate avulsion injury involving ulnar aspect of 3rd PIP joint with small calcifications. No new fracture or dislocation. Dictated by: Carmelo Bahena M.D. on 10/29/2023 at 16:11 Approved by: Carmelo Bahena M.D. on 10/29/2023 at 16:13
--- NOTE | 2023-10-29 14:11 | ED.UPPEXIN ---
HPI - Extremity Injury (Upper) <Lexi Tinoco PA-C - Last Filed: 10/29/23 18:48> General Chief Complaint: Extremity Injury, Upper Stated Complaint: injured middle finger R hand Time Seen by Provider: 10/29/23 13:40 Source: patient Mode of arrival: Wheelchair History of Present Illness HPI narrative: Patient is an 83-year-old who fell backwards down 1 step and caught herself with her right hand outstretched in order to not hit her head. She immediately felt pain in her right middle finger and noticed a visible deformity. She denies hitting her head or having LOC. she immediately came to the emergency room. Related Data Home Medications Medication Instructions Recorded Confirmed aspirin 81 mg tablet,delayed 81 mg PO QDAY ##0 01/12/13 11/20/21 release lutein 20 mg tablet 20 mg PO DAILY 02/17/18 11/20/21 cholecalciferol (vitamin D3) 125 5,000 unit PO DAILY 10/07/19 11/20/21 mcg (5,000 unit) tablet (Vitamin D3) multivitamin 1 cap PO DAILY 10/07/19 11/20/21 letrozole 2.5 mg tablet (Femara) 2.5 mg PO DAILY 10/31/20 11/20/21 B Complex 1 cap PO .QD 02/03/23 02/03/23 Calcium 1 tab PO DAILY 02/03/23 Vit E 1 cap PO DAILY 02/03/23 Previous Rx's Medication Instructions Recorded rosuvastatin 10 mg tablet See Rx Instructions .Route 02/03/23 .COMPLEX #90 tabs tolterodine 4 mg capsule,extended See Rx Instructions .Route 02/03/23 release 24 hr .COMPLEX #90 caps Allergies Allergy/AdvReac Type Severity Reaction Status Date / Time No Known Drug Allergies Allergy Verified 02/03/23 14:38 Review of Systems <Lexi Tinoco PA-C - Last Filed: 10/29/23 18:48> Review of Systems ROS Unobtainable: All systems reviewed & are unremarkable except as noted in HPI and below Patient History <Lexi Tinoco PA-C - Last Filed: 10/29/23 18:48> Medical History Elevated blood pressure reading in office with white coat syndrome, without diagnosis of hypertension Hyperlipidemia 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 Screening for colon cancer Urinary frequency Bladder prolapse Atrophy of vagina Eczema Osteopenia Rubella Measles Chicken pox Cataracts, bilateral (~2013) Fibroids History of urinary incontinence Essential tremor Breast cancer (~2006) Breast cancer Surgical History H/O left mastectomy Anesthesia History of colonoscopy History of back surgery (~1982) History of hysterectomy (~1988) Hammer toe (~2015) History of oral surgery (~12/2018) Family History Father Cancer Mother History of heart disease Brother Hypertension Sister Hyperlipidemia Hypertension Grandfather Cancer Grandmother Hypertension Grandfather Kidney failure Family/Other Suicide Social History marital status: number of children: 4 household members: spouse education level: other occupational status: other Previous occupational history: retired Smoking Status: Former smoker alcohol intake: current substance use type: does not use Smoking Status: Former smoker alcohol intake frequency: a few times a week Substance Use Type: does not use Exam <Lexi Tinoco PA-C - Last Filed: 10/29/23 18:48> Narrative Exam Narrative: GENERAL: 83 year old patient appears stated age. Well-developed patient, in no acute distress. NEURO: AOx3. HEAD: Atraumatic. Normocephalic. RESPIRATORY: No increased work of breathing EXTREMITIES: Visible deformity of the PIP joint of the right 3rd finger. No open wound. SKIN: No rash or erythema of visible areas Initial Vital Signs Initial Vital Signs: Vital Signs Temperature 98.6 F 10/29/23 13:18 Pulse Rate 72 10/29/23 13:18 Respiratory Rate 16 10/29/23 13:18 Blood Pressure 167/78 H 10/29/23 13:18 Pulse Oximetry 97 10/29/23 13:18 Oxygen Delivery Method Room Air 10/29/23 13:18 <Xiomara Stahl MD - Last Filed: 10/30/23 07:55> Initial Vital Signs Initial Vital Signs: Vital Signs Temperature 98.6 F 10/29/23 13:18 Pulse Rate 72 10/29/23 13:18 Respiratory Rate 16 10/29/23 13:18 Blood Pressure 167/78 H 10/29/23 13:18 Pulse Oximetry 97 10/29/23 13:18 Oxygen Delivery Method Room Air 10/29/23 13:18 Procedures <Lexi Tinoco PA-C - Last Filed: 10/29/23 18:48> Orthopedic Joint Reduction Joint #1: Side: right Joint Reduction Location: finger Analgesia: none (Digital block) Local Anesthesia: lidocaine 2% Amount of anesthesic used (mL): 2.5 Technique used: traction/counter-traction Post-reduction neuro exam: intact Post-reduction vascular: intact Post Reduction X-Ray Obtained: Yes Post Reduction X-Ray Results: reduced Splint Applied: Yes Patient Tolerated Procedure: Well and No complications Course <Leix Tinoco PA-C - Last Filed: 10/29/23 18:48> Orders Ordered: Discontinued Medications Lidocaine HCl (Lidocaine 2% Inj Mdv 20ml) 20 ml INJ INTRA-OP ONE Stop: 10/29/23 13:41 Last Admin: 10/29/23 13:44 Dose: 20 ml Documented By: JUSTYNA Vital Signs Vital signs: Vital Signs - 8 hr 10/29/23 13:18 10/29/23 14:30 Temperature 98.6 F Pulse Rate 72 65 Respiratory Rate 16 18 Blood Pressure 167/78 H 188/86 H Pulse Oximetry 97 97 Oxygen Delivery Method Room Air Room Air <Xiomara Stahl MD - Last Filed: 10/30/23 07:55> Orders Ordered: Discontinued Medications Lidocaine HCl (Lidocaine 2% Inj Mdv 20ml) 20 ml INJ INTRA-OP ONE Stop: 10/29/23 13:41 Last Admin: 10/29/23 13:44 Dose: 20 ml Documented By: JUSTYNA Vital Signs Vital signs: Vital Signs - 8 hr 10/29/23 13:18 10/29/23 14:30 Temperature 98.6 F Pulse Rate 72 65 Respiratory Rate 16 18 Blood Pressure 167/78 H 188/86 H Pulse Oximetry 97 97 Oxygen Delivery Method Room Air Room Air MDM - Extremity Injury (Upper) <Lexi Tinoco PA-C - Last Filed: 10/29/23 18:48> Imaging Data Extremity x-ray #1: Radiologist's Impression: PROCEDURE: XR FINGER RT MIN 2V INDICATIONS: injury/pain/deformed TECHNIQUE: AP hand, 2 views of the right 3rd finger(s) acquired. COMPARISON: None. FINDINGS: Bones: There is ulnar dislocation of the right 3rd finger at the level of the proximal interphalangeal joint. Small ossific fragments noted over the ulnar side of the 3rd PIP joint with donor site either from the head of the proximal phalanx or base of the middle phalanx. Moderate background polyarticular degenerative changes of the right hand involving multiple proximal interphalangeal and distal interphalangeal joints as well as the triscaphe joint and 1st carpometacarpal joint. Degenerative changes of the metacarpophalangeal joints of the thumb, 2nd, and 3rd digits. Soft tissues: No suspicious soft tissue calcifications. IMPRESSION: Fracture, dislocation of the right 3rd finger at the level of the proximal phalangeal joint. There are small ossific fragments noted at the ulnar side of the PIP joint with donor site either the head of the proximal phalanx versus the base of the middle phalanx. A definite donor site not identified. Dictated by: Reginald Miller M.D. on 10/29/2023 at 14:03 Approved by: Reginald Miller M.D. on 10/29/2023 at 14:05 POST-REDUCTION: PROCEDURE: XR FINGER RT MIN 2V INDICATIONS: post- reduction right 3rd finger TECHNIQUE: AP hand, 2 views of the 3rd finger(s) acquired. COMPARISON: [facility], , XR FINGER RT MIN 2V, 10/29/2023, 13:24. FINDINGS: Bones: There is interval reduction of earlier noted 3rd PIP joint dislocation. Anatomic 3rd digit alignment is seen. Small calcifications are noted along ulnar aspect or dislocation of 3rd PIP joint suggestive of age indeterminate avulsion injuries. No new fracture is seen. 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 Soft tissues: No other suspicious soft tissue calcifications. IMPRESSION: Interval reduction of earlier noted 3rd PIP joint dislocation with near anatomic 3rd finger alignment. Age indeterminate avulsion injury involving ulnar aspect of 3rd PIP joint with small calcifications. No new fracture or dislocation. Dictated by: Carmelo Bahena M.D. on 10/29/2023 at 16:11 Approved by: Carmelo Bahena M.D. on 10/29/2023 at 16:13 [facility] Narrative Medical decision making narrative: Multiple etiologies for patient's symptoms considered including, but not limited to: Dislocation, fracture, sprain Patient with visible deformity of the right 3rd finger at the PIP joint. Attempted reduction x1 without anesthetic but patient did not tolerate it. Digital block administered as documented above. Patient tolerated 2nd attempt well with a pop felt after reduction. Patient should able to bend the finger and the finger now appears appropriately aligned. Postreduction x-rays show good alignment. PIP joint splinted leaving the MCP and PIP joints free. Patient instructed to wear the splint for 2 weeks and then vannesa tape for 2 weeks. There does appear to be a small fracture in association with the dislocation. I do not suspect patient will need orthopedic follow up. I anticipate that the site wile heal well with conservative treatment. Advised continue ice and Tylenol for pain. Patient's symptoms improved over duration of stay with above-stated therapies. Findings and discharge diagnosis discussed with patient/family followed by verbalization of understanding Return precautions discussed with patient/family whom verbalize understanding of diagnosis and plan Discharge Plan Departure Patient Disposition: Home Clinical Impression: Dislocation of finger, interphalangeal joint, right, closed Qualifiers: Encounter type: initial encounter Qualified Code(s): S63.279A - Dislocation of unspecified interphalangeal joint of unspecified finger, initial encounter Instructions: DI for Finger Dislocation Activity Restrictions/Additional Instructions: *You have been diagnosed with right 3rd finger PIP (middle knuckle) joint dislocation with associated small fracture. The 2nd set of x-ray shows the joint is back in good alignment. Please wear the provided splint for 2 weeks, followed by 2 weeks of vannesa taping the 3rd and 4th fingers together to provide support to the joint. You do not have to wear the splint 24 hours a day, you can remove it for bathing. Continue to use ice for 15 minutes every 1-2 hours while awake for the next 2-3 days. Keep the finger elevated to decrease swelling. Take Tylenol for pain. If the pain is not improving or you develop new symptoms, please return to reassessment or see your primary care. This injury should recover well but if you have any concerns about how it is healing, you can see an orthopedic doctor; I have attached their contact information below.. *What to do: *Please continue to take your regular medications as directed. [ ] New medication prescriptions sent to your pharmacy: [ ] [ ] New medication written as a paper prescription [x] No new medications given *Please follow up with your primary care provider in 2-3 days, call for an appointment. Let them know you were seen in the Emergency Department and that we ask that you be seen in follow up. We will electronically transmit a record of today's note if your PCP is in our system *If you do not have a primary care provider please contact the [facility] Resource line at [phone]. They will ask some questions about your medical history and help get you set up with a doctor in the community. *Return to Emergency Department if you should have any new, worsening or concerning symptoms, such as [fever greater than 101 F, shaking chills, worsening pain, persistent vomiting or other concerning symptoms]. Prescriptions: No Action aspirin 81 MG tablet,delayed release (DR/EC) 81 mg PO QDAY Qty: 0 Vit E 1 cap PO DAILY B Complex 1 cap PO .QD Calcium 1 tab PO DAILY rosuvastatin 10 mg tablet See Rx Instructions .ROUTE .COMPLEX Qty: 90 3RF Dose Instruction: Take 1 tablet by mouth once daily for high cholesterol. Rx Instructions: Take 1 tablet by mouth once daily for high cholesterol. tolterodine 4 mg capsule,extended release 24hr See Rx Instructions .ROUTE .COMPLEX Qty: 90 3RF Dose Instruction: TAKE ONE CAPSULE BY MOUTH ONE TIME DAILY for urge incontinence Rx Instructions: TAKE ONE CAPSULE BY MOUTH ONE TIME DAILY for urge incontinence letrozole [Femara] 2.5 mg tablet 2.5 mg PO DAILY lutein 20 mg Tablet 20 mg PO DAILY multivitamin Capsule 1 cap PO DAILY cholecalciferol (vitamin D3) [Vitamin D3] 125 mcg (5,000 unit) Tablet 5,000 unit PO DAILY Referrals: [facility] [Provider Group] Kia Fields ARNP [Primary Care Provider] - Stand Alone Forms: Patient Portal/API ED Sign-out <Xiomara Stahl MD - Last Filed: 10/30/23 07:55> Cosign ED Attending Cosignature Attestation: I was immediately available in the department for consultation throughout this patient's visit. Xiomara Stahl MD
[2023-10-29 14:30] VITALS: BP 188/86; PULSE 65; RESP 18; O2SAT 97
== END 2023-10-29 14:35 | disposition home or self-care (01) ==
PROVIDERS: Emergency Provider Physician Assistant; Family Provider Nurse Practitioner; PCP Nurse Practitioner
DX: S63.282A Dislocation of proximal interphalangeal joint of right middle finger, initial encounter (principal); W10.9XXA Fall (on) (from) unspecified stairs and steps, initial encounter
CPT/HCPCS: 26770; 73140; 99282; 99283

== ENCOUNTER → 2024-02-09 14:32 | Outpatient (CLI) | payer MEDICARE, OTHER, SELFPAY ==
[2024-02-09 15:01] LABS: Add Manual Diff / Slide Review NO; Basophils Absolute Auto 100 /uL (0-100); Basophils Percent Auto 0.9 % (0-2); Eosinophils Absolute Auto 100 /uL (0-450); Eosinophils Percent Auto 1.3 % (2-4); Hematocrit 39.6 % (36-46); Hemoglobin 13.4 g/dL (12.0-16.0); Lymphocytes Absolute Auto 2000 /uL (1100-4500); Lymphocytes Percent Auto 36.1 % (25-40); Mean Corpuscular HGB Conc 33.9 % (30-36); Mean Corpuscular Hemoglobin 32.5 PG (26-34); Monocytes Absolute Auto 800 /uL (0-900); Monocytes Percent Auto 14.5 % (3-14); Neutrophils Absolute Auto 2600 /uL (1500-7000); Neutrophils Percent Auto 47.2 % (50-75); Platelet Count 207 X10^3/uL (150-400); Red Blood Cell Count 4.13 X10^6/uL (4.0-5.2); Red Cell Distribution Width 13.8 % (11.6-14.8); White Blood Cell Count 5.5 X10^3/uL (4.5-11.0)
[2024-02-09 15:17] LABS: HEMOLYSIS < 15 (0-50); Potassium 3.8 mmol/L (3.4-5.1)
[2024-02-09 15:19] LABS: Alanine Aminotransferase 20 IU/L (<35); Albumin 4.4 g/dL (3.5-5.0); Albumin Globulin Ratio 1.4 (1.0-2.8); Alkaline Phosphatase 59 U/L (38-126); Aspartate Aminotransferase 25 IU/L (14-36); BUN Creatinine Ratio 23.1 (6-22); Bilirubin Total 0.7 mg/dL (0.2-1.3); Blood Urea Nitrogen 15 mg/dL (7-17); Calcium 8.9 mg/dL (8.4-10.2); Carbon Dioxide 23 mmol/L (22-32); Chloride 109 mmol/L (98-107); Cholesterol 208 mg/dL (140-199); Estimated Glomerular Filt Rate > 60 mL/min (>60); Globulin 3.1 g/dL (1.7-4.1); Glucose 99 mg/dL (80-110); HDL Cholesterol 87 mg/dL (40-60); LDL Cholesterol Calculated 101 mg/dL (<100); Sodium 139 mmol/L (137-145); Total Protein 7.5 g/dL (6.3-8.2); Triglycerides 102 mg/dL (35-150)
[2024-02-09 16:00] LABS: Free T3, Triiodothyronine Free 4.02 pg/mL (2.77-5.27); Free T4, Direct Thyroxine 1.21 ng/dL (0.78-2.19)
[2024-02-09 16:14] LABS: Thyroid Stimulating Hormone 0.791 uIU/mL (0.47-4.68)
== END ==
PROVIDERS: Family Provider Nurse Practitioner; PCP Nurse Practitioner; Referring Provider Nurse Practitioner; Visit Provider Nurse Practitioner
DX: E78.5 Hyperlipidemia, unspecified (principal); M81.0 Age-related osteoporosis without current pathological fracture; R03.0 Elevated blood-pressure reading, without diagnosis of hypertension; Z79.899 Other long term (current) drug therapy
CPT/HCPCS: 80053; 80061; 84439; 84443; 84481; 85025

== ENCOUNTER 2024-10-13 15:20 | Emergency (ER) | payer MEDICARE, OTHER, SELFPAY ==
[2024-10-13 15:22] VITALS: BP 155/91; PULSE 78; RESP 16; TEMP 36.9; O2SAT 97; BMI 26.4
--- NOTE | 2024-10-13 15:37 | ED_ITS ---
<Statement entered by Hitesh Romano DO - 10/13/24 17:23> Dr. Romano: I was immediately available in the department for consultation. I did not actually see the patient. HPI - Fall General Chief Complaint: Fall Stated Complaint: Fell, took garden tool to eyebrow Time Seen by Provider: 10/13/24 15:37 Source: patient Mode of arrival: Ambulatory History of Present Illness HPI Narrative: this is a 84-year-old female presenting to the emergency department due to A mechanical ground level fall she fell backwards hitting the back of her head in the dirt while gardening. She had not lose conscious. This happened roughly 3 hours ago. When she was falling a metal garden tool ended up hitting her left eyebrow area causing a small soft tissue injury. There was no loss of conscious, she denies any dizziness, nausea, vomiting, slurred speech, or any other concerning signs or symptoms. Not on blood thinners. No other pain to the rest of her body. Related Data Home Medications Medication Instructions Recorded Confirmed aspirin 81 mg tablet,delayed 81 mg PO QDAY ##0 01/12/13 06/29/24 release lutein 20 mg tablet 20 mg PO DAILY 02/17/18 06/29/24 cholecalciferol (vitamin D3) 125 5,000 unit PO DAILY 10/07/19 06/29/24 mcg (5,000 unit) tablet (Vitamin D3) multivitamin 1 cap PO DAILY 10/07/19 06/29/24 letrozole 2.5 mg tablet (Femara) 2.5 mg PO DAILY 10/31/20 06/29/24 B Complex 1 cap PO .QD 02/03/23 06/29/24 Calcium 1 tab PO DAILY 02/03/23 06/29/24 Vit E 1 cap PO DAILY 02/03/23 06/29/24 Previous Rx's Medication Instructions Recorded tolterodine 4 mg capsule,extended See Rx Instructions .Route 02/09/24 release 24 hr .COMPLEX #90 caps rosuvastatin 10 mg tablet 10 mg PO DAILY for cholesterol #90 06/29/24 tabs Allergies Allergy/AdvReac Type Severity Reaction Status Date / Time No Known Drug Allergies Allergy Verified 06/29/24 15:11 Review of Systems Review of Systems Narrative: GENERAL: Denies chills, fatigue, malaise, fever, sweats. HEENT: Denies sinus pain, ear pain, sore throat, difficulty swallowing, dizziness. RESPIRATORY: Denies dyspnea, cough, wheezing, hemoptysis, sputum. CARDIOVASCULAR: Denies chest pain, palpitations, orthopnea, edema, GASTROINTESTINAL: Denies nausea, vomiting, abdominal pain, diarrhea, constipation, melena. : Denies dysuria, frequency, incontinence, hematuria, urinary retention. MUSCULOSKELETAL: left facial pain SKIN: left eyebrow abrasion NEUROLOGIC: Denies weakness, headache, numbness, change in speech, confusion, seizures, incoordination. PSYCHIATRIC: No concerning psychosocial issues. 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 Screening for colon cancer Urinary frequency Bladder prolapse Atrophy of vagina Eczema Osteopenia Rubella Measles Chicken pox Cataracts, bilateral (~2013) Fibroids History of urinary incontinence Essential tremor Breast cancer (~2006) Breast cancer Surgical History (Updated 06/11/24 @ 13:04 by Jami Wolfe [facility]) H/O bilateral mastectomy (~07/10/20) Anesthesia History of colonoscopy History of back surgery (~1982) History of hysterectomy (~1988) Hammer toe (~2015) History of oral surgery (~12/2018) Family History Father Cancer Mother History of heart disease Brother Hypertension Sister Hyperlipidemia Hypertension Grandfather Cancer Grandmother Hypertension Grandfather Kidney failure Family/Other Suicide Social History marital status: number of children: 4 household members: spouse education level: other occupational status: other Previous occupational history: retired Smoking Status: Former smoker alcohol intake: current substance use type: does not use Smoking Status: Former smoker alcohol intake frequency: a few times a week Exam Narrative Exam Narrative: GENERAL: Well-developed patient, in mild distress. HEAD: Mild tenderness to palpation to the orbital bones surrounding of the left eye EYES: Pupils equal round and reactive. Extraocular motions intact. No scleral icterus. No injection or drainage. ENT: Nose without bleeding, purulent drainage. Throat without erythema, tonsillar hypertrophy or exudate. Airway patent. NECK: Trachea midline. Non tender EXTREMITIES: No edema or joint tenderness. NEURO: AOx3. SKIN: 1 cm laceration to the left eyebrow area. Has some ecchymosis just superior to the left eye. No evidence of globe damage. Initial Vital Signs Initial Vital Signs: Vital Signs Temperature 98.5 F 10/13/24 15:22 Pulse Rate 78 10/13/24 15:22 Respiratory Rate 16 10/13/24 15:22 Blood Pressure 155/91 H 10/13/24 15:22 Pulse Oximetry 97 10/13/24 15:22 Oxygen Delivery Method Room Air 10/13/24 15:22 Procedures Laceration Repair Laceration 1: Time of procedure: 17:00 Site: other ( left eyebrow) Size (cm): 1 Description: linear Depth: simple, single layer Local Anesthetic: lidocaine 1% and with epi Amount of anesthesia used (mL): 2 Pre-repair: irrigated extensively Skin layer closed with: nylon Skin layer suture size: 6-0 Number of sutures: 3 Technique: simple, interrupted Course Orders Ordered: ED Orders 10/13/24 15:48 CT cervical spine wo con Stat CT facial bones wo con Stat CT head/brain wo con Stat Discontinued Medications Diphtheria/Tetanus/Acell Pertussis (Tet,Diph,Pertuss(Acell),Vac/Pf 0.5 Ml Syri nge) 0.5 ml IM .ONCE ONE Stop: 10/13/24 15:41 Last Admin: 10/13/24 15:48 Dose: 0.5 ml Vital Signs Vital signs: Vital Signs - 8 hr 10/13/24 15:22 Temperature 98.5 F Pulse Rate 78 Respiratory Rate 16 Blood Pressure 155/91 H Pulse Oximetry 97 Oxygen Delivery Method Room Air MDM - Fall Imaging Data CT scan - head: Radiologist's Impression: [address] [address] [address] Scan Report Signed Patient: Danica Gutierrez MR#: [id number] : 1940 Acct:[id number] Age/Sex: 84 / F Date of Service: 10/13/24 Loc: ED Accession Number: [id number] Procedure: CT head/brain wo con Ordering Provider: Robin Roper PA-C PROCEDURE: CT HEAD/BRAIN WO CON INDICATIONS: Head injury TECHNIQUE: Noncontrast 4.5 mm thick angled axial sections acquired from the foramen magnum to the vertex, with coronal and sagittal reformats. For radiation dose reduction, the following was used: automated exposure control, adjustment of mA and/or kV according to patient size. COMPARISON: [facility], CT, HEAD WITHOUT CONTRAST, 07/31/2015, 14:59. FINDINGS: Image quality: Diagnostic. CSF spaces: Basal cisterns are patent. No extra-axial fluid collections. The ventricles are symmetric in size and shape. Brain: No intracranial bleeds or masses. There is cerebral volume loss for age, with resultant ventricular and sulcal prominence. There are moderate to severe, age-appropriate periventricular and deep white matter chronic small vessel ischemic changes. There is intracranial internal carotid artery atherosclerosis. Skull and face: Calvarium and visualized facial bones appear intact, without suspicious lesions. Sinuses: Visualized sinuses and mastoids are clear. IMPRESSION: 1. No acute intracranial process. 2. Age-related volume loss and moderate to severe small vessel ischemic change. Dictated by: Dilshad Feliciano M.D. on 10/13/2024 at 16:26 Approved by: Dilshad Feliciano M.D. on 10/13/2024 at 16:[address]: Radiologist's Impression: [place] [address] CT Scan Report Signed Patient: Danica Gutierrez MR#: [id number] : 1940 Acct:[id number] Age/Sex: 84 / F Date of Service: 10/13/24 Loc: ED Accession Number: [id number] Procedure: CT facial bones wo con Ordering Provider: Robin Roper PA-C PROCEDURE: CT FACIAL BONES WO CON INDICATIONS: L orbital bone bruising after trauma TECHNIQUE: Noncontrast 2.5 mm thick axial images acquired from the mandible through the frontal sinuses, with coronal and sagittal reformatting. For radiation dose reduction, the following was used: automated exposure control, adjustment of mA and/or kV according to patient size. COMPARISON: [facility], CT, HEAD WITHOUT CONTRAST, 07/31/2015, 14:59. [facility], CT, CT HEAD/BRAIN WO CON, 10/13/2024, 16:09. FINDINGS: Image quality: Excellent. Bones and teeth: Orbital renteria are intact. Sinus renteria show no fracture or deformity. Nasal bones and septum are intact. Visualized portions of the mandible demonstrate no fractures or subluxation. Zygomatic arches are intact. Pterygoid plates are intact. Visualized portions of the skull base and auditory canals are intact. Sinuses: Paranasal sinuses are aerated, without fluid levels, mucosal thickening, or mucoceles. Mastoid air cells are aerated. Soft tissues: No edema, masses, or fluid collections. No enlarged lymph nodes. No soft tissue lacerations or debris. Presumed dystrophic calcification unchanged within the left temporal region since 2015. Vascular: Visualized vascular structures appear normal in the absence of contrast. Bony vascular foramina and canals are intact. IMPRESSION: No visualized fracture. Dictated by: Florida Farrar M.D. on 10/13/2024 at 16:30 Approved by: Florida Farrar M.D. on 10/13/2024 at 16:32 CT - cervical spine: Radiologist's Impression: [place] [address] CT Scan Report Signed Patient: Danica Gutierrez MR#: [id number] : 1940 Acct:[id number] Age/Sex: 84 / F Date of Service: 10/13/24 Loc: ED Accession Number: [id number] Procedure: CT cervical spine wo con Ordering Provider: Robin Roper PA-C PROCEDURE: CT CERVICAL SPINE WO CON INDICATIONS: Neck pain TECHNIQUE: Noncontrast 3 mm thick sections acquired from the skull base to the T4 level. Sagittal and coronal reformats were then constructed. For radiation dose reduction, the following was used: automated exposure control, adjustment of mA and/or kV according to patient size. COMPARISON: None. FINDINGS: Image quality: Excellent. Bones: No fractures or dislocations. Visualized superior ribs are intact. Soft tissues: Prevertebral soft tissues are normal in thickness. No paravertebral hematomas. No apical pneumothoraces. Multinodular thyroid. The largest single nodule is a substernal nodule measuring 2.4 x 3.6 cm. IMPRESSION: No displaced fracture or traumatic subluxation. Cervical spondylosis. Multinodular thyroid, including a 3.6 cm maximum diameter thyroid nodule. Comment: Consider further evaluation of the thyroid nodules utilizing nonemergent thyroid ultrasound. Dictated by: Dilshad Feliciano M.D. on 10/13/2024 at 16:28 Approved by: Dilshad Feliciano M.D. on 10/13/2024 at 16:31 [facility] Narrative Medical decision making narrative: ED course: this is a 84-year-old female presenting to emergency department due to a mechanical ground level fall where she fell backwards and hit her head. Patient did have some bruising around her left orbit and a CT face was ordered as well as a CT head and CT C-spine. Showed no acute abnormalities although CT C-spine did show a thyroid nodules that the patient seems to be unaware of. Strongly recommended she follow up with the primary care provider tomorrow to further examine these nodules. She did have a small laceration to her left eyebrow that was closed without complications as noted in the procedure note above. She was not presenting with any neuro deficits concerning for any kind of intracranial bleed. No other pain to address. CC: Eyebrow laceration Complicating co-morbidities: history of osteopenia Data collected from: Previous notes Medical records reviewed: Patient was seen here last roughly a year ago due to a finger dislocation. Takes 81 mg aspirin daily. History of osteopenia and essential tremor. Differential considered, but not limited to: laceration, intracranial bleed, contusion, skull fracture Exam documented above, pertinent findings include: small laceration, no neuro findings Lab Test results independently reviewed as above. Pertinent findings: none obtained Imaging studies independently reviewed: no acute changes but was positive for thyroid nodules which I recommended she follow up with the PCP. Scores Used: None MIPS Elements: None Consultations: None Treatments: Laceration repair Re-evaluations: none Discussion: Discussed plan with the patient was comfortable with the plan Diagnosis: laceration, thyroid nodules Disposition: see below, along with detailed discharge instructions that have been reviewed with patient as well as indications for ED re-evaluation and additional outpatient follow up Discharge Plan Departure Patient Disposition: Home Clinical Impression: Thyroid nodule, Laceration Activity Restrictions/Additional Instructions: Thank you for coming to the [facility] Emergency Department today. I am glad that we are able to close the laceration. You may follow up with the primary care provider or the walk-in clinic or here in 7-10 days for suture removal. Please monitor of the wound, if it starts developing any spreading redness or purulent discharge you may return for oral antibiotics as well. Your imaging today showed no evidence of any intracranial bleed, fractures. Your CT scan of your cervical area did show the thyroid nodules that we mentioned. Please call your primary care provider tomorrow for further follow up regarding this. Please return to the emergency department if you develop any Slurred speech, weakness, dizziness, loss of conscious, or any other concerning signs or symptoms. I hope you feel better soon. Please follow up with your primary care provider within a week if your symptoms continue. If you do not have a primary care provider please contact the [facility] Resource line at [phone]. They will ask some questions about your medical history and help you get set up with a provider in the community. Prescriptions: No Action aspirin 81 MG tablet,delayed release (DR/EC) 81 mg PO QDAY Qty: 0 Vit E 1 cap PO DAILY B Complex 1 cap PO .QD Calcium 1 tab PO DAILY rosuvastatin 10 mg tablet 10 mg PO DAILY Qty: 90 3RF letrozole [Femara] 2.5 mg tablet 2.5 mg PO DAILY tolterodine 4 mg capsule,extended release 24hr See Rx Instructions .ROUTE .COMPLEX Qty: 90 3RF Dose Instruction: TAKE ONE CAPSULE BY MOUTH ONE TIME DAILY for urge incontinence Rx Instructions: TAKE ONE CAPSULE BY MOUTH ONE TIME DAILY for urge incontinence lutein 20 mg Tablet 20 mg PO DAILY multivitamin Capsule 1 cap PO DAILY cholecalciferol (vitamin D3) [Vitamin D3] 125 mcg (5,000 unit) Tablet 5,000 unit PO DAILY Referrals: Madeleine Sepulveda DO [Primary Care Provider] - Stand Alone Forms: Patient Portal/API/Survey
[2024-10-13] MEDS: TET,DIPH,PERTUSS(ACELL),VAC/PF 0.5 ML SYRINGE IM (15:48)
--- NOTE | 2024-10-13 15:48 | DI.CT.S_ITS ---
PROCEDURE: CT CERVICAL SPINE WO CON INDICATIONS: Neck pain TECHNIQUE: Noncontrast 3 mm thick sections acquired from the skull base to the T4 level. Sagittal and coronal reformats were then constructed. For radiation dose reduction, the following was used: automated exposure control, adjustment of mA and/or kV according to patient size. COMPARISON: None. FINDINGS: Image quality: Excellent. Bones: No fractures or dislocations. Visualized superior ribs are intact. Soft tissues: Prevertebral soft tissues are normal in thickness. No paravertebral hematomas. No apical pneumothoraces. Multinodular thyroid. The largest single nodule is a substernal nodule measuring 2.4 x 3.6 cm. IMPRESSION: No displaced fracture or traumatic subluxation. Cervical spondylosis. Multinodular thyroid, including a 3.6 cm maximum diameter thyroid nodule. Comment: Consider further evaluation of the thyroid nodules utilizing nonemergent thyroid ultrasound. Dictated by: Dilshad Feliciano M.D. on 10/13/2024 at 16:28 Approved by: Dilshad Feliciano M.D. on 10/13/2024 at 16:31
--- NOTE | 2024-10-13 15:48 | DI.CT.S_ITS ---
PROCEDURE: CT FACIAL BONES WO CON INDICATIONS: L orbital bone bruising after trauma TECHNIQUE: Noncontrast 2.5 mm thick axial images acquired from the mandible through the frontal sinuses, with coronal and sagittal reformatting. For radiation dose reduction, the following was used: automated exposure control, adjustment of mA and/or kV according to patient size. COMPARISON: [facility], CT, HEAD WITHOUT CONTRAST, 07/31/2015, 14:59. [facility], CT, CT HEAD/BRAIN WO CON, 10/13/2024, 16:09. FINDINGS: Image quality: Excellent. Bones and teeth: Orbital renteria are intact. Sinus renteria show no fracture or deformity. Nasal bones and septum are intact. Visualized portions of the mandible demonstrate no fractures or subluxation. Zygomatic arches are intact. Pterygoid plates are intact. Visualized portions of the skull base and auditory canals are intact. Sinuses: Paranasal sinuses are aerated, without fluid levels, mucosal thickening, or mucoceles. Mastoid air cells are aerated. Soft tissues: No edema, masses, or fluid collections. No enlarged lymph nodes. No soft tissue lacerations or debris. Presumed dystrophic calcification unchanged within the left temporal region since 2014. Vascular: Visualized vascular structures appear normal in the absence of contrast. Bony vascular foramina and canals are intact. IMPRESSION: No visualized fracture. Dictated by: Florida Farrar M.D. on 10/13/2024 at 16:30 Approved by: Florida Farrar M.D. on 10/13/2024 at 16:32
--- NOTE | 2024-10-13 15:48 | DI.CT.S_ITS ---
PROCEDURE: CT HEAD/BRAIN WO CON INDICATIONS: Head injury TECHNIQUE: Noncontrast 4.5 mm thick angled axial sections acquired from the foramen magnum to the vertex, with coronal and sagittal reformats. For radiation dose reduction, the following was used: automated exposure control, adjustment of mA and/or kV according to patient size. COMPARISON: [facility], CT, HEAD WITHOUT CONTRAST, 07/31/2015, 14:59. FINDINGS: Image quality: Diagnostic. CSF spaces: Basal cisterns are patent. No extra-axial fluid collections. The ventricles are symmetric in size and shape. Brain: No intracranial bleeds or masses. There is cerebral volume loss for age, with resultant ventricular and sulcal prominence. There are moderate to severe, age-appropriate periventricular and deep white matter chronic small vessel ischemic changes. There is intracranial internal carotid artery atherosclerosis. Skull and face: Calvarium and visualized facial bones appear intact, without suspicious lesions. Sinuses: Visualized sinuses and mastoids are clear. IMPRESSION: 1. No acute intracranial process. 2. Age-related volume loss and moderate to severe small vessel ischemic change. Dictated by: Dilshad Feliciano M.D. on 10/13/2024 at 16:26 Approved by: Dilshad Feliciano M.D. on 10/13/2024 at 16:27
== END 2024-10-13 17:26 | disposition home or self-care (01) ==
PROVIDERS: Emergency Provider Physician Assistant Medical; Family Provider Nurse Practitioner; PCP Family Medicine
DX: S01.112A Laceration without foreign body of left eyelid and periocular area, initial encounter (principal); M54.2 Cervicalgia; W18.09XA Striking against other object with subsequent fall, initial encounter; Z23 Encounter for immunization
CPT/HCPCS: 12001; 70450; 70486; 72125; 90471; 99284; 90715

== ENCOUNTER → 2024-10-28 14:54 | Outpatient (CLI) | payer MEDICARE, OTHER, SELFPAY ==
--- NOTE | 2024-10-28 14:58 | DI.US.S_ITS ---
PROCEDURE: US THYROID INDICATIONS: multinodular thyroid noted on CT neck TECHNIQUE: Real-time scanning was performed of the thyroid gland, with image documentation. COMPARISON: [facility], CT, CT CERVICAL SPINE WO CON, 10/13/2024, 16:09. FINDINGS: Thyroid: Right lobe measures 3.7 x 1.8 x 1.5 cm. Left lobe measures 6.2 x 1.9 x 2.2 cm. Isthmus is 0.9 cm thick. Echotexture is homogeneous. Nodule number: 1 Location: Left mid Size: 2.4 x 1.7 x 1.7 cm Composition: Solid Echogenicity: Hypoechoic Shape: wider than tall. Margins: Ill-defined Echogenic foci: Macrocalcifications Total points: 5 ACR TI-RADS category: 4 Nodule number: 2 Location: Left inferior exophytic (corresponds to CT finding) Size: 2.7 x 3.4 x 2.5 cm Composition: Solid Echogenicity: Hypoechoic Shape: wider than tall. Margins: Ill-defined Echogenic foci: Macrocalcifications Total points: 5 ACR TI-RADS category: 4 IMPRESSION: Left-sided thyroid nodules as described above. Recommend ultrasound-guided fine-needle aspiration of nodules #1 and #2. ACR TI-RADS definitions and recommendations: TI-RADS 1 (benign): 0 points. FNA not needed. TI-RADS 2 (not suspicious): 2 points. FNA not needed. TI-RADS 3: 3 points. * FNA if 2.5 cm or larger, follow up if 1.5 cm or larger (at 1, 3, and 5 years). TI-RADS 4: 4-6 points. * FNA if 1.5 cm or larger, follow up if 1 cm or larger (at 1, 2, 3, and 5 years). TI-RADS 5: 7 points or more. * FNA if 1 cm or larger, follow up if 0.5 cm or larger (every year for 5 years). Approved by: Monty Apple M.D. on 10/29/2024 at 11:15
== END ==
PROVIDERS: Family Provider Nurse Practitioner; PCP Family Medicine; Referring Provider Family Medicine; Visit Provider Family Medicine
DX: E04.2 Nontoxic multinodular goiter (principal)
CPT/HCPCS: 76536

== ENCOUNTER → 2024-11-22 08:31 | Outpatient (CLI) | payer MEDICARE, OTHER, SELFPAY ==
--- NOTE | 2024-11-22 | PATH_ITS ---
Note [facility] Accession Number: [id number] TESTS RESULT FLAG UNITS REF RANGE LAB Clinician Provided Cytology Information No. of containers..02 Previously Prepared Cytology Slide 35 Unknown Storage/container code(s) Source: SUPERIOR LEFT THYROID NODULE #1 (A) DIAGNOSIS: 01 SUPERIOR LEFT THYROID NODULE #1 (A), FINE NEEDLE ASPIRATION. ADEQUATE FOR EVALUATION. FOLLICULAR GROUPS ARE PRESENT. BENIGN FOLLICULAR (GOITEROUS) NODULE (B[place]ESDA CATEGORY II), SEE COMMENT. COMMENT: MICROSCOPIC EXAMINATION REVEALS A MILDLY CELLULAR ASPIRATE, COMPOSED OF COLLOID, FOLLICULAR GROUPS WITHOUT SIGNIFICANT CYTOLOGIC OR ARCHITECTURAL ATYPIA, AND BACKGROUND MACROPHAGES. THESE FINDINGS SUPPORT A BENIGN FOLLICULAR (GOITEROUS) NODULE. CORRELATION WITH CLINICAL AND RADIOGRAPHIC FINDINGS IS RECOMMENDED. ACCORDING TO THE [place] REPORTING SYSTEM FOR THYROID CYTOPATHOLOGY, THE RISK OF MALIGNANCY IN THE CATEGORY BENIGN-CATEGORY II IS 0-3%; THEREFORE RECOMMEND CONTINUED ULTRASOUND SURVEILLANCE WITH REPEAT FNA IF THE NODULE SIGNIFICANTLY INCREASES IN SIZE. Pathologist ICD10: 01 E04.1 Signed out by: Kayla Mendez MD, Pathologist NPI- [id number] Performed by: Kayla Mccauley, Grey Stock Recorder ([facility]) Gross description: 01 30 CC, PINK, CLEAR RECIEVED: IN CYTOLYT WITH 6 ALCOHOL FIXED AND 6 QUICK STAINED SLIDES ALSO 1 RNA VIAL WILL ON 03-18-2025.VO /VDU 11/23/[address] [facility] FLAG LEGEND: L-Low Normal,H-High Normal,LL-Alert Low,HH-Alert High <-Panic Low,>-Panic High,A-Abnormal,AA-Critical Abnormal Performed at: 01 =[address], [place] [address] Bo Sy MD, Performed at: [address] [address], [place], [place] [id number] MD Bo Sy MD Phone: [phone]
--- NOTE | 2024-11-22 | PATH_ITS ---
Note [facility] Accession Number: [id number] TESTS RESULT FLAG UNITS REF RANGE LAB Clinician Provided Cytology Information No. of containers..02 Previously Prepared Cytology Slide 35 Unknown Storage/container code(s) Source: INFERIOR LEFT THYROID NODULE #2 (B) DIAGNOSIS: 01 INFERIOR LEFT THYROID NODULE #2 (B), FINE NEEDLE ASPIRATION. ADEQUATE FOR EVALUATION. FOLLICULAR GROUPS ARE PRESENT. BENIGN FOLLICULAR (GOITEROUS) NODULE (BETHESDA CATEGORY II), SEE COMMENT. COMMENT: MICROSCOPIC EXAMINATION REVEALS A MILDLY CELLULAR ASPIRATE, COMPOSED OF COLLOID, FOLLICULAR GROUPS WITHOUT SIGNIFICANT CYTOLOGIC OR ARCHITECTURAL ATYPIA, AND BACKGROUND MACROPHAGES. THESE FINDINGS SUPPORT A BENIGN FOLLICULAR (GOITEROUS) NODULE. CORRELATION WITH CLINICAL AND RADIOGRAPHIC FINDINGS IS RECOMMENDED. ACCORDING TO THE [place] REPORTING SYSTEM FOR THYROID CYTOPATHOLOGY, THE RISK OF MALIGNANCY IN THE CATEGORY BENIGN-CATEGORY II IS 0-3%; THEREFORE RECOMMEND CONTINUED ULTRASOUND SURVEILLANCE WITH REPEAT FNA IF THE NODULE SIGNIFICANTLY INCREASES IN SIZE. Pathologist ICD10: 01 E04.1 Signed out by: Kayla Mendez MD, Pathologist NPI- [id number] Performed by: Kayla Mccauley, Adjunct Psychology Faculty Member ([facility]) Gross description: 01 30 CC, RED, HAZY RECIEVED: IN CYTOLYT WITH 6 ALCOHOL FIXED AND 6 QUICK STAINED SLIDES ALSO 1 RNA VIAL WILL ON 03-18-2025.VO /VDU 11/23/2024 0747 [facility] FLAG LEGEND: L-Low Normal,H-High Normal,LL-Alert Low,HH-Alert High <-Panic Low,>-Panic High,A-Abnormal,AA-Critical Abnormal Performed at: 01 =[address], [place] [address] Bo Sy MD, Performed at: [address], [place], [place] [id number] MD Bo Sy MD Phone: [phone]
--- NOTE | 2024-11-22 08:33 | DI.US.S_ITS ---
PROCEDURE: US FINE NEEDLE ASPIRATION INDICATIONS: nodules #1 and #2 thyroid nodule TECHNIQUE: The indications, alternatives, benefits, risks, and complications of the procedure were explained to the patient. Written informed consent was obtained and placed in the chart. The thyroid region was examined sonographically and a site was chosen for ultrasound guided percutaneous sampling. The skin was prepared and draped in the usual fashion, and anesthetized with 1% lidocaine infiltrated from the skin down to the thyroid gland. Multiple passes were then performed, with contents emptied into an appropriate pathology specimen container. A bandage was applied to the area of access at completion of the study. COMPARISON: None. FINDINGS: Location(s) of lesion(s) sampled: Upper pole left thyroid lobe nodule and lower pole left thyroid lobe nodule [place]: 25 gauge hypodermic needles. Number of passes: 6 passes for each nodule. Medications: 1% lidocaine for local anaesthesia. Complications: None. IMPRESSION: Successful ultrasound-guided thyroid nodule fine needle aspiration, with cytology results pending. Please see chart below for management recommendations based on cytology results. [facility] ReportingRecommendationsNon-diagnostic* Repeat US-guided FNA, with on-site cytology evaluation if possible. * Repeated non-diagnostic nodules without high suspicion US features: close observation vs surgical consult. * Consider surgery if nodule has high suspicion US features, grows >20% in 2 dimensions on followup, or patient has clinical risk factors for malignancy. Benign* If nodule has high suspicion US features: repeat US and FNA within 12 months. * If nodule has low to intermediate suspicion US features: repeat US at 12-24 months. If nodule grows (20% increase in at least 2 dimensions, with minimal increase of 2 mm or >50% change in volume), or development of new suspicious US features, then repeat FNA or continue followup. * If nodule has very low suspicion US features: followup US at >24 months. Atypia of undetermined significance, follicular lesion of undetermined significanceRepeat FNA, molecular testing, followup US, or surgical consult.Follicular neoplasm, suspicious for follicular neoplasmSurgical consult; also consider molecular testing. Suspicious for malignancySurgical consult.MalignantSurgical consult. Dictated by: Carmelo Bahena M.D. on 11/22/2024 at 13:04 Approved by: Carmelo Bahena M.D. on 11/22/2024 at 13:04
== END ==
PROVIDERS: Family Provider Nurse Practitioner; PCP Family Medicine; Visit Provider Radiology Diagnostic Radiology
DX: E04.1 Nontoxic single thyroid nodule (principal)
CPT/HCPCS: 10005